=== PATIENT | male | born 1940 | race Hispanic/Latino ===

== ENCOUNTER 2019-11-19 09:31 | Emergency (ER) | payer MEDICARE, MEDICAID, SELFPAY ==
--- NOTE | 2019-11-19 09:57 | ECG_ITS ---
Measurements Intervals [employer] Rate: 60 P: 48 MA: 160 QRS: 39 QRSD: 84 T: 45 QT: 408 QTc: 409 Interpretive Statements SINUS RHYTHM DELAYED PRECORDIAL R/S TRANSITION BORDERLINE ECG Electronically Signed On 11-19-2019 11:45:10 ENGINE ASSEMBLER by Shakir Candelaria D.O.
[2019-11-19 09:58] VITALS: BP 133/66; PULSE 59; RESP 19; TEMP 36.6; O2SAT 100
[2019-11-19 10:15] LABS: Basophils Percent Auto 0.7 % (0.2-1.2); Eosinophils Absolute Auto 0.1 K/mm3 (0-0.3); Eosinophils Percent Auto 0.8 % (0-4.4); Hematocrit 33.5 % (42.0-52.0); Hemoglobin 11.1 g/dL (14.0-18.0); Immature Granulocyte Absolute 0.01 K/mm3 (0.00-0.031); Immature Granulocyte Percent A 0.2 % (0-0.5); Lymphocytes Absolute Auto 1.43 K/mm3 (0.9-3.2); Lymphocytes Percent Auto 24.2 % (18.3-44.2); Mean Corpuscular HGB Conc 33.1 g/dl (32-36); Mean Corpuscular Hemoglobin 32.7 pg (26-34); Mean Corpuscular Volume 98.8 fl (80-100); Mean Platelet Volume 9.4 fl (7.4-10.4); Monocytes Absolute Auto 0.3 K/mm3 (0.1-0.6); Monocytes Percent Auto 5.4 % (2.6-8.5); Neutrophils Absolute Auto 4.1 K/mm3 (1.3-6.7); Neutrophils Percent Auto 68.7 % (45.5-73.1); Platelet Count Result 198 k/mm3 (150-375); Red Blood Count 3.39 M/mm3 (4.6-6.20); Red Cell Distribution Width 12.3 % (11.5-14.5); White Blood Count 5.9 K/mm3 (4.5-10.0)
[2019-11-19 10:35] LABS: Alanine Aminotransferase 16 U/L (4-50); Alkaline Phosphatase 63 U/L (38-126); Aspartate Amino Transferase 24 U/L (17-59); Bilirubin,Total 0.4 mg/dL (0.2-1.3); Blood Urea Nitrogen 17 mg/dL (9-20); Carbon Dioxide 23 mmol/L (22-30); Chloride 103 mmol/L (98-107); Estimated Glomerular Filt Rate > 60; Glucose 121 mg/dL (75-110); Lipase 52 U/L (23-300); Potassium 3.9 mmol/L (3.4-5.0); Sodium 139 mmol/L (137-145)
--- NOTE | 2019-11-19 11:40 | ED.NAVMDI ---
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 Family at bedside translating states that, pt began having discomfort and hearing fluid moving around inside of his rt ear. He also notes feeling dizzy, which he describes as everything spinning, and he feels like he is going to faint. Pt notes his dizziness worsens when standing up and when turning his head to each side. He reports his N/V being accompanied with bloating, epigastric ABD pain, and decreased intake of food or liquids, but denies having a fever, diarrhea, constipation, or having any sick contacts. MD elicited complaint: nausea, vomiting, abdominal pain and other (rt ear discomfort) Onset (ago): day(s) (a couple) Associated nausea: Yes Associated abdominal pain: Yes Location of pain: epigastric and other (rt ear) Quality: other (bloating) Exacerbating factors: movement (dizziness) and standing (dizziness) Associated symptoms: loss of appetite, nausea/vomiting, bloating and other (rt ear discomfort, dizziness, lightheadedness) Related Data Allergies Allergy/AdvReac Type Severity Reaction Status Date / Time atorvastatin Allergy Unknown Unknown Verified 05/30/18 11:29 Review of Systems Review of Systems: All systems reviewed & are unremarkable except as noted in HPI and below Constitutional: Constitutional: Denies fever(s) ENT: Reports vertigo, Reports dizziness and Reports otalgia (rt ear, feels fluid in ears ) Gastrointestinal: Gastrointestinal: Reports abdominal pain (epigastric), Reports bloating, Denies constipation, Denies diarrhea, Reports nausea, Reports vomiting and Reports other (decreased food and liquid intake) PMFSH Past Medical History Medical History (Updated 11/19/19 @ 17:07 by William Soto MD) Anemia Hypercholesteremia Prostate cancer Surgical History Surgical History (Updated 11/19/19 @ 13:37 by Aurora Greenfield DECA) No significant past surgical history Social History Social History (Updated 11/19/19 @ 13:38 by Aurora Greenfield DECA) Smoking status: Unknown if ever smoked Gender identity (if verbalized by the patient): Male Exam Const: General: healthy appearing and no acute distress Nutritional Appearance: well nourished HENMT: Ears: TM abnormal (rt) other (hazy) Mouth: Yes lip normal and Yes dry mucous membranes Eyes: Conjunctivae: conjunctivae normal Pupils: Equal, round and reactive pupils present Resp: Effort & Inspection: normal respiratory effort Auscultation: clear to auscultation bilaterally Cardio: Rate: regular rate Rhythm: regular rhythm Heart sounds: no murmurs GI: GI Palp: Yes abdominal tenderness (epigastric) and Yes Soft to palpation Auscultation: normal bowel sounds Back/Spine/Pelvis: Other: Full ROM Skin: General skin exam: normal color, dry skin and other (warm) Neuro: General: patient oriented x3 (alert) Speech: normal speech Extrem: General: full ROM Psych: Mental Status: mental status grossly normal Affect: normal affect Course Vital Signs Vital signs: Vital Signs Temperature 36.6 C 11/19/19 09:58 Pulse Rate 59 L 11/19/19 09:58 Respiratory Rate 19 11/19/19 09:58 Blood Pressure 133/66 11/19/19 09:58 Pulse Oximetry 100 11/19/19 09:58 Temperature 36.6 C 11/19/19 09:58 Pulse Rate 68 11/19/19 13:30 Respiratory Rate 19 11/19/19 09:58 Blood Pressure 133/71 11/19/19 13:30 Pulse Oximetry 100 11/19/19 09:58 MDM - Nausea/Vomiting/Diarrhea Lab Data Result diagrams: 11/19/19 10:06 11/19/19 10:06 Labs: Lab Results 11/19/19 11/19/19 11/19/19 Range/Units 1
[2019-11-19] MEDS: SODIUM CHLORIDE 0.9% IV 1,000 ML 999 ML IV CONT ×2 (12:07→15:45)
[2019-11-19] MEDS: ONDANSETRON INJ 4 MG/2 ML VIAL IV PUSH (12:07)
[2019-11-19 12:47] LABS: Add Urine Microscopic? NO; Appearance Urine Clear (Clear); Bilirubin Urine Negative (Negative); Blood Urine Negative (Negative); Color Urine Yellow (Yellow); Glucose Urine UA Negative (Negative); Ketones Urine Negative (Negative); Leukocyte Esterase Ur Negative LEU/UL (Negative); Nitrate Urine Negative (Negative); Protein Urine Negative (Negative); Specific Grav Ur 1.016 (1.001-1.035); Urobilinogen Urine Negative mg/dL (<2.0)
[2019-11-19 13:30] VITALS: BP 126/61; BP 127/72; BP 133/71; PULSE 64; PULSE 66; PULSE 68
[2019-11-19 15:00] VITALS: BP 112/78; PULSE 81; RESP 18; O2SAT 98
[2019-11-19] MEDS: MECLIZINE HCL 25 MG TABLET PO (15:45)
[2019-11-19 16:00] VITALS: BP 117/87; PULSE 78; RESP 19; O2SAT 99
[2019-11-19 17:20] VITALS: BP 110/76; PULSE 71; RESP 16; O2SAT 100
== END 2019-11-19 17:20 | disposition home or self-care (01) ==
PROVIDERS: Emergency Provider Emergency Medicine; PCP Internal Medicine Infectious Disease
DX: R11.2 Nausea with vomiting, unspecified (principal); Z85.46 Personal history of malignant neoplasm of prostate; E78.5 Hyperlipidemia, unspecified; R42 Dizziness and giddiness; R94.31 Abnormal electrocardiogram [ECG] [EKG]
CPT/HCPCS: 36415; 80053; 81003; 83690; 85025; 93005; 96361; 96374; 99284; A9270; J2405; J7030

== ENCOUNTER 2021-07-31 08:57 | Emergency (ER) | payer MEDICARE, MEDICAID, SELFPAY ==
[2021-07-31 09:18] VITALS: BP 122/64; PULSE 70; RESP 18; TEMP 37.1; O2SAT 97
--- NOTE | 2021-07-31 09:41 | ED.GENADULT ---
HPI - General Adult General Chief complaint: Dental/Oral Stated complaint: facial swelling Time Seen by Provider: 07/31/21 09:09 Source: patient and family ( and daughter) Mode of arrival: ambulatory Limitations: no limitations History of Present Illness HPI narrative: Patient is a 81-year-old male presenting with chief complaint of right lower jaw dental pain and swelling that has been worsening over the past week. The patient has been under the management of her dentist and last saw them on 07-23-21. Patient states that he needs more work performed as far as treatment and cleaning his teeth however his next appointment is not until September. Patient states that he is on the waiting list hoping to obtain an earlier appointment. Patient denies fever, chills, drainage from the tooth site, nausea, vomiting. He reports that he has been using Neosporin on the tooth and taking the aspirin. He reports the pain is still intense. Patient denies any other injuries or concerns. Related Data Allergies Allergy/AdvReac Type Severity Reaction Status Date / Time atorvastatin AdvReac Unknown Unknown Verified 07/31/21 09:22 Review of Systems Review of Systems: CONSTITUTIONAL: Denies fever, chills, or sweats. EYES: Denies visual changes, redness, or discharge. ENT: Reports dental pain denies rhinorrhea, congestion, sore throat, or otalgia. CARDIOVASCULAR: Denies chest pain, palpitations, or edema. RESPIRATORY: Denies cough or dyspnea. GASTROINTESTINAL: Denies abdominal pain, nausea, vomiting, or diarrhea. GENITOURINARY: Denies dysuria or hematuria. SKIN: Denies rash or itching. MUSCULOSKELETAL: Denies back pain, joint pain, or myalgia. NEUROLOGIC: Denies headache, numbness, dizziness, or weakness. PSYCHIATRIC: Denies anxiety or depression. PMFSH Past Medical History Medical History (Updated 07/31/21 @ 09:41 by Jennie Echols PA-C) Anemia Hypercholesteremia Prostate cancer Surgical History Surgical History (Updated 11/19/19 @ 13:37 by KARINA Macias) No significant past surgical history Social History Social History (Updated 11/19/19 @ 13:38 by KARINA Macias) Smoking status: Unknown if ever smoked Gender identity (if verbalized by the patient): Male Exam Narrative: GENERAL: Well-appearing, well-nourished, and in no acute distress. HEAD: Normocephalic, atraumatic. EYES: PERRLA and EOMI. ENT: Nares clear, no rhinorrhea or epistaxis. Mucous membranes moist. Oropharynx without tonsillar hypertrophy exudate or other lesions. Bilateral TMs pearly loyola nonbulging. Poor dentition throughtout. Tenderness to right lower molar. no abscess noted to gumline. CHEST: Clear to auscultation. No respiratory distress. No wheezes rales or rhonchi HEART: Regular rate and rhythm. EXTREMITIES: Normal range of motion. No edema. SKIN: Warm, dry, no rash. NEURO: No focal deficits. Alert and oriented x3. PSYCH: Normal mood and affect. Course Vital Signs Vital signs: Vital Signs Temperature 98.7 F 07/31/21 09:18 Pulse Rate 70 07/31/21 09:18 Respiratory Rate 18 07/31/21 09:18 Blood Pressure 122/64 07/31/21 09:18 Pulse Oximetry 97 07/31/21 09:18 Temperature 98.7 F 07/31/21 09:18 Pulse Rate 70 07/31/21 09:18 Respiratory Rate 18 07/31/21 09:18 Blood Pressure 122/64 07/31/21 09:18 Pulse Oximetry 97 07/31/21 09:18 Medical Decision Making MDM Narrative Medical decision making narrative: Discussed the importance of definitive treatment with a dentist. Discussed plan of care. Discussed return to emergency department instructions. Patient is nontoxic and vital signs are stable. Patient will be discharged home. Vital Signs Vital Signs: Vital Signs Temperature 98.7 F 07/31/21 09:18 Pulse Rate 70 07/31/21 09:18 Respiratory Rate 18 07/31/21 09:18 Blood Pressure 122/64 07/31/21 09:18 Pulse Oximetry 97 07/31/21 09:18 Temperature 98.7 F 07/31/21 09:18 Pulse Ra
[2021-07-31] MEDS: traMADol HCL (*CRX) 50 MG TABLET PO (10:08)
[2021-07-31 10:12] VITALS: BP 118/90; PULSE 71; RESP 14; TEMP 36.5; O2SAT 98
== END 2021-07-31 10:13 | disposition home or self-care (01) ==
LOC: ANHED 09:50
PROVIDERS: Emergency Provider Emergency Medicine; PCP Internal Medicine Infectious Disease
DX: K02.9 Dental caries, unspecified (principal); K08.89 Other specified disorders of teeth and supporting structures; E78.00 Pure hypercholesterolemia, unspecified; Z85.46 Personal history of malignant neoplasm of prostate; Z86.2 Personal history of diseases of the blood and blood-forming organs and certain disorders involving the immune mechanism
CPT/HCPCS: 99283; A9270

== ENCOUNTER 2022-07-23 07:52 | Inpatient (IN) | payer MEDICARE, MEDICAID, SELFPAY ==
[2022-07-23] VITALS (20 sets, daily range): BP systolic 127–166; BP diastolic 61–80; PULSE 58–74; RESP 16–20; TEMP 36.3–36.4; O2SAT 96–100; BMI 22.0
--- NOTE | ~2022-07-23 | MR_ITS ---
EXAMINATION: MR brain/brain stem wo/w con DATE: 07/24/2022 09:34 INDICATION: Vertebral artery occlusion. TECHNIQUE: Magnetic resonance imaging (MRI) of the brain and brainstem was performed without and with 11 mL MultiHance intravenous contrast. COMPARISON: None. 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 There are scattered areas of nonspecific incre ased T2-weighted signal intensity in the cerebral white matter, which is within normal limits for the patient's age. There is no intracranial hemorrhage, acute infarction, or abnormal intracranial mass lesion. The ventricles are normal in size. The orbits are normal. There is mild mucosal thickening in the paranasal sinuses. The mastoid air cells are normal. IMPRESSION: 1. 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 Reviewed, dictated and finalized at location B.
--- NOTE | ~2022-07-23 | NM_ITS ---
EXAMINATION: NM bone scan whole body DATE: 07/25/2022 13:53 INDICATION: Metastatic prostate cancer. TECHNIQUE: 22.9 mCi Tc-99m HDP was administered intravenously. Delayed whole-body scintigrams were o btained. COMPARISON: CT neck 07/23/2022, CT chest, abdomen, and pelvis 09/07/2013 FINDINGS: There is increased activity in the mandible. There is joint-centered increased activity in the acromioclavicular joints, sternoclavicular joints, knees, and wrists, likely osteoarthritis. Ther e is increased activity in the spine. There is increased activity in the intertrochanteric region of proximal left femur. IMPRESSION: 1. Increased activity in the mandible correlating with a mixed lytic and sclerotic pattern by CT, whi ch may be metastatic disease and/or osteonecrosis. 2. Increased activity in the spine, consistent with spondylosis and/or metastatic disease. Consider c orrelation with CT. 3. Increased activity in the intertrochanteric region of proximal left femur suspicious for metastati c disease. Consider correlation with radiographs or CT. Reviewed, dictated and finalized at location B. IMPRESSION: 1. Increased activity in the mandible correlating with a mixed lytic and sclero tic pattern by CT, which may be metastatic disease and/or osteonecrosis. 2. Increased activity in the spine, consistent with spondylosis and/or metastat ic disease. Consider correlation with CT. 3. Increased activity in the intertrochanteric region of proximal left femur lopez spicious for metastatic disease. Consider correlation with radiographs or CT.
--- NOTE | ~2022-07-23 | CT_ITS ---
EXAMINATION: CT soft tissue neck w con DATE: 07/23/2022 09:19 INDICATION: Left facial pain and swelling. TECHNIQUE: Computed tomography (CT) of the neck was performed with 75 mL Omnipaque-350 intravenous co ntrast. Automated exposure control and iterative reconstruction technique were employed. The dose-valerie gth product was 510.25 mGy-cm. COMPARISON: Neck CT 08/27/2013 FINDINGS: The pharynx and larynx are normal. There is plaque in the proximal internal carotid arterie s with less than 50% stenosis relative to normal distal artery lumen diameter. 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 There is mild mediastinal lymphadenopathy. 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 There is severe cervical spondylosis. There are scattered scleroti c lesions in the spine. There is a mixed lytic and sclerotic pattern involving the mandible. There is fat stranding in left face. There is mild mucosal thickening in the paranasal sinuses. IMPRESSION: 1. Mixed lytic and sclerotic pattern in the mandible, which may be metastatic disease and/or osteonec rosis. 2. Worsened widespread sclerotic lesions of bone, consistent with metastatic disease. 3. Mild mediastinal lymphadenopathy, improved from 08/27/2013, which is indeterminate for residual me tastatic disease. 4. 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 Reviewed, dictated and finalized at location B. IMPRESSION: 1. Mixed lytic and sclerotic pattern in the mandible, which may be metastatic d isease and/or osteonecrosis. 2. Worsened widespread sclerotic lesions of bone, consistent with metastatic di sease. 3. Mild mediastinal lymphadenopathy, improved from 08/27/2013, which is indeter minate for residual metastatic disease. 4. 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
--- NOTE | 2022-07-23 07:56 | ED.DENTAL ---
HPI - Dental/Oral General Chief complaint: Dental/Oral Stated complaint: left sided facial swelling Time Seen by Provider: 07/23/22 07:56 Source: patient and family Mode of arrival: ambulatory Limitations: no limitations History of Present Illness HPI Narrative: Patient is an 82-year-old male presenting for evaluation of left-sided aching jaw pain that extends from his ear into his lower mandible. Patient reports pain has been worsening over the past 3 days but reports he has a history of this in the past that did resolve with antibiotics. Patient has a longstanding history of dental pain with tooth extraction in the past. Patient denies fever, chills. He denies facial redness. He had denies difficulty with chewing or swallowing. He denies significant But does report mild left-sided lower facial swelling. He denies nausea, vomiting, vision changes. He denies specific ear pain or discharge just reports radiation of mild pain from the left jaw into his ear. Describes as an aching pain. He did take medication for pain yesterday but does not know the name of it. In the past, patient symptoms have resolved with amoxicillin. ER chart reviewed, in the past patient has been seen at this facility, discharged home on amoxicillin. Related Data Allergies Allergy/AdvReac Type Severity Reaction Status Date / Time atorvastatin AdvReac Unknown Unknown Verified 07/23/22 08:11 Review of Systems Review of Systems: CONSTITUTIONAL: Denies fever HEENT: Reports left jaw pain, mild left jaw swelling CARDIOVASCULAR: Denies chest pain RESPIRATORY: Denies cough or dyspnea. GASTROINTESTINAL: Denies abdominal pain SKIN: Denies rash MUSCULOSKELETAL: Denies back pain NEUROLOGIC: Denies headache PMFSH Past Medical History Medical History Anemia Hypercholesteremia Prostate cancer Surgical History Surgical History No significant past surgical history Social History Social History Smoking status: Unknown if ever smoked Gender identity (if verbalized by the patient): Male Exam Narrative: GENERAL: Awake, alert, conversant HEAD: Normocephalic, atraumatic. Mild left lower mandibular edema. EYES: PERRLA and EOMI. ENT: Nares clear, no rhinorrhea or epistaxis. Mucous membranes moist. Uvula is midline. There is a second row of incisor molar dentition of the lower mandible that is present. Mild elevation of the soft palate. No trismus. No evidence of periapical abscess. NECK: Supple. No lymphadenopathy. No edema. CHEST: No respiratory distress, breathing even and non labored HEART: Regular rate, sinus rhythm ABDOMEN:Non distended, non tender EXTREMITIES: Normal range of motion. No edema. SKIN: Warm, dry, no rash. NEURO:No focal deficits. Alert and oriented x3. EOMs intact without nystagmus. No facial droop/asymmetry noted bilaterally. Grimace intact. Intact sensation in face. Hearing intact bilaterally. Shoulder shrug intact. Strength 5/5 bilateral upper extremities. Strength 5/5 bilateral lower extremities. Reflexes 2+ patellar. Heel to baxter intact bilaterally. Amatory with a narrow base, steady gait, no ataxia. Course Vital Signs Vital signs: Vital Signs Temperature 36.3 C L 07/23/22 08:09 Pulse Rate 74 07/23/22 08:09 Respiratory Rate 18 07/23/22 08:09 Blood Pressure 166/78 H 07/23/22 08:09 Pulse Oximetry 98 07/23/22 08:09 Oxygen Delivery Room Air 07/23/22 08:09 Temperature 36.3 C L 07/23/22 08:09 Pulse Rate 60 07/23/22 13:18 Respiratory Rate 18 07/23/22 13:18 Blood Pressure 147/61 H 07/23/22 13:18 Pulse Oximetry 98 07/23/22 13:18 Oxygen Delivery Room Air 07/23/22 08:09 MDM - Dental/Oral MDM Narrative Medical decision making narrative: Patient presenting for evaluation of acute on chronic worsening of left mandibular pain
[2022-07-23] MEDS: ACETAMINOPHEN 500 MG TABLET 1000 MG PO (08:36)
[2022-07-23] MEDS: IBUPROFEN 400 MG TABLET PO (08:37)
[2022-07-23 08:41] LABS: Basophils Percent Auto 0.3 % (0.2-1.2); Eosinophils Absolute Auto 0.1 K/mm3 (0-0.3); Hematocrit 32.6 % (42.0-52.0); Hemoglobin 10.9 g/dL (14.0-18.0); Immature Granulocyte Absolute 0.02 K/mm3 (0.00-0.031); Immature Granulocyte Percent A 0.3 % (0-0.5); Lymphocytes Absolute Auto 2.02 K/mm3 (0.9-3.2); Lymphocytes Percent Auto 33.7 % (18.3-44.2); Mean Corpuscular HGB Conc 33.4 g/dl (32-36); Mean Corpuscular Hemoglobin 32.4 pg (26-34); Mean Platelet Volume 9.4 fl (7.4-10.4); Monocytes Absolute Auto 0.4 K/mm3 (0.1-0.6); Monocytes Percent Auto 7.2 % (2.6-8.5); Neutrophils Absolute Auto 3.4 K/mm3 (1.3-6.7); Neutrophils Percent Auto 56.5 % (45.5-73.1); Platelet Count Result 246 k/mm3 (150-375); Red Blood Count 3.36 M/mm3 (4.6-6.20); Red Cell Distribution Width 13.2 % (11.5-14.5)
[2022-07-23 08:55] LABS: Anion Gap 8 mmol/L (8-16); Blood Urea Nitrogen 15 mg/dL (9-20); Calcium 8.7 mg/dL (8.4-10.2); Carbon Dioxide 26 mmol/L (22-30); Chloride 106 mmol/L (98-107); Estimated CRCL calculation 39 ml/min; Estimated Glomerular Filt Rate > 60; Glucose 94 mg/dL (65-110); Potassium 3.6 mmol/L (3.4-5.0); Sodium 140 mmol/L (137-145)
[2022-07-23] MEDS: ASPIRIN 81 MG CHEWABLE TABLET 324 MG PO (13:20)
[2022-07-23] MEDS: CLINDAMYCIN 600 MG/D5W 50 ML 600 MG/50 ML PIGGYBACK 100 MG IVPB ×2 (13:21→21:40)
[2022-07-23 13:34] LABS: SARS-CoV-2 RNA PCR Negative
[2022-07-23 15:00] LABS: CRP 2.1 mg/dL (<1.0)
[2022-07-23 15:04] LABS: Erythrocyte Sedimentation Rate 123 mm/hr (0-20)
--- NOTE | 2022-07-23 15:30 | PM.IMHP ---
H&P: HPI History of Present Illness Date/Time: 07/23/22 1530 Chief Complaint: Jaw swelling and pain Narrative: Patient is an 82-year-old speaking male with a past medical history of anemia, hypercholesteremia, prostate cancer who presented to the ED with complaints of swollen left cheek for the last 5 days. Patient stated that he has not really had much pain however he felt like he was having an infection flare up. He stated that he has had multiple episodes of this in the past and recently he went to the dentist and got a deep cleaning. At that time they also did some did to work and he thought it might have been infection flare up from that. He does state that he has pain however it is very little and at last for couple seconds and goes away. He denies any chest pain, shortness a breath, nausea, vomiting, diarrhea, constipation, lightheadedness, weakness, fatigue. He did state that he is eating. CT of the soft tissue did show that he has what appears to be a metastatic bone cancer. Patient does deny any drainage or bad taste in his mouth. He also states that he is not having any issues with eating. The ED did consult ENT and neuro due to the new finding of a thrombosis on the CT. Currently patient appears to be comfortable. Patient is being admitted to the hospitalist service as observation Was taken with Jose Manriquez ID # [id number] Review of Systems Review of Systems: All systems reviewed & are unremarkable except as noted in HPI and below PMFSH Past Medical History Medical History Anemia Hypercholesteremia Prostate cancer Surgical History Surgical History No significant past surgical history Family History Family History (Updated 07/23/22 @ 18:17 by MELVI Wheeler) Other Unknown family medical history Social History Social History (Updated 07/23/22 @ 18:18 by MELVI Wheeler) Social History: Patient lives at home with his Chitra and has been to her for 50 years. They do have 1 dog and 6 children. He wishes to be a full code at this time. Smoking status: Never smoker Alcohol intake: never Substance use: never Living arrangements: with family Occupation/Education: retired Gender identity (if verbalized by the patient): Male Sexual Orientation (if Verbalized by the Patient): Straight or Heterosexual Spiritual care concerns: No Has the Lack of Transportation Kept You From Medical Appointments or From Getting Medications?: No Within the Past 12 Months, Were You Worried Whether Your Food Would Run Out Before You Got Money to Buy More?: Never True What is Your Housing Situation Today?: I Have Housing Are You Worried That in the Next 2 Months, You May Not Have Your Own Housing to Live In?: No Do You Have Trouble Paying Your Heating Or Electricity Bill?: No Do You Have Trouble Paying For Medicines?: No Are You Currently Unemployed and Looking for Work?: No Highest Level of Education Completed: Grade School Do You Have Trouble With Childcare or the Care of a Family Member?: No Meds Home Medications and Allergies Home Medications Medication Instructions Recorded Confirmed Type abiraterone 250 mg tablet 500 mg PO DAILY 07/23/22 07/23/22 History fluticasone propionate 50 2 spray intranasal DAILY 07/23/22 07/23/22 History mcg/actuation nasal spray,suspension ibuprofen 800 mg tablet 800 mg PO Q6H PRN Pain 07/23/22 07/23/22 History mirabegron 50 mg tablet,extended 50 mg PO DAILY 07/23/22 07/23/22 History release 24 hr (Myrbetriq) prednisone 5 mg tablet 5 mg PO BID 07/23/22 07/23/22 History tamsulosin 0.4 mg capsule 0.4 mg PO DAILY 07/23/22 07/23/22 History Allergies Allergy/AdvReac Type Severity Reaction Status Date / Time atorvastatin AdvReac Unknown Unknown Verified 07/23/22 16:40 Vital Signs Vital Signs - 2
--- NOTE | 2022-07-23 16:35 | ADMGEN ---
This patient, Balaji Alonzo, was admitted to 2 Medical Room 256-. Patient/family oriented to hospital policies and general routines including ID bracelet, bed and alarms, visiting hours, pain management, procedures, bathroom and other care routines, personal items, smoking policy, room service/diet, and visiting hours. Information on how to activate the Rapid Response Team has been discussed. Patient/Family are encouraged to report perceived risks to care and to ask questions if they do not understand what they are told or what they should do.
[2022-07-24] VITALS: PULSE 82
[2022-07-24 04:00] VITALS: PULSE 65
[2022-07-24 05:41] LABS: Basophils Percent Auto 0.4 % (0.2-1.2); Eosinophils Absolute Auto 0.2 K/mm3 (0-0.3); Eosinophils Percent Auto 3.2 % (0-4.4); Hemoglobin 10.1 g/dL (14.0-18.0); Immature Granulocyte Absolute 0.02 K/mm3 (0.00-0.031); Immature Granulocyte Percent A 0.4 % (0-0.5); Lymphocytes Absolute Auto 2.06 K/mm3 (0.9-3.2); Lymphocytes Percent Auto 36.9 % (18.3-44.2); Mean Corpuscular HGB Conc 33.7 g/dl (32-36); Mean Corpuscular Hemoglobin 32.3 pg (26-34); Mean Corpuscular Volume 95.8 fl (80-100); Mean Platelet Volume 9.4 fl (7.4-10.4); Monocytes Absolute Auto 0.4 K/mm3 (0.1-0.6); Monocytes Percent Auto 7.5 % (2.6-8.5); Neutrophils Absolute Auto 2.9 K/mm3 (1.3-6.7); Neutrophils Percent Auto 51.6 % (45.5-73.1); Platelet Count Result 219 k/mm3 (150-375); Red Blood Count 3.13 M/mm3 (4.6-6.20); Red Cell Distribution Width 13.1 % (11.5-14.5); White Blood Count 5.6 K/mm3 (4.5-10.0)
[2022-07-24 05:50] LABS: Alanine Aminotransferase 13 U/L (6-50); Albumin Level 3.5 g/dL (3.5-5.1); Alkaline Phosphatase 80 U/L (38-126); Anion Gap 7 mmol/L (8-16); Aspartate Amino Transferase 21 U/L (17-59); Bilirubin,Total 0.4 mg/dL (0.2-1.3); Blood Urea Nitrogen 12 mg/dL (9-20); Calcium 8.4 mg/dL (8.4-10.2); Carbon Dioxide 24 mmol/L (22-30); Chloride 107 mmol/L (98-107); Estimated CRCL calculation 44 ml/min; Estimated Glomerular Filt Rate > 60; Glucose 87 mg/dL (65-110); Potassium 3.4 mmol/L (3.4-5.0); Sodium 138 mmol/L (137-145)
[2022-07-24 05:59] LABS: Iron 67 ug/dL (49-181); Transferrin 167 mg/dL (206-381)
[2022-07-24 06:00] VITALS: BP 151/60; PULSE 64; RESP 18; TEMP 36.7; O2SAT 97
[2022-07-24] MEDS: CLINDAMYCIN 600 MG/D5W 50 ML 600 MG/50 ML PIGGYBACK 100 MG IVPB ×3 (06:09→22:44)
[2022-07-24 06:10] LABS: Percent Iron Saturation 29 % (20-50)
[2022-07-24 07:09] LABS: Vitamin B12 > 1000.0 pg/mL (239-931)
[2022-07-24 08:00] VITALS: PULSE 65
[2022-07-24] MEDS: predniSONE 20 MG TABLET PO (09:50)
[2022-07-24] MEDS: MIRABEGRON 50 MG ER TABLET PO (09:50)
[2022-07-24] MEDS: TAMSULOSIN HCL 0.4 MG CAPSULE PO (09:50)
[2022-07-24] MEDS: ENOXAPARIN 40 MG/0.4 ML SYRINGE SUB-Q (09:50)
[2022-07-24] MEDS: CLOPIDOGREL BISULFATE 75 MG TABLET PO (09:51)
[2022-07-24] MEDS: FLUTICASONE PROPIONATE 0.05% NA SPR 16 GM BTL (*BKC) 2 SPRAY NASAL (09:51)
[2022-07-24] MEDS: ACETAMINOPHEN 325 MG TABLET 650 MG PO (09:56)
[2022-07-24] MEDS: HYDROcodone/acetaminophen (*CRX) 5-325 MG TABLET 1 TAB PO (10:14)
--- NOTE | 2022-07-24 10:30 | PM.IMPN ---
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 - Osteonecrosis, unspecified Status: Acute Assessment and Plan: CT of the neck shows lytic and sclerotic pattern of the mandible which reflects metastatic disease or osteonecrosis, worsened widespread sclerotic lesions in the bone consistent with metastatic disease ENT consulted Clindamycin IV initiated WBCs 5.6 Continue trend labs Trend left face for response to antibiotics (2) Occlusion of vertebral artery: Code(s): I65.09 - Occlusion and stenosis of unspecified vertebral artery Status: Acute Assessment and Plan: CT of the neck shows occlusion of the vertebral artery ED consulted was u Neurology who stated the patient does not need any intervention at this time Patient asymptomatic Trend neurological status Neuro consulted (3) Osteomyelitis: Code(s): M86.9 - Osteomyelitis, unspecified Status: Acute Assessment and Plan: Concerns for osteomyelitis on CT ENT consulted Continue IV clindamycin for now Trend labs Adjust therapy as indicated (4) Osteolytic lesion due to metastasis: Code(s): C79.51 - Secondary malignant neoplasm of bone Status: Acute Assessment and Plan: CT indicates metastasis Oncology consulted Will need a biopsy of some sort Await recommendations from Oncology (5) Anemia: Code(s): D64.9 - Anemia, unspecified Status: Acute Assessment and Plan: H&H stable at 10.1/30.0 Anemia labs iron 67, TIBC 233,% saturation 29, transferrin 167, ferritin 123, B12 greater than a 1000, folate 5 Supplement not indicated at this time Trend H&H Adjust therapy as indicated Transfuse of less than 7 Time Spent With Patient Time with patient: Greater than 35 minutes Subjective Date/time seen: 07/24/22 1030 Interval history: 07/24/22 1030 Patient was lying in bed. Patient asked if his family could interpret for him. His daughter did interpret for him. He did state that he is having pain about every 7 minutes and it just radiates up to his ear. He denies any current chest pain, nausea, vomiting, shortness of breath, weakness or fatigue. He does see Dr. Salguero at [facility] for his cancer treatment currently. I did explain to him that I think that this might be metastatic disease as the CT reads mostly metastatic disease. Still awaiting ENT at this time. According to his daughter the patient stated that he had thoughts this might be the cancer spreading. Currently patient is comfortable family was updated and all questions were answered. 07/23/22? [id number] Patient is an 82-year-old speaking male with a past medical history of anemia, hypercholesteremia, prostate cancer who presented to the ED with complaints of swollen left cheek for the last 5 days.? Patient stated that he has not really had much pain however he felt like he was having an infection flare up.? He stated that he has had multiple episodes of this in the past and recently he went to the dentist and got a deep cleaning.? At that time they also did some did to work and he thought it might have been infection flare up from that.? He does state that he has pain however it is very little and at last for couple seconds and goes away.? He denies any chest pain, shortness a breath, nausea, vomiting, diarrhea, constipation, lightheadedness, weakness, fatigue.? He did state that he is eating.? CT of the soft tissue did show that he has what appears to be a metastatic bone cancer.? Patient does deny any drainage or bad taste in his mouth.? He also states that he is not having any issues with eating.? The ED did consult ENT and neuro due to the new finding of a thrombosis on the CT.? Currently patient appears to be comfortable. Patient is being admitted to the hospitalist service as observation Review of Sys
--- NOTE | 2022-07-24 10:30 | P.PNIM_ITS ---
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 - Osteonecrosis, unspecified Status: Acute Assessment and Plan: * CT of the neck shows lytic and sclerotic pattern of the mandible which reflects metastatic disease or osteonecrosis, worsened widespread sclerotic lesions in the bone consistent with metastatic disease * ENT consulted * Clindamycin IV initiated * WBCs 5.6 * Continue trend labs * Trend left face for response to antibiotics (2) Occlusion of vertebral artery: Code(s): I65.09 - Occlusion and stenosis of unspecified vertebral artery Status: Acute Assessment and Plan: * CT of the neck shows occlusion of the vertebral artery * ED consulted was u Neurology who stated the patient does not need any intervention at this time * Patient asymptomatic * Trend neurological status * Neuro consulted (3) Osteomyelitis: Code(s): M86.9 - Osteomyelitis, unspecified Status: Acute Assessment and Plan: * Concerns for osteomyelitis on CT * ENT consulted * Continue IV clindamycin for now * Trend labs * Adjust therapy as indicated (4) Osteolytic lesion due to metastasis: Code(s): C79.51 - Secondary malignant neoplasm of bone Status: Acute Assessment and Plan: * CT indicates metastasis * Oncology consulted * Will need a biopsy of some sort * Await recommendations from Oncology (5) Anemia: Code(s): D64.9 - Anemia, unspecified Status: Acute Assessment and Plan: * H&H stable at 10.1/30.0 * Anemia labs iron 67, TIBC 233,% saturation 29, transferrin 167, ferritin 123, B12 greater than a 1000, folate 5 * Supplement not indicated at this time * Trend H&H * Adjust therapy as indicated * Transfuse of less than 7 Time Spent With Patient Time with patient: Greater than 35 minutes Subjective Date/time seen: 07/24/22 1030 Interval history: 07/24/22 1030 Patient was lying in bed. Patient asked if his family could interpret for him. His daughter did interpret for him. He did state that he is having pain about every 7 minutes and it just radiates up to his ear. He denies any current chest pain, nausea, vomiting, shortness of breath, weakness or fatigue. He does see Dr. Salguero at [facility] for his cancer treatment currently. I did explain to him that I think that this might be metastatic disease as the CT reads mostly metastatic disease. Still awaiting ENT at this time. According to his daughter the patient stated that he had thoughts this might be the cancer spreading. Currently patient is comfortable family was updated and all questions were answered. 07/23/22? [id number] Patient is an 82-year-old speaking male with a past medical history of anemia, hypercholesteremia, prostate cancer who presented to the ED with complaints of swollen left cheek for the last 5 days.? Patient stated that he has not really had much pain however he felt like he was having an infection flare up.? He stated that he has had multiple episodes of this in the past and recently he went to the dentist and got a deep cleaning.? At that time they also did some did to work and he thought it might have been infection flare up from that.? He does state that he has pain however it is very little and at last for couple seconds and goes away.? He denies any chest pain, shortness a breath, nausea, vomiting, diarrhea, constipation, lighthea
--- NOTE | 2022-07-24 12:56 | WPDNEURCNPN ---
Assessment and Plan Assessment and plan (1) Occlusion of vertebral artery: Code(s): I65.09 - Occlusion and stenosis of unspecified vertebral artery Status: Acute (2) Osteonecrosis of jaw: Code(s): M87.9 - Osteonecrosis, unspecified Status: Acute Plan 1 status post right vertebral artery occlusion with retrograde flow 2 metastatic disease 3 considering the underlying malignant taken continue only aspirin 81 mg daily no surgical intervention at this particular time and follow-up with the oncology Consult date: 07/24/22 Time Seen: 11:30 Reason for consult: Left-sided facial swelling HPI: Balaji Alonzo is a 82 year old male admitted to the hospital through the emergency room where he presented for the left-sided aching jaw pain from ear into his lower mandible worsening over the last 72 hours and also with longstanding history of dental pain with tooth extraction in the past. He gave no history of any other associated generalized symptomatology, no difficulties in chewing or swallowing no pain in his ear or discharge from the ear. He is known to be allergic to atorvastatin has ongoing history of anemia, hypercholesterolemia, and prostatic cancer, initial neurological examination in the emergency room was nonfocal with normal vital signs and blood pressure of 166/78. CT scan of the neck revealed evidence of left mandibular osteonecrosis versus the possibility of osteomyelitis in addition to incidental finding a vertebral artery occlusion but he had no signs of a stroke otherwise patient was started on IV clindamycin and oral steroid as per the recommendation of Dr. Espino ENT specialist MRI was recommended before any further neurological intervention could be done. CBC normal basic metabolic panel normal SARS-CoV-2 id negative soft tissue of the neck CT scan revealed mixed lytic and sclerotic pattern in the mandibular region raising the possibility of the metastatic disease and osteophyte necrosis widespread sclerotic lesions of bone were seen again compatible with metastatic disease in addition most of the right vertebral artery was documented which was new from August of 2013 the study was compared with study done in August of 2013 there was 50% stenosis of the right carotid bulb relative distal artery with new plaque at the left carotid bulb is still with 0% stenosis of the left carotid bulb right vertebral artery was thrombosed with prominent calcification at its origin and reconstitution of minimal amount of contrast in the upper cervical portion right vertebral artery could be secondary to collaterals or retrograde supply from the left vertebral artery left vertebral artery was normal there was no intracranial thrombosis or aneurysm formation cerebral arteries were symmetrical Review of Systems Review of Systems: All systems reviewed & are unremarkable except as noted in HPI and below PMFSH Past Medical History Medical History Anemia Hypercholesteremia Prostate cancer Surgical History Surgical History No significant past surgical history Family History Family History (Updated 07/23/22 @ 18:17 by MELVI Wheeler) Other Unknown family medical history Social History Social History (Updated 07/23/22 @ 18:18 by MELVI Wheeler) Social History: Patient lives at home with his Chitra and has been to her for 50 years. They do have 1 dog and 6 children. He wishes to be a full code at this time. Smoking status: Never smoker Alcohol intake: never Substance use: never Living arrangements: with family Occupation/Education: retired Gender identity (if verbalized by the patient): Male Sexual Orientation (if Verbalized by the Patient): Straight or Heterosexual Spiritual care concerns: No Has the Lack of Transportation Kept You From Medical Appointments or
[2022-07-24 14:24] VITALS: BP 112/53; PULSE 69; RESP 16; TEMP 36.2; O2SAT 96
--- NOTE | 2022-07-24 17:18 | WPDCN ---
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 From an ENT standpoint I would recommend referral to Oral maxillofacial surgeon for further evaluation treatment excess dentition. Patient would likely benefit from having these removed. Please call with any questions, consider referral to [facility] or [facility] Head [facility] neck Oncology as well the media able to manage this if it is a recurrent process. No acute otolaryngologic intervention unless Oncology would like biopsied. (2) Osteolytic lesion due to metastasis: Code(s): C79.51 - Secondary malignant neoplasm of bone Status: Acute HPI Data of Consult Date/Time: 07/24/22 17:18 Requesting Physician: Jeana Gonzalez DO Primary Care Provider: Rachel OneillZofia Consult Narrative Reason for consult: Jaw lesion Narrative: Balaji Alonzo is a 82 year old male with history of prostate cancer patient reports it has been cleared by oncologist. Admitted with radiation and recent facial swelling CT demonstrates lytic changes in the bone excess bone excess dentition as well. Patient reports he is feeling much better following a dose of steroids in course of antibiotics or current antibiotics. Patient reports a history of having more than normal the amount of teeth. He reports the bone has been changing by the teeth as well. PMFSH Past Medical History Medical History Anemia Hypercholesteremia Prostate cancer Surgical History Surgical History No significant past surgical history Family History Family History (Updated 07/23/22 @ 18:17 by MELVI Wheeler) Other Unknown family medical history Social History Social History (Updated 07/23/22 @ 18:18 by MELVI Wheeler) Social History: Patient lives at home with his Chitra and has been to her for 50 years. They do have 1 dog and 6 children. He wishes to be a full code at this time. Smoking status: Never smoker Alcohol intake: never Substance use: never Living arrangements: with family Occupation/Education: retired Gender identity (if verbalized by the patient): Male Sexual Orientation (if Verbalized by the Patient): Straight or Heterosexual Spiritual care concerns: No Has the Lack of Transportation Kept You From Medical Appointments or From Getting Medications?: No Within the Past 12 Months, Were You Worried Whether Your Food Would Run Out Before You Got Money to Buy More?: Never True What is Your Housing Situation Today?: I Have Housing Are You Worried That in the Next 2 Months, You May Not Have Your Own Housing to Live In?: No Do You Have Trouble Paying Your Heating Or Electricity Bill?: No Do You Have Trouble Paying For Medicines?: No Are You Currently Unemployed and Looking for Work?: No Highest Level of Education Completed: Grade School Do You Have Trouble With Childcare or the Care of a Family Member?: No Meds Home Medications and Allergies Home Medications Medication Instructions Recorded Confirmed Type abiraterone 250 mg tablet 500 mg PO DAILY 07/23/22 07/23/22 History fluticasone propionate 50 2 spray intranasal DAILY 07/23/22 07/23/22 History mcg/actuation nasal spray,suspension ibuprofen 800 mg tablet 800 mg PO Q6H PRN Pain 07/23/22 07/23/22 History mirabegron 50 mg tablet,extended 50 mg PO DAILY 07/23/22 07/23/22 History release 24 hr (Myrbetriq) prednisone 5 mg tablet 5 mg PO BID 07/23/22 07/23/22 History tamsulosin 0.4 mg capsule 0.4 mg PO DAILY 07/23/22
--- NOTE | 2022-07-24 19:16 | PDONCCN ---
HPI - Date of Consult Date/Time: 07/24/22 19:16 Requesting Physician: Jeana Gonzalez DO Primary Care Provider: Rachel OneillZofia - Consult Narrative Reason for consult: Jaw lesion Narrative: Balaji Alonzo is a 82 year old male with history of prostate cancer diagnosed 6 years ago currently receiving treatment with Lupron and Zometa under Dr. Salguero supervision. Patient came into the ER with left neck and cheek area swelling for last 5 days duration. He has some pain in that region. Denies any fevers chills and sore throat. He denies any other bone pain. CT soft tissue neck showed mixed lytic and sclerotic lesion in the mandible concerning for metastatic disease or osteonecrosis of the jaw. Worsened sclerotic bone metastasis and mild mediastinal lymphadenopathy. Labs showed mild anemia. Patient was also seen by ENT as well. Review of Systems - Review of Systems All systems reviewed & are unremarkable except as noted in HPI and [facility] Medical History: Medical History (Last Reviewed 07/23/22 @ 18:17 by MELVI Wheeler) Anemia Hypercholesteremia Prostate cancer Surgical History: Surgical History (Last Reviewed 07/23/22 @ 18:17 by MELVI Wheeler) No significant past surgical history Family History: Family History (Last Updated 07/23/22 @ 18:17 by MELVI Wheeler) Other Unknown family medical history - Social History Social History: Social History (Last Updated 07/23/22 @ 18:18 by MELVI Wheeler) Gender Identity: Gender identity (if verbalized by the patient): Male Sexual Orientation: Sexual Orientation (if Verbalized by the Patient): Straight or Heterosexual Alcohol Use: Alcohol intake: never Substance Use: Substance use: never Others: Spiritual care concerns: No Living Arrangements: Living arrangements: with family Oppucation/Education: Occupation/Education: retired Smoking Status: Smoking status: Never smoker Social Determinants of Health: Has the Lack of Transportation Kept You From Medical Appointments or From Getting Medications?: No Within the Past 12 Months, Were You Worried Whether Your Food Would Run Out Before You Got Money to Buy More?: Never True What is Your Housing Situation Today?: I Have Housing Are You Worried That in the Next 2 Months, You May Not Have Your Own Housing to Live In?: No Do You Have Trouble Paying Your Heating Or Electricity Bill?: No Do You Have Trouble Paying For Medicines?: No Are You Currently Unemployed and Looking for Work?: No Highest Level of Education Completed: Grade School Do You Have Trouble With Childcare or the Care of a Family Member?: No Exam - Vital Signs Vital Signs - 24 hr 07/23/22 20:00 07/23/22 22:30 07/24/22 00:00 Temperature 36.4 C L Pulse Rate 60 59 L 82 Respiratory Rate 20 Blood Pressure 135/67 Pulse Oximetry 98 07/24/22 04:00 07/24/22 06:00 07/24/22 14:24 Temperature 36.7 C 36.2 C L Pulse Rate 65 64 69 Respiratory Rate 18 16 Blood Pressure 151/60 H 112/53 L Pulse Oximetry 97 96 07/24/22 08:00 Temperature Pulse Rate 65 Respiratory Rate Blood Pressure Pulse Oximetry - Exam HEENT: EOMI, PERRLA Neck: supple Lungs: clear to auscultation, normal air movement Heart: no murmurs, gallops, or rubs, regular rhythm Abdomen: abdomen soft, non-distended, normal bowel sounds Extremities: normal pulses Integumentary: no abnormalities Psychological: mental status NL, mood NL (Swelling of the left mandible with prominent left buccal mucosa) - Lab Results Laboratory Last Values WBC 5.6 K/mm3 (4.5-10.0) 07/24/22 05:16 RBC 3.13 M/mm3 (4.6-6.20) L 07/24/22 05:16 Hgb 10.1 g/dL (14.0-18.0) L 07/24/22 05:16 Hct 30.0 % (42.0-52.0) L 07/24/22 05:16 MCV 95.8 fl (80-100) 07/24/22 05:16 MCH 32.3 pg (26-34) 07/24/22 05:16
[2022-07-24 20:23] LABS: Prostate Specific Antigen 30.3 ng/mL (< OR = 4.0)
[2022-07-24 22:13] VITALS: BP 133/66; PULSE 74; RESP 21; TEMP 36.6; O2SAT 100
[2022-07-25 05:44] LABS: Hematocrit 28.8 % (42.0-52.0); Hemoglobin 9.9 g/dL (14.0-18.0); Mean Corpuscular HGB Conc 34.4 g/dl (32-36); Mean Corpuscular Hemoglobin 32.6 pg (26-34); Mean Corpuscular Volume 94.7 fl (80-100); Mean Platelet Volume 9.5 fl (7.4-10.4); Platelet Count Result 240 k/mm3 (150-375); Red Blood Count 3.04 M/mm3 (4.6-6.20); White Blood Count 5.4 K/mm3 (4.5-10.0)
[2022-07-25] MEDS: CLINDAMYCIN 600 MG/D5W 50 ML 600 MG/50 ML PIGGYBACK 100 MG IVPB ×3 (05:58→22:01)
[2022-07-25 06:00] VITALS: BP 148/67; PULSE 68; RESP 18; TEMP 36.4; O2SAT 96
[2022-07-25 06:03] LABS: Alanine Aminotransferase 13 U/L (6-50); Albumin Level 3.5 g/dL (3.5-5.1); Alkaline Phosphatase 75 U/L (38-126); Anion Gap 6 mmol/L (8-16); Aspartate Amino Transferase 22 U/L (17-59); Bilirubin,Total 0.2 mg/dL (0.2-1.3); Blood Urea Nitrogen 13 mg/dL (9-20); Calcium 8.5 mg/dL (8.4-10.2); Carbon Dioxide 26 mmol/L (22-30); Chloride 106 mmol/L (98-107); Estimated CRCL calculation 44 ml/min; Estimated Glomerular Filt Rate > 60; Glucose 97 mg/dL (65-110); Magnesium 1.9 mg/dL (1.6-2.3); Potassium 3.4 mmol/L (3.4-5.0); Sodium 138 mmol/L (137-145)
--- NOTE | 2022-07-25 09:45 | P.PNIM_ITS ---
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 - Osteonecrosis, unspecified Status: Acute Assessment and Plan: * CT of the neck shows lytic and sclerotic pattern of the mandible which reflects metastatic disease or osteonecrosis, worsened widespread sclerotic lesions in the bone consistent with metastatic disease * ENT consulted * Clindamycin IV initiated * WBCs 5.6 * Continue trend labs * Trend left face for response to antibiotics (2) Occlusion of vertebral artery: Code(s): I65.09 - Occlusion and stenosis of unspecified vertebral artery Status: Acute Assessment and Plan: * CT of the neck shows occlusion of the vertebral artery * ED consulted was u Neurology who stated the patient does not need any intervention at this time * Patient asymptomatic * Trend neurological status * Neuro consulted (3) Osteomyelitis: Code(s): M86.9 - Osteomyelitis, unspecified Status: Acute Assessment and Plan: * Concerns for osteomyelitis on CT * ENT recommending patient be seen by an oral surgeon * Continue IV clindamycin for now * Trend labs * Adjust therapy as indicated (4) Osteolytic lesion due to metastasis: Code(s): C79.51 - Secondary malignant neoplasm of bone Status: Acute Assessment and Plan: * CT indicates metastasis * Oncology consulted * Bone scan ordered * Biopsy probably to follow * hold abiraterone for now * PSA 30.3 * Await recommendations from Oncology (5) Anemia: Code(s): D64.9 - Anemia, unspecified Status: Acute Assessment and Plan: * H&H stable at 9.9/28.8 * Anemia labs iron 67, TIBC 233,% saturation 29, transferrin 167, ferritin 123, B12 greater than a 1000, folate 5 * Supplement not indicated at this time * Trend H&H * Adjust therapy as indicated * Transfuse of less than 7 Time Spent With Patient Time with patient: Greater than 35 minutes Subjective Date/time seen: 07/25/22944 Interval history: 07/25/22944 Patient is ready to go however explained to him that we are still trying to get a couple test today. Also will follow-up with Dr. Salguero about possibly getting him in sooner. Currently patient denies any chest pain, shortness a breath, nausea, vomiting, diarrhea, constipation, weakness fatigue. He does still have some jaw pain however he rates it 1-2 out of 10. 07/24/22 1030 Patient was lying in bed. Patient asked if his family could interpret for him. His daughter did interpret for him. He did state that he is having pain about every 7 minutes and it just radiates up to his ear. He denies any current chest pain, nausea, vomiting, shortness of breath, weakness or fatigue. He does see Dr. Salguero at [facility] for his cancer treatment currently. I did explain to him that I think that this might be metastatic disease as the CT reads mostly metastatic disease. Still awaiting ENT at this time. According to his daughter the patient stated that he had thoughts this might be the cancer spreading. Currently patient is comfortable family was updated and all questions were answered. 07/23/22? 0998 Patient is an 82-year-old speaking male with a past medical history of anemia, hypercholesteremia, prostate cancer who presented to the ED with complaints of swollen left cheek for the last 5 days.? Patient stated that he has not really h
--- NOTE | 2022-07-25 09:45 | PM.IMPN ---
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 - Osteonecrosis, unspecified Status: Acute Assessment and Plan: CT of the neck shows lytic and sclerotic pattern of the mandible which reflects metastatic disease or osteonecrosis, worsened widespread sclerotic lesions in the bone consistent with metastatic disease ENT consulted Clindamycin IV initiated WBCs 5.6 Continue trend labs Trend left face for response to antibiotics (2) Occlusion of vertebral artery: Code(s): I65.09 - Occlusion and stenosis of unspecified vertebral artery Status: Acute Assessment and Plan: CT of the neck shows occlusion of the vertebral artery ED consulted was slu Neurology who stated the patient does not need any intervention at this time Patient asymptomatic Trend neurological status Neuro consulted (3) Osteomyelitis: Code(s): M86.9 - Osteomyelitis, unspecified Status: Acute Assessment and Plan: Concerns for osteomyelitis on CT ENT recommending patient be seen by an oral surgeon Continue IV clindamycin for now Trend labs Adjust therapy as indicated (4) Osteolytic lesion due to metastasis: Code(s): C79.51 - Secondary malignant neoplasm of bone Status: Acute Assessment and Plan: CT indicates metastasis Oncology consulted Bone scan ordered Biopsy probably to follow hold abiraterone for now PSA 30.3 Await recommendations from Oncology (5) Anemia: Code(s): D64.9 - Anemia, unspecified Status: Acute Assessment and Plan: H&H stable at 9.9/28.8 Anemia labs iron 67, TIBC 233,% saturation 29, transferrin 167, ferritin 123, B12 greater than a 1000, folate 5 Supplement not indicated at this time Trend H&H Adjust therapy as indicated Transfuse of less than 7 Time Spent With Patient Time with patient: Greater than 35 minutes Subjective Date/time seen: 07/25/22944 Interval history: 07/25/22944 Patient is ready to go however explained to him that we are still trying to get a couple test today. Also will follow-up with Dr. Salguero about possibly getting him in sooner. Currently patient denies any chest pain, shortness a breath, nausea, vomiting, diarrhea, constipation, weakness fatigue. He does still have some jaw pain however he rates it 1-2 out of 10. 07/24/22 1030 Patient was lying in bed. Patient asked if his family could interpret for him. His daughter did interpret for him. He did state that he is having pain about every 7 minutes and it just radiates up to his ear. He denies any current chest pain, nausea, vomiting, shortness of breath, weakness or fatigue. He does see Dr. Salguero at [facility] for his cancer treatment currently. I did explain to him that I think that this might be metastatic disease as the CT reads mostly metastatic disease. Still awaiting ENT at this time. According to his daughter the patient stated that he had thoughts this might be the cancer spreading. Currently patient is comfortable family was updated and all questions were answered. 07/23/22? 1530 Patient is an 82-year-old speaking male with a past medical history of anemia, hypercholesteremia, prostate cancer who presented to the ED with complaints of swollen left cheek for the last 5 days.? Patient stated that he has not really had much pain however he felt like he was having an infection flare up.? He stated that he has had multiple episodes of this in the past and recently he went to the dentist and got a deep cleaning.? At that time they also did some did to work and he thought it might have been infection flare up from that.? He does state that he has pain however it is very little and at last for couple seconds and goes away.? He denies any chest pain, shortness a breath, nausea, vomiting, diarrhea, constipation, lightheadedness, we
[2022-07-25] MEDS: predniSONE 20 MG TABLET PO (10:25)
[2022-07-25] MEDS: TAMSULOSIN HCL 0.4 MG CAPSULE PO (10:25)
[2022-07-25] MEDS: CLOPIDOGREL BISULFATE 75 MG TABLET PO (10:25)
[2022-07-25] MEDS: MIRABEGRON 50 MG ER TABLET PO (10:25)
[2022-07-25] MEDS: ENOXAPARIN 40 MG/0.4 ML SYRINGE SUB-Q (10:26)
[2022-07-25] MEDS: FLUTICASONE PROPIONATE 0.05% NA SPR 16 GM BTL (*BKC) 2 SPRAY NASAL (10:26)
[2022-07-25 10:30] VITALS: PULSE 68; RESP 18; O2SAT 96
[2022-07-25 14:00] VITALS: BP 143/71; PULSE 80; RESP 12; TEMP 36.2; O2SAT 98
[2022-07-25 22:45] VITALS: BP 144/67; PULSE 65; RESP 18; TEMP 36.1; O2SAT 97
[2022-07-26 06:07] LABS: Basophils Percent Auto 0.4 % (0.2-1.2); Eosinophils Percent Auto 0.6 % (0-4.4); Hematocrit 28.4 % (42.0-52.0); Hemoglobin 9.7 g/dL (14.0-18.0); Immature Granulocyte Absolute 0.03 K/mm3 (0.00-0.031); Immature Granulocyte Percent A 0.6 % (0-0.5); Lymphocytes Absolute Auto 2.29 K/mm3 (0.9-3.2); Lymphocytes Percent Auto 42.5 % (18.3-44.2); Mean Corpuscular HGB Conc 34.2 g/dl (32-36); Mean Corpuscular Hemoglobin 32.6 pg (26-34); Mean Corpuscular Volume 95.3 fl (80-100); Mean Platelet Volume 9.2 fl (7.4-10.4); Monocytes Absolute Auto 0.4 K/mm3 (0.1-0.6); Monocytes Percent Auto 7.8 % (2.6-8.5); Neutrophils Absolute Auto 2.6 K/mm3 (1.3-6.7); Neutrophils Percent Auto 48.1 % (45.5-73.1); Platelet Count Result 235 k/mm3 (150-375); Red Blood Count 2.98 M/mm3 (4.6-6.20); Red Cell Distribution Width 13.2 % (11.5-14.5); White Blood Count 5.4 K/mm3 (4.5-10.0)
[2022-07-26 06:18] LABS: Alanine Aminotransferase 12 U/L (6-50); Albumin Level 3.5 g/dL (3.5-5.1); Alkaline Phosphatase 66 U/L (38-126); Anion Gap 9 mmol/L (8-16); Aspartate Amino Transferase 23 U/L (17-59); Bilirubin,Total 0.2 mg/dL (0.2-1.3); Blood Urea Nitrogen 13 mg/dL (9-20); Calcium 8.3 mg/dL (8.4-10.2); Carbon Dioxide 24 mmol/L (22-30); Chloride 107 mmol/L (98-107); Estimated CRCL calculation 37 ml/min; Estimated Glomerular Filt Rate > 60; Glucose 91 mg/dL (65-110); Potassium 3.3 mmol/L (3.4-5.0); Sodium 140 mmol/L (137-145)
[2022-07-26] MEDS: CLINDAMYCIN 600 MG/D5W 50 ML 600 MG/50 ML PIGGYBACK 100 MG IVPB (06:19)
[2022-07-26 07:03] VITALS: BP 155/69; PULSE 60; RESP 18; TEMP 36.3; O2SAT 96
[2022-07-26] MEDS: FLUTICASONE PROPIONATE 0.05% NA SPR 16 GM BTL (*BKC) 2 SPRAY NASAL (08:57)
[2022-07-26] MEDS: MIRABEGRON 50 MG ER TABLET PO (08:57)
[2022-07-26] MEDS: CLOPIDOGREL BISULFATE 75 MG TABLET PO (08:58)
[2022-07-26] MEDS: TAMSULOSIN HCL 0.4 MG CAPSULE PO (08:58)
[2022-07-26] MEDS: predniSONE 20 MG TABLET PO (08:58)
[2022-07-26] MEDS: ENOXAPARIN 40 MG/0.4 ML SYRINGE SUB-Q (08:58)
--- NOTE | 2022-07-26 13:30 | P.DS_ITS ---
DS: Admitting Diagnosis Discharge Date 07/26/22 1330 Admitting Diagnosis Metastatic cancer of the mandible, spine, and femur DS: Discharge Diagnosis Discharge Diagnosis (1) Osteonecrosis of jaw: Code(s): M87.9 - Osteonecrosis, unspecified Status: Acute Assessment and Plan: * CT of the neck shows lytic and sclerotic pattern of the mandible which reflects metastatic disease or osteonecrosis, worsened widespread sclerotic lesions in the bone consistent with metastatic disease * ENT consulted * Clindamycin IV initiated * WBCs 5.6 * Continue trend labs * Trend left face for response to antibiotics (2) Occlusion of vertebral artery: Code(s): I65.09 - Occlusion and stenosis of unspecified vertebral artery Status: Acute Assessment and Plan: * CT of the neck shows occlusion of the vertebral artery * ED consulted was u Neurology who stated the patient does not need any intervention at this time * Patient asymptomatic * Trend neurological status * Neuro consulted (3) Osteomyelitis: Code(s): M86.9 - Osteomyelitis, unspecified Status: Acute Assessment and Plan: * Concerns for osteomyelitis on CT * ENT recommending patient be seen by an oral surgeon * Continue IV clindamycin for now * Trend labs * Adjust therapy as indicated (4) Osteolytic lesion due to metastasis: Code(s): C79.51 - Secondary malignant neoplasm of bone Status: Acute Assessment and Plan: * CT indicates metastasis * Oncology consulted * Bone scan showed consistent lesions in the femur, spine and mandible * Biopsy will be up to Dr. Salguero * hold abiraterone for now * PSA 30.3 * Await recommendations from Oncology (5) Anemia: Code(s): D64.9 - Anemia, unspecified Status: Acute Assessment and Plan: * H&H stable at 9.7/28.4 * Anemia labs iron 67, TIBC 233,% saturation 29, transferrin 167, ferritin 123, B12 greater than a 1000, folate 5 * Supplement not indicated at this time * Trend H&H * Adjust therapy as indicated * Transfuse of less than 7 DS: Summary Hospital Course Hospital Course: patient is a 82-year-old male with a past medical history of anemia, hypercholesteremia, prostate cancer who presented the ED with complaints of swollen left cheek the last 5 days. It was noted the patient had went to the dentist and had a deep cleaning done however patient has been very swollen with some pain. It was noted on CT that it could be osteo necrosis/osteo myelitis/ metastatic disease. Did consult ENT who is recommending the patient see an oral surgeon. Oncology has also seen the patient and ordered a bone scan which did confirm metastatic bone disease. I did talk to his oncologist who stated that they were aware of his condition and is recommending that he see an oral surgeon. Currently patient is feeling better he would like to go home. Labs and vital signs remained stable. Patient denies any chest pain, shortness a breath, nausea, vomiting, diarrhea, constipation, weakness or fatigue. Status at Discharge Functional status at discharge: independent ambulation Overall status at discharge: patient is progressing back to baseline Time Spent with Patient Time attestation: Total time spent providing and/or coordinating discharge services: 38 minutes Time spent: Greater than 30 minutes Exam Const: General: cooperative, no acute distres
--- NOTE | 2022-07-26 13:30 | PM.DS ---
DS: Admitting Diagnosis Discharge Date 07/26/22 1330 Admitting Diagnosis Metastatic cancer of the mandible, spine, and femur DS: Discharge Diagnosis Discharge Diagnosis (1) Osteonecrosis of jaw: Code(s): M87.9 - Osteonecrosis, unspecified Status: Acute Assessment and Plan: CT of the neck shows lytic and sclerotic pattern of the mandible which reflects metastatic disease or osteonecrosis, worsened widespread sclerotic lesions in the bone consistent with metastatic disease ENT consulted Clindamycin IV initiated WBCs 5.6 Continue trend labs Trend left face for response to antibiotics (2) Occlusion of vertebral artery: Code(s): I65.09 - Occlusion and stenosis of unspecified vertebral artery Status: Acute Assessment and Plan: CT of the neck shows occlusion of the vertebral artery ED consulted was slu Neurology who stated the patient does not need any intervention at this time Patient asymptomatic Trend neurological status Neuro consulted (3) Osteomyelitis: Code(s): M86.9 - Osteomyelitis, unspecified Status: Acute Assessment and Plan: Concerns for osteomyelitis on CT ENT recommending patient be seen by an oral surgeon Continue IV clindamycin for now Trend labs Adjust therapy as indicated (4) Osteolytic lesion due to metastasis: Code(s): C79.51 - Secondary malignant neoplasm of bone Status: Acute Assessment and Plan: CT indicates metastasis Oncology consulted Bone scan showed consistent lesions in the femur, spine and mandible Biopsy will be up to Dr. Salguero hold abiraterone for now PSA 30.3 Await recommendations from Oncology (5) Anemia: Code(s): D64.9 - Anemia, unspecified Status: Acute Assessment and Plan: H&H stable at 9.7/28.4 Anemia labs iron 67, TIBC 233,% saturation 29, transferrin 167, ferritin 123, B12 greater than a 1000, folate 5 Supplement not indicated at this time Trend H&H Adjust therapy as indicated Transfuse of less than 7 DS: Summary Hospital Course Hospital Course: patient is a 82-year-old male with a past medical history of anemia, hypercholesteremia, prostate cancer who presented the ED with complaints of swollen left cheek the last 5 days. It was noted the patient had went to the dentist and had a deep cleaning done however patient has been very swollen with some pain. It was noted on CT that it could be osteo necrosis/osteo myelitis/ metastatic disease. Did consult ENT who is recommending the patient see an oral surgeon. Oncology has also seen the patient and ordered a bone scan which did confirm metastatic bone disease. I did talk to his oncologist who stated that they were aware of his condition and is recommending that he see an oral surgeon. Currently patient is feeling better he would like to go home. Labs and vital signs remained stable. Patient denies any chest pain, shortness a breath, nausea, vomiting, diarrhea, constipation, weakness or fatigue. Status at Discharge Functional status at discharge: independent ambulation Overall status at discharge: patient is progressing back to baseline Time Spent with Patient Time attestation: Total time spent providing and/or coordinating discharge services: 38 minutes Time spent: Greater than 30 minutes Exam Const: General: cooperative, no acute distress, well developed, alert, awake, uncomfortable and well nourished Nutritional Appearance: well nourished Orientation/consciousness: patient oriented x3 Limitations: no limitations HENMT: Head: normal to inspection Ears: hearing grossly normal bilaterally Face/Nose/Sinus: Normal external nose present Mouth: Yes Normal oral and palatal mucosa present, Yes lip normal and Yes tongue normal Teeth and gingiva: abnormal tooth and associated gingiva and poor dentition Other: Mandible can be viewed from inside the mout
[2022-07-26 14:00] VITALS: BP 156/73; PULSE 73; RESP 16; TEMP 36.6; O2SAT 99
== END 2022-07-26 14:50 | disposition home or self-care (01) | DRG 543 ==
LOC: ANHED 12:51 → ANH3MEDSUR 15:08 → ANH2MED 16:21
PROVIDERS: Internal Medicine Hematology & Oncology; Admitting Provider Student in an Organized Health Care Education/Training Program; Emergency Provider Emergency Medicine; PCP Internal Medicine Infectious Disease; Visit Provider Nurse Practitioner
DX: C79.51 Secondary malignant neoplasm of bone (principal); M86.9 Osteomyelitis, unspecified; M87.88 Other osteonecrosis, other site; E78.00 Pure hypercholesterolemia, unspecified; I65.01 Occlusion and stenosis of right vertebral artery; D64.9 Anemia, unspecified; Z20.822 Contact with and (suspected) exposure to COVID-19; Z79.818 Long term (current) use of other agents affecting estrogen receptors and estrogen levels; Z79.899 Other long term (current) drug therapy; Z85.46 Personal history of malignant neoplasm of prostate
CPT/HCPCS: 36415; 70491; 70553; 78306; 80048; 80053; 82607; 82728; 82746; 83540; 83550; 83735; 84153; 84466; 85025; 85027; 85652; 86140; 86334; 96365; 96372; 99285; A9270; A9561; A9577; C9803; G0378; J1650; J7512; Q9967; U0003; U0005

== ENCOUNTER 2024-09-06 12:16 | Inpatient (IN) | payer MEDICARE, SELFPAY ==
[2024-09-06] VITALS (41 sets, daily range): BP systolic 95–130; BP diastolic 51–79; PULSE 53–93; RESP 11–29; TEMP 36.4–37; O2SAT 93–99
--- NOTE | ~2024-09-06 | XR_ITS ---
EXAMINATION: XR barium swallow modified DATE: 09/09/2024 08:48 INDICATION: Cerebrovascular accident. TECHNIQUE: The patient was given barium-containing material of multiple consistencies to swallow by t amina speech pathologist while I performed fluoroscopy. Fluoroscopy exposure time was 1.9 minutes. The n umber of fluoroscopy images saved to the PACS was 1. Dose-area product was 1.901 Gy-cm^2. FINDINGS: There is slow oral transit. There is reduced tongue base retraction. IMPRESSION: 1. No laryngeal penetration or aspiration. 2. Please refer to the speech therapy report for recommendations. Reviewed, dictated and finalized at location A. THESIA ASSISTANT
--- NOTE | ~2024-09-06 | CT_ITS ---
EXAMINATION: CT chest abdomen pelvis w con DATE: 09/06/2024 17:29 INDICATION: AMS, generalized weakness, ABD distension h/o prostate cancer. TECHNIQUE: Computed tomography (CT) of the chest, abdomen, and pelvis was performed with 100 mL Omnip aque-350 intravenous contrast. Automated exposure control and iterative reconstruction technique were employed. The dose-length product was 798.74 mGy-cm. COMPARISON: CT cap 09/07/2013 FINDINGS: CHEST: Thoracic aorta: No significant dilation. No dissection. Mild arch calcification. Lung parenchyma and airways: Dependent atelectasis. Lungs and airways are otherwise clear. Thoracic inlet, axillae and chest wall: No thyroid or soft tissue mass. No axillary lymphadenopathy. Mediastinum: No mass or lymphadenopathy. Dilated central pulmonary arteries as can be seen with pulmo nary arterial hypertension. Enlarged right bronchial and subcarinal nodes. Heart and pericardium: Mild cardiomegaly. No pericardial effusion. Coronary artery calcifications: Mild. Pleura: Small left and moderate right pleural fluid collections. Thoracic bones: No acute osseous finding in the chest. Multifocal sclerotic lesions in the bones. ABDOMEN/PELVIS: Liver: Normal. Biliary/Gallbladder: Gallbladder is normal. No bile duct dilation. Pancreas: No mass or duct dilation. Spleen: Normal. Adrenals:No mass. Kidneys: No suspicious mass, obstructing stone, or hydronephrosis. Left renal atrophy. GI tract: No small or large bowel dilation. Normal appendix. Diverticulosis without diverticulitis. Mesentery/Peritoneum: No ascites, mass, or free air. Retroperitoneum: No mass Atherosclerotic abdominal aortic and/or arterial calcifications. Pelvis: Distended urinary bladder. Prostatomegaly. Soft Tissues: Soft tissues and body wall unremarkable. Abdominopelvic bones: No acute osseous finding in the abdomen/pelvis. Severe lumbar scoliosis, multi level degenerative disc disease, multilevel facet arthropathy. Multifocal sclerotic lesions in the girma nydia. IMPRESSION: Moderate right and small left pleural effusions. Mediastinal lymphadenopathy. Chronic bone lesions concerning for metastatic disease. Reviewed, dictated and finalized at location K. ER CASER
--- NOTE | ~2024-09-06 | XR_ITS ---
EXAMINATION: [id number]_[id number] DATE: 09/10/2024 15:51 INDICATION: Right pleural effusion status post thoracentesis. TECHNIQUE: A single frontal view of the chest was obtained. COMPARISON: Chest CT 09/06/2024, chest single view at 2:01 PM. FINDINGS: There are airspace opacities in the perihilar regions and lower lung zones. No pleural effu marion or pneumothorax. There is pleural thickening at right lung apex. The heart size is normal. There are scattered sclerotic lesions of bone. IMPRESSION: 1. Airspace opacities in the perihilar regions and lower lung zones, consistent with atelectasis vers us pneumonia. 2. Pleural thickening at right lung apex, consistent with metastatic disease. 3. Sclerotic lesions of bone, consistent with metastatic disease. Reviewed, dictated and finalized at location A. LS SQUAD POLICE OFFICER IMPRESSION: 1. Airspace opacities in the perihilar regions and lower lung zones, consistent with atelectasis versus pneumonia. 2. Pleural thickening at right lung apex, consistent with metastatic disease. 3. Sclerotic lesions of bone, consistent with metastatic disease.
--- NOTE | ~2024-09-06 | XR_ITS ---
EXAMINATION: XR chest 1V portable DATE: 09/11/2024 11:35 INDICATION: Fever. TECHNIQUE: A single frontal view of the chest was obtained. COMPARISON: Chest single view 09/10/2024, chest CT 09/10/2024 FINDINGS: There are airspace opacities in the mid and lower lung zones. There is a small right pleura l effusion. No pneumothorax. The heart size is normal. There are scattered sclerotic lesions of bone. IMPRESSION: 1. Worsened airspace opacities in the mid and lower lung zones, consistent with atelectasis versus pn eumonia. 2. Worsened small right pleural effusion. 3. Sclerotic lesions of bone, consistent with metastatic disease. Reviewed, dictated and finalized at location A. ATION SPEC IMPRESSION: 1. Worsened airspace opacities in the mid and lower lung zones, consistent with atelectasis versus pneumonia. 2. Worsened small right pleural effusion. 3. Sclerotic lesions of bone, consistent with metastatic disease.
--- NOTE | ~2024-09-06 | US_ITS ---
EXAMINATION: US thoracentesis DATE: 09/10/2024 15:57 INDICATION: pleural effusion TECHNIQUE: Consent was provided by a family member. The skin was prepped and draped in sterile fashio n. 1% lidocaine was used for local anesthesia. Under ultrasound guidance, a 5 Fr catheter with trocha r was advanced into the right pleural effusion. Fluid was aspirated. The catheter was removed, and a dressing was applied. There were no immediate complications. FINDINGS: Ultrasound images demonstrate a right pleural effusion and the catheter within the fluid. IMPRESSION: 1. Successful ultrasound-guided thoracentesis yielding 1000 mL of clear, yellow fluid. Reviewed, dictated and finalized at location A. ROLL OPERATOR IMPRESSION: 1. Successful ultrasound-guided thoracentesis yielding 1000 mL of clear, yello w fluid.
--- NOTE | ~2024-09-06 | US_ITS ---
EXAMINATION: US renal BI DATE: 09/11/2024 16:00 INDICATION: Acute kidney failure. TECHNIQUE: Multiple ultrasound grayscale images of the kidneys were obtained. COMPARISON: CT abdomen and pelvis 09/06/2024 FINDINGS: The right kidney measures 9.1 x 5.3 x 5.9 cm. The right kidney demonstrates normal parenchymal echoge nicity. There is no hydronephrosis of the right kidney. There is severe atrophy of left kidney, whic h is not well visualized. The bladder is decompressed by a Martinez catheter. IMPRESSION: 1. Normal right kidney. 2. Severe atrophy of left kidney. Reviewed, dictated and finalized at location A. KING CRANE ENGINE OPERATOR
--- NOTE | ~2024-09-06 | CT_ITS ---
EXAMINATION: CT brain wo con DATE: 09/06/2024 17:29 INDICATION: AMS . TECHNIQUE: Computed tomography (CT) of the head was performed without intravenous contrast. The mA wa s adjusted according to patient size. Iterative reconstruction technique was employed. The dose-lengt h product was 605.33 mGy-cm. COMPARISON: None. FINDINGS: No acute intracranial hemorrhage or extra-axial fluid collection. No hydrocephalus, mass, or herniation. No acute ischemic infarct. Unremarkable dural venous sinus attenuation. No acute osseous abnormality. Left mastoid fluid, bilateral mastoid and sphenoid mucosal thickening, the remaining aerated spaces a re clear. Mild atrophy and chronic white matter change. Atherosclerotic intracranial calcification. Old left th alamic lacunar infarct. IMPRESSION: No acute intracranial process. Reviewed, dictated and finalized at location K. SALESPERSON
--- NOTE | ~2024-09-06 | XR_ITS ---
EXAMINATION: XR abdomen/kub 1V DATE: 09/10/2024 13:31 INDICATION: Abdominal distention. TECHNIQUE: A supine view of the abdomen on 2 radiographs was obtained. COMPARISON: CT abdomen and pelvis 09/06/2024 FINDINGS: There are no dilated loops of bowel. There is a moderate volume of stool in the colon. Ther e are scattered sclerotic lesions of bone. IMPRESSION: 1. Nonobstructive bowel gas pattern. 2. Sclerotic lesions of bone, consistent with metastatic disease. Reviewed, dictated and finalized at location A. LEASING MANAGER
--- NOTE | ~2024-09-06 | XR_ITS ---
EXAMINATION: XR_FLGTUBINS_CR DATE: 09/11/2024 14:16 INDICATION: Altered mental status. TECHNIQUE: I placed a nasogastric tube under fluoroscopic guidance. The number of images was 1. The f luoroscopy exposure time was 0.7 minutes. COMPARISON: CT abdomen and pelvis 09/06/2024 FINDINGS: The nasogastric tube tip is in the stomach. IMPRESSION: 1. Fluoroscopy guided nasogastric tube placement with tip in the stomach. Reviewed, dictated and finalized at location A. CIATE DIRECTOR OF DEVELOPMENT
--- NOTE | ~2024-09-06 | XR_ITS ---
EXAMINATION: XR chest 1V portable DATE: 09/10/2024 14:04 INDICATION: Increased oxygen requirement. Altered mental status. TECHNIQUE: A single frontal view of the chest was obtained. COMPARISON: Chest CT 09/06/2024 FINDINGS: There is a moderate-sized right pleural effusion. There is nodular pleural thickening on th e right. There are airspace opacities in right lung and at left lung base. No pneumothorax. The heart size is normal. There are scattered sclerotic lesions of bone. IMPRESSION: 1. Moderate-sized right pleural effusion with nodular pleural thickening, consistent with metastatic disease. 2. Airspace opacities in right lung and at left lung base, consistent with atelectasis versus pneumon ia. 3. Sclerotic lesions of bone, consistent with metastatic disease. Reviewed, dictated and finalized at location A. TOR [employer] H[employer]ORY M[employer]UM IMPRESSION: 1. Moderate-sized right pleural effusion with nodular pleural thickening, consi stent with metastatic disease. 2. Airspace opacities in right lung and at left lung base, consistent with atel ectasis versus pneumonia. 3. Sclerotic lesions of bone, consistent with metastatic disease.
--- NOTE | 2024-09-06 14:53 | ECG_ITS ---
Test Date: 2024-09-06 15:07:28 Measurements Intervals Saxe Rate: 90 P: 60 HI: 158 QRS: 34 QRSD: 89 T: 81 QT: 322 QTc: 395 Interpretive Statements SINUS RHYTHM WITH FREQUENT SUPRAVENTRICULAR PREMATURE COMPLEXES LOW QRS VOLTAGE IN EXTREMITY LEADS [QRS DEFLECTION < 0.5 mV IN LIMB LEADS] NONSPECIFIC T-WAVE ABNORMALITY ABNORMAL ECG Electronically Signed On 09-07-2024 08:55:04 [employer] by Gerson Peraza M.D.
--- NOTE | 2024-09-06 15:37 | ED_ITS ---
HPI - Weakness General Chief complaint: Weakness Stated complaint: weakness, CA pt Time Seen by Provider: 09/06/24 14:58 History of Present Illness HPI Narrative: 84-year-old male with history of hyperlipidemia, anemia, metastatic prostate cancer to bone presents to the emergency department with daughters at bedside for lethargy and altered mental status and generalized weakness for the past 4 days. Patient's daughters assist with history. States patient lives at home with his but has become more generally weak and unable to care for himself. States he normally ambulates with a walker but over the past day has been unable to get up without several people assisting. He is reportedly much more sleepy than normal. He is not complaining of any pain. He is reporting a cough but denies chest pain, shortness of breath, fever, N/V/ D, abdominal pain, dysuria. His oncologist is at [facility]. He is currently on chemo. no radiation. patient's daughter at bedside states that the patient's blood counts have been low since he was diagnosed with prostate cancer about 10 years ago. He has had to have several blood transfusions. Unknown cause of anemia. Denies melena and hematochezia. Related Data Home Medications Medication Instructions Recorded Confirmed mirabegron 50 mg tablet,extended 50 mg PO DAILY 07/23/22 09/07/24 release 24 hr (Myrbetriq) tamsulosin 0.4 mg capsule 0.4 mg PO DAILY 07/23/22 09/07/24 bedoyecta 1 tab-cap PO DAILY 09/07/24 09/07/24 bicalutamide 50 mg tablet 150 mg PO DAILY 09/07/24 09/07/24 calcitriol 0.5 mcg capsule 0.5 mcg PO DAILY 09/07/24 09/07/24 calcium 200 mg (as 1 tablet PO DAILY 09/07/24 09/07/24 citrate)-mins-D3 200 unit-K2 16 mcg-silicon tablet (ADVANCED Calcium) ciprofloxacin HCl 0.3 % eye drops 1 drp RIGHT EYE QID 09/07/24 09/07/24 dexamethasone 4 mg tablet 4 mg PO DAILY 09/07/24 09/07/24 docusate sodium 100 mg capsule 100 mg PO DAILY 09/07/24 09/07/24 famotidine 20 mg tablet 20 mg PO BID 09/07/24 09/07/24 ferrous sulfate 325 mg (65 mg 325 mg PO DAILY 09/07/24 09/07/24 iron) tablet (FeroSul) furosemide 20 mg tablet 20 mg PO USEASDIRECTD 09/07/24 09/07/24 meclizine 25 mg tablet 25 mg PO TID PRN Dizziness 09/07/24 09/07/24 wzecawkj-hltjcwthf-lcwanyuzp 3.5 3 drp RIGHT EAR TID 09/07/24 09/07/24 mg-10,000 unit/mL-1 % ear drops,susp omega-3 fatty acids 1,000 mg PO DAILY 09/07/24 09/07/24 paroxetine HCl 10 mg tablet 10 mg PO DAILY 09/07/24 09/07/24 tramadol 50 mg tablet 50 mg PO Q6H PRN Pain 09/07/24 09/07/24 Allergies Allergy/AdvReac Type Severity Reaction Status Date / Time atorvastatin AdvReac Unknown Unknown Verified 09/06/24 15:15 Review of Systems Review of Systems: All systems reviewed & are unremarkable except as noted in HPI and below PMFSH Past Medical History Medical History Anemia Hypercholesteremia Prostate cancer Surgical History Surgical History No significant past surgical history Family History Family History Other Unknown family medical history Social History Social History Social History: Patient lives at home with his Chitra and has been to her for 50 years. They do have 1 dog and 6 children. He wishes to be a full code at this time. Smoking status: Never smoker Alcohol intake: never Substance use: never Do You Feel Safe in your Home?: Yes Lack of Transportation: No Lack of Food: Never True Current Housing: I Have Housing Concerned About Future Housing: No Difficulty Paying Gas/Electric Bills: No Difficulty Paying for Meds: No Currently Unemployed: No Education: Grade School Difficulty w/ Childcare or Family Care: No Living arrangements: with family Occupation/Education: retired Gender identity (if verbalized by the patient): Male Sexual Orientation (if Verbalized by the Patient): Straight or Heterosexual Spiritual care concerns: No Exam Narrative: GENERAL:Ill-appearing, lethargic, lying in exam bed, NAD HEAD: Normocephalic, atraumatic. EYES: PERRLA and EOMI. ENT: Nares clear, no rhinorrhea or epistaxis. Mucous membranes dry NECK: Supple. CHEST: no respiratory distress. absent lung sounds in the lower lung read HEART: Regular rate and rhythm. No murmur heard. Normal peripheral pulses. ABDOMEN: Soft, nontender, nondistended, normal active bowel sounds. Rectal exam chaperoned by nisreen Valentine which shows normal external anus, no melena or hematochezia, Hemoccult is negative EXTREMITIES: Normal range of motion. No edema. SKIN: Warm, dry, no rash. NEURO: No focal deficits. Alert and oriented x1 Course Vital Signs Vital signs: Vital Signs Temperature 98.6 F 09/06/24 12:43 Pulse Rate 53 L 09/06/24 12:43 Respiratory Rate 18 09/06/24 12:43 Blood Pressure 102/51 L 09/06/24 12:43 Pulse Oximetry 95 09/06/24 12:43 Temperature 97.6 F 09/06/24 20:43 Pulse Rate 75 09/07/24 00:01 Respiratory Rate 13 09/07/24 00:01 Blood Pressure 112/70 09/07/24 00:01 Pulse Oximetry 94 09/07/24 00:01 Oxygen Delivery Room Air 09/06/24 15:13 MDM - Weakness MDM Narrative Medical decision making narrative: 84-year-old male with known metastatic prostate cancer presents to the ED with daughters at bedside for generalized weakness, somnolence, altered mental status. triage vitals remarkable for mild bradycardia 53 and soft blood pressure 102/51. Upon my at the time of my evaluation patient's vital signs have normalized. He is afebrile and lethargic on exam. He is A&O x1 which is new per family at bedside. Patient's daughter at bedside is also POA. Discuss goals of care and code status today. They are requesting that the patient is a full code and to do a full workup. Mucous membranes are dry, fluids initiated. Lab work shows no leukocytosis. Hemoglobin 7.5, MCV elevated at 109. Most recent hemoglobin in 2021 was 9.7. Platelets are also low at 101. His ABG reveals a low hemoglobin at 7. Given these findings and soft BP, will provide a unit of blood given this may be contributing to his generalized weakness and soft blood pressures. chemistries with a BUN of 26 and a creatinine of 1. Lactic acid 1.2. CK normal at 150. TSH within normal limits. EKG shows sinus rhythm with frequent supraventricular premature complexes, no ischemic changes. CT brain shows no acute intracranial process. CT chest abdomen pelvis shows a moderate right and small left pleural effusions. mediastinal lymphadenopathy and chronic bone lesions concerning for metastatic disease. Patient family updated on workup. I suspect his lethargy and generalized weakness was secondary to dehydration and low hemoglobin. He is much more awake and alert at the time of my re-evaluation after IV fluids and a unit of blood transfusion. BP has improved. Attempted to ambulate the patient but unfortun ately he still feels too weak. Family does not feel he can care for himself at home. Plan to admit to the hospitalist. Discussed with hospitalist, Dr. Marsh, who agrees to admission. Lab Data 09/06/24 15:39 09/06/24 15:39 Labs: Lab Results 09/06/24 09/06/24 09/06/24 Range/Units 15:39 16:35 20:20 WBC 5.0 (4.5-10.0) K/mm3 RBC 2.01 L (4.6-6.20) M/mm3 Hgb 7.5 L (14.0-18.0) g/dL Hct 22.0 L (42.0-52.0) % MCV 109.5 H (80-100) fl MCH 37.3 H (26-34) pg MCHC 34.1 (32-36) g/dl RDW 22.1 H (11.5-14.5) % Plt Count 101 L D (150-375) k/mm3 MPV 9.1 (7.4-10.4) fl Immature Gran % (Auto) 2.4 H (0-0.5) % Neut % (Auto) 74.2 H (45.5-73.1) % Lymph % (Auto) 14.1 L (18.3-44.2) % [place] % (Auto) 8.3 (2.6-8.5) % Eos % (Auto) 0.6 (0-4.4) % Baso % (Auto) 0.4 (0.2-1.2) % Lymph # (Auto) 0.71 L (0.9-3.2) K/mm3 [place] # (Auto) 0.4 (0.1-0.6) K/mm3 Eos # (Auto) 0.0 (0-0.3) K/mm3 Baso # (Auto) 0.0 (0.0-0.1) K/mm3 Abs Immat Gran (auto) 0.12 H (0.00-0.031) K/mm3 Absolute Neuts (auto) 3.7 (1.3-6.7) K/mm3 Absolute Nucleated RBC 0.040 H (0.0-0.012) K/mm3 Nucleated RBC % 0.8 H (0.0-0.2) % Platelet Estimate Slightly decreased (Adequate) % Immature Plt Fraction 1.4 (0.9-11.2) % Anisocytosis 1+ Macrocytosis 1+ (NORMAL) Ovalocytes 1+ Schistocytes None seen PT 14.2 (11.1-14.7) Seconds INR 1.1 APTT 34.3 (22.3-36.8) Seconds Sodium 133 L (137-145) mmol/L Potassium 4.0 (3.4-5.0) mmol/L Chloride 101 (98-107) mmol/L Carbon Dioxide 27 (22-30) mmol/L Anion Gap 5 (4-12) mmol/L BUN 26 H D (9-20) mg/dL Creatinine 1.00 (0.7-1.3) mg/dL Estim Creat Clear Calc Not Reportable Estimated GFR > 60 (59 - ) Glucose 168 H (65-110) mg/dL Lactic Acid 1.2 (0.7-2.0) mmol/L Calcium 8.4 (8.4-10.2) mg/dL Total Bilirubin 0.7 (0.2-1.3) mg/dL AST 41 (17-59) U/L ALT 17 (6-50) U/L Alkaline Phosphatase 57 (38-126) U/L Total Creatine Kinase 150 (55-170) U/L Troponin I 0.013 (0.000-0.034) ng/mL Total Protein 6.0 L (6.3-8.2) g/dL Albumin 3.2 L (3.5-5.1) g/dL TSH 2.090 (0.465-4.680) uIU/mL Urine Color Yellow (Yellow) Urine Appearance Clear (Clear) Urine pH 7.5 (5.0-9.0) Ur Specific [place] 1.042 H (1.001-1.035) Urine Protein 1+ H (Negative) mg/dL Urine Glucose (UA) Negative (Negative) mg/dL Urine Ketones Negative (Negative) mg/dL Ur Blood (Man) Trace (Negative) Urine Nitrate Negative (Negative) Urine Bilirubin Negative (Negative) Urine Urobilinogen 1.0 (<2.0) mg/dL Leukocyte Esterase Rfl Negative (Negative) MAGALIE/UL Urine RBC 6-10 H (0-2) /hpf Urine WBC 0-5 (0-3) /hpf Ur Squamous Epith Cells None seen (Few) /hpf Urine Bacteria None seen /hpf Urine Casts 0-2 Influenza A (RT-PCR) Negative (Negative) Influenza B (RT-PCR) Negative (Negative) RSV (RT-PCR) Negative (Negative) SARS-CoV-2 RNA (RT-PCR) Negative (Negative) Blood Type O Positive Antibody Screen Negative Crossmatch See Detail ABG Data ABG results: 09/06/24 15:55 Puncture Site Right radial ABG pH 7.464 H ABG pCO2 33.5 L ABG pO2 71.4 L ABG PO2/FiO2 Ratio 3.40 ABG HCO3 23.5 ABG O2 Saturation 95.3 ABG O2 Content 9.1 L ABG Base Excess -0.1 A-a Gradient 38.2 Oxyhemoglobin 91.5 Total Hemoglobin 7.0 L* O2 Delivery Device Not Reportable O2 Liters/Min Not Reportable FiO2 21 Discharge Plan Discharge Clinical Impression: Generalized weakness, Anemia, macrocytic Patient Disposition: Still a Patient Condition: Stable
[2024-09-06] MEDS: SODIUM CHLORIDE 0.9% IV 1,000 ML 999 ML IV CONT (15:41)
[2024-09-06 15:48] LABS: Basophils Percent Auto 0.4 % (0.2-1.2); Eosinophils Percent Auto 0.6 % (0-4.4); Hemoglobin 7.5 g/dL (14.0-18.0); Immature Granulocyte Absolute 0.12 K/mm3 (0.00-0.031); Immature Granulocyte Percent A 2.4 % (0-0.5); Immature Platelet Fraction Pct 1.4 % (0.9-11.2); Lymphocytes Absolute Auto 0.71 K/mm3 (0.9-3.2); Lymphocytes Percent Auto 14.1 % (18.3-44.2); Mean Corpuscular HGB Conc 34.1 g/dl (32-36); Mean Corpuscular Hemoglobin 37.3 pg (26-34); Mean Corpuscular Volume 109.5 fl (80-100); Mean Platelet Volume 9.1 fl (7.4-10.4); Monocytes Absolute Auto 0.4 K/mm3 (0.1-0.6); Monocytes Percent Auto 8.3 % (2.6-8.5); Neutrophils Absolute Auto 3.7 K/mm3 (1.3-6.7); Neutrophils Percent Auto 74.2 % (45.5-73.1); Nucleated Red Blood Cells Perc 0.8 % (0.0-0.2); Platelet Count Result 101 k/mm3 (150-375); Red Blood Count 2.01 M/mm3 (4.6-6.20); Red Cell Distribution Width 22.1 % (11.5-14.5)
[2024-09-06 15:55] LABS: Lactic Acid Reflex 1.2 mmol/L (0.7-2.0)
[2024-09-06 15:56] LABS: Alanine Aminotransferase 17 U/L (6-50); Albumin Level 3.2 g/dL (3.5-5.1); Alkaline Phosphatase 57 U/L (38-126); Anion Gap 5 mmol/L (4-12); Aspartate Amino Transferase 41 U/L (17-59); Bilirubin,Total 0.7 mg/dL (0.2-1.3); Blood Urea Nitrogen 26 mg/dL (9-20); Calcium 8.4 mg/dL (8.4-10.2); Carbon Dioxide 27 mmol/L (22-30); Chloride 101 mmol/L (98-107); Creatine Kinase 150 U/L (55-170); Estimated Glomerular Filt Rate > 60; Glucose 168 mg/dL (65-110); Sodium 133 mmol/L (137-145)
[2024-09-06 15:58] LABS: Platelet Estimate Slightly Decreased (Adequate)
[2024-09-06 15:59] LABS: Anisocytosis 1+; Macrocytosis 1+ (NORMAL); Ovalocytes 1+; Schistocytes None Seen
[2024-09-06 16:01] LABS: INR 1.1; Prothrombin Time 14.2 Seconds (11.1-14.7)
[2024-09-06 16:02] LABS: Alveolar/Arterial O2 Gradient 38.2 mmHg; Base Excess ABG -0.1 mEq/l (+/-2.0); Fractional Inspired Oxygen 21 %; HCO3 ABG 23.5 mEq/l (22.0-26.0); Oxygen Content ABG 9.1 %vol (16.0-22.0); Oxygen Saturation ABG 95.3 % (95.0-100.0); Oxyhemoglobin 91.5 % THb (90.0-100.0); PCO2 ABG 33.5 mmHg (35.0-45.0); PO2 ABG 71.4 mmHg (80.0-100.0); pH ABG 7.464 (7.350-7.450)
[2024-09-06 16:05] LABS: Modified Allen's Test Pass; Site Drawn RIGHT RADIAL
[2024-09-06 16:07] LABS: Partial Thromboplastin Time 34.3 Seconds (22.3-36.8)
[2024-09-06 16:08] LABS: Troponin I 0.013 ng/mL (0.000-0.034)
[2024-09-06 17:17] LABS: Influenza A QL RT-PCR Negative (Negative); Influenza B QL RT-PCR Negative (Negative); RSV RNA, RT-PCR Negative (Negative); SARS-CoV-2 RNA PCR Negative (Negative)
[2024-09-06] MEDS: SODIUM CHLORIDE 0.9% IV 250 ML 30 ML IV CONT (18:50)
[2024-09-06 20:30] LABS: Add Urine Microscopic? YES; Appearance Urine Clear (Clear); Bacteria Urine None Seen /hpf; Bilirubin Urine Negative (Negative); Blood Urine Trace (Negative); Color Urine Yellow (Yellow); Glucose Urine UA Negative (Negative); Ketones Urine Negative (Negative); Leukocyte Esterase Ur Negative LEU/UL (Negative); Nitrate Urine Negative (Negative); Non Pathogenic Casts 0-2; Protein Urine 1+ mg/dL (Negative); Specific Grav Ur 1.042 (1.001-1.035); Squamous Epithelial Cell Urine None Seen /hpf (Few); WBC Urine 0-5 /hpf (0-3); pH Urine 7.5 (5.0-9.0)
--- NOTE | 2024-09-06 23:56 | P.HP_ITS ---
H&P: HPI History of Present Illness Date/Time: 09/06/24 23:56 Chief Complaint: 1. Weakness 2. Confusion 3. Poor appetite Narrative: Balaji Peñaloza is an 84 yo M with a Mhx significant for Prostate Ca w/Mets, ZACKERY, GERD. He was brought by his son and daughter due to worsening fatigue, malaise and anorexia; with no known modifying factors, his symptoms have been associated with an unstable gait, increased somnolence, confusion and poor execution of his ADLs. He denies chest pains, fevers, chills, flank pain, vomiting, diarrhea, flank pain He does not smoke/chew tobacco, drink alcohol or consume recreational drugs. Work-up findings: Lab work shows no leukocytosis. Hemoglobin 7.5, MCV elevated at 109. Most recent hemoglobin in 2021 was 9.7. Platelets are also low at 101. ABG reveals a low hemoglobin at 7. BUN of 26 and a creatinine of 1. Lactic acid 1.2. CK normal at 150. TSH within normal limits. EKG shows sinus rhythm with frequent supraventricular premature complexes, no ischemic changes. CT brain shows no acute intracranial process. CT chest abdomen pelvis shows a moderate right and small left pleural effusions. mediastinal lymphadenopathy and chronic bone lesions concerning for metastatic disease. Transfused 1U PRBC in the ED, He will be admitted, evaluated and managed for symptomatic anemia PMFSH Past Medical History Medical History Anemia Hypercholesteremia Prostate cancer Surgical History Surgical History No significant past surgical history Family History Family History Other Unknown family medical history Social History Social History Social History: Patient lives at home with his Chitra and has been to her for 50 years. They do have 1 dog and 6 children. He wishes to be a full code at this time. Smoking status: Never smoker Alcohol intake: never Substance use: never Do You Feel Safe in your Home?: Yes Lack of Transportation: No Lack of Food: Never True Current Housing: I Have Housing Concerned About Future Housing: No Difficulty Paying Gas/Electric Bills: No Difficulty Paying for Meds: No Currently Unemployed: No Education: Grade School Difficulty w/ Childcare or Family Care: No Living arrangements: with family Occupation/Education: retired Gender identity (if verbalized by the patient): Male Sexual Orientation (if Verbalized by the Patient): Straight or Heterosexual Spiritual care concerns: No Meds Home Medications and Allergies Home Medications Medication Instructions Recorded Confirmed Type mirabegron 50 mg tablet,extended 50 mg PO DAILY 07/23/22 09/07/24 History release 24 hr (Myrbetriq) tamsulosin 0.4 mg capsule 0.4 mg PO DAILY 07/23/22 09/07/24 History bedoyecta 1 tab-cap PO DAILY 09/07/24 09/07/24 History bicalutamide 50 mg tablet 150 mg PO DAILY 09/07/24 09/07/24 History calcitriol 0.5 mcg capsule 0.5 mcg PO DAILY 09/07/24 09/07/24 History calcium 200 mg (as 1 tablet PO DAILY 09/07/24 09/07/24 History citrate)-mins-D3 200 unit-K2 16 mcg-silicon tablet (ADVANCED Calcium) ciprofloxacin HCl 0.3 % eye drops 1 drp RIGHT EYE QID 09/07/24 09/07/24 History dexamethasone 4 mg tablet 4 mg PO DAILY 09/07/24 09/07/24 History docusate sodium 100 mg capsule 100 mg PO DAILY 09/07/24 09/07/24 History famotidine 20 mg tablet 20 mg PO BID 09/07/24 09/07/24 History ferrous sulfate 325 mg (65 mg 325 mg PO DAILY 09/07/24 09/07/24 History iron) tablet (FeroSul) furosemide 20 mg tablet 20 mg PO USEASDIRECTD 09/07/24 09/07/24 History meclizine 25 mg tablet 25 mg PO TID PRN Dizziness 09/07/24 09/07/24 History dznjazkj-gjgjaorgo-ikkrtsbjr 3.5 3 drp RIGHT EAR TID 09/07/24 09/07/24 History mg-10,000 unit/mL-1 % ear drops,susp omega-3 fatty acids 1,000 mg PO DAILY 09/07/24 09/07/24 History paroxetine HCl 10 mg tablet 10 mg PO DAILY 09/07/24 09/07/24 History tramadol 50 mg tablet 50 mg PO Q6H PRN Pain 09/07/24 09/07/24 History Allergies Allergy/AdvReac Type Severity Reaction Status Date / Time atorvastatin AdvReac Unknown Unknown Verified 09/06/24 15:15 Vital Signs Vital Signs - 24 hr 09/06/24 12:43 09/06/24 15:13 09/06/24 15:25 Temperature 98.6 F Pulse Rate 53 L 88 Respiratory Rate 18 16 Blood Pressure 102/51 L 117/61 Pulse Oximetry 95 95 Oxygen Delivery Room Air 09/06/24 18:46 09/06/24 19:03 09/06/24 20:03 Temperature 98.2 F 97.9 F 97.6 F Pulse Rate 82 79 82 Respiratory Rate 22 H 16 21 H Blood Pressure 110/64 114/68 121/63 Pulse Oximetry 99 96 94 Oxygen Delivery 09/06/24 14:57 09/06/24 15:00 09/06/24 15:16 Temperature Pulse Rate 88 88 90 Respiratory Rate 22 H 16 13 Blood Pressure 117/68 121/65 117/61 Pulse Oximetry 96 95 Oxygen Delivery 09/06/24 15:31 09/06/24 15:45 09/06/24 16:00 Temperature Pulse Rate 85 84 84 Respiratory Rate 13 12 12 Blood Pressure 107/53 L 95/62 L 116/58 L Pulse Oximetry 96 97 97 Oxygen Delivery 09/06/24 17:23 09/06/24 17:30 09/06/24 17:45 Temperature Pulse Rate 91 85 83 Respiratory Rate 12 13 14 Blood Pressure 123/62 126/75 128/66 Pulse Oximetry 94 94 94 Oxygen Delivery 09/06/24 18:00 09/06/24 18:15 09/06/24 18:30 Temperature Pulse Rate 83 81 84 Respiratory Rate 13 15 13 Blood Pressure 107/72 118/64 104/68 Pulse Oximetry 97 94 97 Oxygen Delivery 09/06/24 18:45 09/06/24 18:48 09/06/24 19:01 Temperature Pulse Rate 93 80 82 Respiratory Rate 13 12 12 Blood Pressure 110/64 113/59 L 115/67 Pulse Oximetry 97 97 98 Oxygen Delivery 09/06/24 19:04 09/06/24 19:15 09/06/24 19:30 Temperature Pulse Rate 81 81 85 Respiratory Rate 14 12 12 Blood Pressure 114/68 105/60 118/71 Pulse Oximetry 96 98 97 Oxygen Delivery 09/06/24 19:55 09/06/24 20:00 09/06/24 20:15 Temperature Pulse Rate 79 81 76 Respiratory Rate 12 29 H 12 Blood Pressure 113/79 126/76 114/67 Pulse Oximetry 97 99 99 Oxygen Delivery 09/06/24 20:31 09/06/24 20:43 09/06/24 20:46 Temperature 97.6 F Pulse Rate 80 78 77 Respiratory Rate 11 L 16 12 Blood Pressure 121/63 128/72 120/64 Pulse Oximetry 95 94 Oxygen Delivery 09/06/24 21:00 09/06/24 21:15 09/06/24 21:30 Temperature Pulse Rate 84 78 81 Respiratory Rate 12 13 12 Blood Pressure 107/63 113/69 130/78 Pulse Oximetry 94 96 96 Oxygen Delivery 09/06/24 21:45 09/06/24 22:00 09/06/24 22:15 Temperature Pulse Rate 76 74 77 Respiratory Rate 15 13 13 Blood Pressure 116/77 106/65 120/67 Pulse Oximetry 95 95 94 Oxygen Delivery 09/06/24 22:30 09/06/24 22:45 09/06/24 23:00 Temperature Pulse Rate 75 77 78 Respiratory Rate 12 17 11 L Blood Pressure 104/63 111/71 106/76 Pulse Oximetry 94 93 94 Oxygen Delivery H&P: Results Labs Labs: Short CBC 09/06/24 Range/Units 15:39 WBC 5.0 (4.5-10.0) K/mm3 Hgb 7.5 L (14.0-18.0) g/dL Hct 22.0 L (42.0-52.0) % Plt Count 101 L D (150-375) k/mm3 BMP 09/06/24 15:39 Sodium 133 L Potassium 4.0 Chloride 101 Carbon Dioxide 27 BUN 26 H D Creatinine 1.00 Glucose 168 H Calcium 8.4 Cardiac Enzymes 09/06/24 Range/Units 15:39 Total Creatine Kinase 150 (55-170) U/L Troponin I 0.013 (0.000-0.034) ng/mL Liver Function 09/06/24 Range/Units 15:39 Total Bilirubin 0.7 (0.2-1.3) mg/dL AST 41 (17-59) U/L ALT 17 (6-50) U/L Alkaline Phosphatase 57 (38-126) U/L Albumin 3.2 L (3.5-5.1) g/dL Urine 09/06/24 Range/Units 20:20 Urine Color Yellow (Yellow) Urine Appearance Clear (Clear) Urine pH 7.5 (5.0-9.0) Ur Specific [place] 1.042 H (1.001-1.035) Urine Protein 1+ H (Negative) mg/dL Urine Glucose (UA) Negative (Negative) mg/dL Assessment and Plan Assessment and plan (1) Generalized weakness: Code(s): R53.1 - Weakness Status: Acute (2) Anemia, macrocytic: Code(s): D53.9 - Nutritional anemia, unspecified Status: Acute Plan Acute and principal conditions. 1. Symptomatic anemia 2. Physical deconditioning a. Transfuse 1U PRBC; goal Hb >7 b. PT eval and Rx Chronic and stable conditions 1. Obesity. 2. BPH; Prostate Ca, with mets. 3. GERD. 4. ZACKERY. 5. OAB. 6. Recurrent depression. Miscellaneous care. 1. Nutrition. CLD 2. VTE prophylaxis. SCDs; holding pharmacologic VTE till cleared Hospitalist MIPS Advance Care Plan I have confirmed that the patient's Advanced Care Plan is present, code status is documented, or surrogate decision maker is listed in patient medical record.: Yes Medication Reconciliation I have utilized all available resources to obtain, update and review the patients current medications (includes all prescriptions, OTC, herbals, cannabis, and nutritional supplements).: Yes
[2024-09-07 00:01] VITALS: BP 112/70; PULSE 75; RESP 13; O2SAT 94
[2024-09-07 01:11] VITALS: BP 114/74; PULSE 76; RESP 20; TEMP 36.3; O2SAT 96; BMI 28.7
--- NOTE | 2024-09-07 02:47 | ADMGEN ---
This patient, Balaji Alonzo, was admitted to 3 [facility] Surg Room 324-01. Patient/family oriented to hospital policies and general routines including ID bracelet, bed and alarms, visiting hours, pain management, procedures, bathroom and other care routines, personal items, smoking policy, room service/diet, and visiting hours. Information on how to activate the Rapid Response Team has been discussed. Patient/Family are encouraged to report perceived risks to care and to ask questions if they do not understand what they are told or what they should do.
[2024-09-07 02:56] VITALS: PULSE 76; RESP 20; O2SAT 96
[2024-09-07 05:59] VITALS: BP 125/72; PULSE 77; RESP 12; TEMP 36.8; O2SAT 95
[2024-09-07 07:19] LABS: Basophils Percent Auto 0.2 % (0.2-1.2); Eosinophils Percent Auto 0.6 % (0-4.4); Hematocrit 25.3 % (42.0-52.0); Hemoglobin 8.4 g/dL (14.0-18.0); Immature Granulocyte Absolute 0.21 K/mm3 (0.00-0.031); Immature Granulocyte Percent A 4.5 % (0-0.5); Immature Platelet Fraction Pct 1.9 % (0.9-11.2); Lymphocytes Absolute Auto 1.37 K/mm3 (0.9-3.2); Lymphocytes Percent Auto 29.1 % (18.3-44.2); Mean Corpuscular HGB Conc 33.2 g/dl (32-36); Mean Corpuscular Volume 105.4 fl (80-100); Mean Platelet Volume 9.3 fl (7.4-10.4); Monocytes Absolute Auto 0.4 K/mm3 (0.1-0.6); Monocytes Percent Auto 7.9 % (2.6-8.5); Neutrophils Absolute Auto 2.7 K/mm3 (1.3-6.7); Neutrophils Percent Auto 57.7 % (45.5-73.1); Nucleated Red Blood Cells Perc 1.3 % (0.0-0.2); Platelet Count Result 103 k/mm3 (150-375); White Blood Count 4.7 K/mm3 (4.5-10.0)
[2024-09-07 07:29] LABS: Alanine Aminotransferase 15 U/L (6-50); Albumin Level 3.1 g/dL (3.5-5.1); Alkaline Phosphatase 55 U/L (38-126); Anion Gap 3 mmol/L (4-12); Aspartate Amino Transferase 34 U/L (17-59); Bilirubin,Total 0.7 mg/dL (0.2-1.3); Blood Urea Nitrogen 20 mg/dL (9-20); Calcium 7.8 mg/dL (8.4-10.2); Carbon Dioxide 25 mmol/L (22-30); Chloride 106 mmol/L (98-107); Estimated Glomerular Filt Rate > 60; Glucose 73 mg/dL (65-110); Potassium 3.6 mmol/L (3.4-5.0); Sodium 134 mmol/L (137-145)
[2024-09-07 08:18] LABS: Anisocytosis 3+; Platelet Estimate Slightly Decreased (Adequate)
[2024-09-07 08:19] LABS: Schistocytes None Seen
--- NOTE | 2024-09-07 10:06 | PM.IMPN ---
Progress Note: A&P Assessment and Plan (1) Generalized weakness: Code(s): R53.1 - Weakness Status: Acute Assessment and Plan: CT chest, abd, and pelvis showing Moderate right and small left pleural effusions. Mediastinal lymphadenopathy. Chronic bone lesions concerning for metastatic disease. Bone lesions shown on yates scan from 08/2022 PT and OT eval and treat Consult patients oncologist Dr Gandhi (2) Anemia, macrocytic: Code(s): D53.9 - Nutritional anemia, unspecified Status: Acute Assessment and Plan: history of iron deficiency anemia 1 unit RBC transfused on 09/07 monitor for bleeding recheck iron levels (3) Altered mental status: Code(s): R41.82 - Altered mental status, unspecified Status: Acute Assessment and Plan: CT head no acute process family patient has been getting more forgetful home, will consult Neurology UA negative for UTI CT chest abdomen pelvis without any acute infectious process (4) Constipation: Code(s): K59.00 - Constipation, unspecified Status: Acute Assessment and Plan: suppository times MiraLax and senna as needed (5) Prostate cancer: Code(s): C61 - Malignant neoplasm of prostate Status: Acute Assessment and Plan: consult oncology continue home medication (6) Hypocalcemia: Code(s): E83.51 - Hypocalcemia Status: Acute Assessment and Plan: continue medications Plan VTE prophylaxis. SCDs; holding pharmacologic VTE till cleared Time Spent With Patient Time with patient: Greater than 35 minutes Subjective Date/time seen: 09/07/24 10:06 Interval history: 84 yo M with a Mhx significant for Prostate Ca w/Mets, ZACKERY, GERD brought to the hospital by family for due to worsening fatigue, malaise and anorexia; with no known modifying factors, his symptoms have been associated with an unstable gait, increased somnolence, confusion and poor execution of his ADLs. Objective Data Vital Signs Vital Signs: Vital Signs - 24 hr 09/06/24 12:43 09/06/24 15:13 09/06/24 15:25 Temperature 98.6 F Pulse Rate 53 L 88 Respiratory Rate 18 16 Blood Pressure 102/51 L 117/61 Pulse Oximetry 95 95 Oxygen Delivery Room Air 09/06/24 18:46 09/06/24 19:03 09/06/24 20:03 Temperature 98.2 F 97.9 F 97.6 F Pulse Rate 82 79 82 Respiratory Rate 22 H 16 21 H Blood Pressure 110/64 114/68 121/63 Pulse Oximetry 99 96 94 Oxygen Delivery 09/06/24 14:57 09/06/24 15:00 09/06/24 15:16 Temperature Pulse Rate 88 88 90 Respiratory Rate 22 H 16 13 Blood Pressure 117/68 121/65 117/61 Pulse Oximetry 96 95 Oxygen Delivery 09/06/24 15:31 09/06/24 15:45 09/06/24 16:00 Temperature Pulse Rate 85 84 84 Respiratory Rate 13 12 12 Blood Pressure 107/53 L 95/62 L 116/58 L Pulse Oximetry 96 97 97 Oxygen Delivery 09/06/24 17:23 09/06/24 17:30 09/06/24 17:45 Temperature Pulse Rate 91 85 83 Respiratory Rate 12 13 14 Blood Pressure 123/62 126/75 128/66 Pulse Oximetry 94 94 94 Oxygen Delivery 09/06/24 18:00 09/06/24 18:15 09/06/24 18:30 Temperature Pulse Rate 83 81 84 Respiratory Rate 13 15 13 Blood Pressure 107/72 118/64 104/68 Pulse Oximetry 97 94 97 Oxygen Delivery 09/06/24 18:45 09/06/24 18:48 09/06/24 19:01 Temperature Pulse Rate 93 80 82 Respiratory Rate 13 12 12 Blood Pressure 110/64 113/59 L 115/67 Pulse Oximetry 97 97 98 Oxygen Delivery 09/06/24 19:04 09/06/24 19:15 09/06/24 19:30 Temperature Pulse Rate 81 81 85 Respiratory Rate 14 12 12 Blood Pressure 114/68 105/60 118/71 Pulse Oximetry 96 98 97 Oxygen Delivery 09/06/24 19:55 09/06/24 20:00 09/06/24 20:15 Temperature Pulse Rate 79 81 76 Respiratory Rate 12 29 H 12 Blood Pressure 113/79 126/76 114/67 Pulse Oximetry 97 99 99 Oxygen Delivery 09/06/24 20:31 09/06/24 20:43 09/06/24 20:46 Temperature 97.6 F Pulse Rate 80 78 77 Respiratory Rate 11 L 16 12 Blood Pressure 121/63 128/72 120/64 Pulse Oximetry 95 94 Oxygen Delivery 09/06/24 21:00 09/06/24 21:15 09/06/24 21:30 Temperature Pulse Rate 84 78 81 Respiratory Rate 12 13 12 Blood Pressure 107/63 113/69 130/78 Pulse Oximetry 94 96 96 Oxygen Delivery 09/06/24 21:45 09/06/24 22:00 09/06/24 22:15 Temperature Pulse Rate 76 74 77 Respiratory Rate 15 13 13 Blood Pressure 116/77 106/65 120/67 Pulse Oximetry 95 95 94 Oxygen Delivery 09/06/24 22:30 09/06/24 22:45 09/06/24 23:00 Temperature Pulse Rate 75 77 78 Respiratory Rate 12 17 11 L Blood Pressure 104/63 111/71 106/76 Pulse Oximetry 94 93 94 Oxygen Delivery 09/06/24 23:15 09/06/24 23:31 09/06/24 23:45 Temperature Pulse Rate 76 84 82 Respiratory Rate 12 15 20 Blood Pressure 110/65 124/67 107/71 Pulse Oximetry 93 94 93 Oxygen Delivery 09/07/24 00:01 09/07/24 01:11 09/07/24 02:56 Temperature 97.4 F L Pulse Rate 75 76 76 Respiratory Rate 13 20 20 Blood Pressure 112/70 114/74 Pulse Oximetry 94 96 96 Oxygen Delivery Room Air 09/07/24 05:59 09/07/24 08:00 Temperature 98.3 F Pulse Rate 77 Respiratory Rate 12 Blood Pressure 125/72 Pulse Oximetry 95 Oxygen Delivery Room Air Intake/Output Intake/Output: Intake & Output 09/04/24 09/05/24 09/06/24 09/07/24 23:59 23:59 23:59 23:59 Intake Total 1600 270 Balance 1600 270 Meds/Results Medications: Active Medications Generic Name Dose Route Start Last Admin Trade Name Jeffq PRN Reason Stop Dose Admin Acetaminophen 650 mg 09/06/24 23:53 Acetaminophen 325 Mg Tablet PO Q4H PRN Mild Pain (1-3) or Fever Bisacodyl 10 mg 09/06/24 23:53 Bisacodyl 10 Mg Suppository RECTAL ONCE PRN Constipation Radiology Results: ITS Impressions Head CT 09/06/24 17:45 IMPRESSION: No acute intracranial process. Chest/Abdomen/Pelvis CT 09/06/24 18:01 IMPRESSION: Moderate right and small left pleural effusions. Mediastinal lymphadenopathy. Chronic bone lesions concerning for metastatic disease. Labs Labs: Laboratory Results - last 24 hr 09/06/24 09/06/24 09/06/24 15:39 15:55 16:35 WBC 5.0 RBC 2.01 L Hgb 7.5 L Hct 22.0 L MCV 109.5 H MCH 37.3 H MCHC 34.1 RDW 22.1 H Plt Count 101 L D MPV 9.1 Immature Gran % (Auto) 2.4 H Neut % (Auto) 74.2 H Lymph % (Auto) 14.1 L [place] % (Auto) 8.3 Eos % (Auto) 0.6 Baso % (Auto) 0.4 Lymph # (Auto) 0.71 L [place] # (Auto) 0.4 Eos # (Auto) 0.0 Baso # (Auto) 0.0 Abs Immat Gran (auto) 0.12 H Absolute Neuts (auto) 3.7 Absolute Nucleated RBC 0.040 H Nucleated RBC % 0.8 H Platelet Estimate Slightly decreased % Immature Plt Fraction 1.4 Anisocytosis 1+ Macrocytosis 1+ Ovalocytes 1+ Schistocytes None seen PT 14.2 INR 1.1 APTT 34.3 Puncture Site Right radial ABG pH 7.464 H ABG pCO2 33.5 L ABG pO2 71.4 L ABG PO2/FiO2 Ratio 3.40 ABG HCO3 23.5 ABG O2 Saturation 95.3 ABG O2 Content 9.1 L ABG Base Excess -0.1 A-a Gradient 38.2 Oxyhemoglobin 91.5 Total Hemoglobin 7.0 L* O2 Delivery Device Not Reportable O2 Liters/Min Not Reportable FiO2 21 Sodium 133 L Potassium 4.0 Chloride 101 Carbon Dioxide 27 Anion Gap 5 BUN 26 H D Creatinine 1.00 Estim Creat Clear Calc Not Reportable Estimated GFR > 60 Glucose 168 H Lactic Acid 1.2 Calcium 8.4 Total Bilirubin 0.7 AST 41 ALT 17 Alkaline Phosphatase 57 Total Creatine Kinase 150 Troponin I 0.013 Total Protein 6.0 L Albumin 3.2 L TSH 2.090 Urine Color Urine Appearance Urine pH Ur Specific [place] Urine Protein Urine Glucose (UA) Urine Ketones Ur Blood (Man) Urine Nitrate Urine Bilirubin Urine Urobilinogen Leukocyte Esterase Rfl Urine RBC Urine WBC Ur Squamous Epith Cells Urine Bacteria Urine Casts Influenza A (RT-PCR) Negative Influenza B (RT-PCR) Negative RSV (RT-PCR) Negative SARS-CoV-2 RNA (RT-PCR) Negative Blood Type O Positive Antibody Screen Negative Crossmatch See Detail 09/06/24 09/07/24 20:20 06:28 WBC 4.7 RBC 2.40 L Hgb 8.4 L Hct 25.3 L MCV 105.4 H MCH 35.0 H D MCHC 33.2 RDW 24.0 H Plt Count 103 L MPV 9.3 Immature Gran % (Auto) 4.5 H Neut % (Auto) 57.7 Lymph % (Auto) 29.1 [place] % (Auto) 7.9 Eos % (Auto) 0.6 Baso % (Auto) 0.2 Lymph # (Auto) 1.37 [place] # (Auto) 0.4 Eos # (Auto) 0.0 Baso # (Auto) 0.0 Abs Immat Gran (auto) 0.21 H Absolute Neuts (auto) 2.7 Absolute Nucleated RBC 0.060 H Nucleated RBC % 1.3 H Platelet Estimate Slightly decreased % Immature Plt Fraction 1.9 Anisocytosis 3+ Macrocytosis Ovalocytes Schistocytes None seen PT INR APTT Puncture Site ABG pH ABG pCO2 ABG pO2 ABG PO2/FiO2 Ratio ABG HCO3 ABG O2 Saturation ABG O2 Content ABG Base Excess A-a Gradient Oxyhemoglobin Total Hemoglobin O2 Delivery Device O2 Liters/Min FiO2 Sodium 134 L Potassium 3.6 Chloride 106 Carbon Dioxide 25 Anion Gap 3 L BUN 20 Creatinine 0.90 Estim Creat Clear Calc Not Reportable Estimated GFR > 60 Glucose 73 Lactic Acid Calcium 7.8 L Total Bilirubin 0.7 AST 34 ALT 15 Alkaline Phosphatase 55 Total Creatine Kinase Troponin I Total Protein 6.0 L Albumin 3.1 L TSH Urine Color Yellow Urine Appearance Clear Urine pH 7.5 Ur Specific [place] 1.042 H Urine Protein 1+ H Urine Glucose (UA) Negative Urine Ketones Negative Ur Blood (Man) Trace Urine Nitrate Negative Urine Bilirubin Negative Urine Urobilinogen 1.0 Leukocyte Esterase Rfl Negative Urine RBC 6-10 H Urine WBC 0-5 Ur Squamous Epith Cells None seen Urine Bacteria None seen Urine Casts 0-2 Influenza A (RT-PCR) Influenza B (RT-PCR) RSV (RT-PCR) SARS-CoV-2 RNA (RT-PCR) Blood Type Antibody Screen Crossmatch Quality VTE Prophylaxis VTE prophylaxis: mechanical ordered If No VTE Prophylaxis Answer both mechanical and pharmacologic: Reason no pharmacologic proph: medical contraindication thrombocytopenia Hospitalist MIPS Advance Care Plan I have confirmed that the patient's Advanced Care Plan is present, code status is documented, or surrogate decision maker is listed in patient medical record.: Yes Medication Reconciliation I have utilized all available resources to obtain, update and review the patients current medications (includes all prescriptions, OTC, herbals, cannabis, and nutritional supplements).: Yes
[2024-09-07] MEDS: FUROSEMIDE 20 MG TABLET PO (10:30)
--- NOTE | 2024-09-07 13:00 | PC.NURSE ---
RN assumed care
[2024-09-07 14:00] VITALS: BP 131/57; PULSE 73; RESP 16; TEMP 35.9; O2SAT 94
--- NOTE | 2024-09-07 18:01 | PC.NURSE ---
pt returned to room from procedure with no pt band so RN just received a new one
--- NOTE | 2024-09-07 18:09 | PDONCCN ---
[facility] - Date of Consult Date/Time: 09/07/24 18:09 Requesting Physician: Mark Marsh MD Primary Care Provider: Rachel OneillZofia - Consult Narrative Reason for consult: Metastatic prostate cancer Narrative: Balaji Alonzo is a 84 year old male with history of metastatic prostate cancer treated by for long time. He was diagnosed with prostate cancer in 2012. According to patient's family he was started on Casodex just in May of this year. Plan was to start him on chemotherapy. Patient was brought into the hospital sting tiredness and fatigue weight loss and anorexia. Labs showed hemoglobin of 7.5. He denies any bleeding including melena. Patient received 1 unit of packed red blood cell. He remains tired and fatigued hemoglobin has improved to 8.4. CT scan chest abdomen and pelvis was performed that showed moderate right and small left-sided pleural effusion with mediastinal lymphadenopathy and chronic bone lesions consistent with metastatic disease. Review of Systems - Review of Systems All systems reviewed & are unremarkable except as noted in HPI and [facility] [place] [facility] History: Medical History (Last Updated 09/07/24 @ 15:29 by Hailey Ramos APRN) Anemia Hypercholesteremia Prostate cancer Surgical History: Surgical History (Last Reviewed 09/06/24 @ 15:39 by Jeannette Cm PA-C) No significant past surgical history Family History: Family History (Last Reviewed 09/07/24 @ 00:07 by Nishi Laguna RN) Other Unknown family medical history - Social History Social History: Social History (Last Reviewed 09/06/24 @ 15:39 by Jeannette Cm PA-C) Gender Identity: Gender identity (if verbalized by the patient): Male Sexual Orientation: Sexual Orientation (if Verbalized by the Patient): Straight or Heterosexual Alcohol Use: Alcohol intake: never Substance Use: Substance use: never Others: Spiritual care concerns: No Living Arrangements: Living arrangements: with family Oppucation/Education: Occupation/Education: retired Smoking Status: Smoking status: Never smoker Social Determinants of Health: Do You Feel Safe in your Home?: Yes Has the Lack of Transportation Kept You From Medical Appointments or From Getting Medications?: No Within the Past 12 Months, Were You Worried Whether Your Food Would Run Out Before You Got Money to Buy More?: Never True What is Your Housing Situation Today?: I Have Housing Are You Worried That in the Next 2 Months, You May Not Have Your Own Housing to Live In?: No Do You Have Trouble Paying Your Heating Or Electricity Bill?: No Do You Have Trouble Paying For Medicines?: No Are You Currently Unemployed and Looking for Work?: No Highest Level of Education Completed: Grade School Do You Have Trouble With Childcare or the Care of a Family Member?: No Exam - Vital Signs Vital Signs - 24 hr 09/06/24 18:46 09/06/24 19:03 09/06/24 20:03 Temperature 36.8 C 36.6 C 36.4 C Pulse Rate 82 79 82 Respiratory Rate 22 H 16 21 H Blood Pressure 110/64 114/68 121/63 Pulse Oximetry 99 96 94 Oxygen Delivery 09/06/24 18:15 09/06/24 18:30 09/06/24 18:45 Temperature Pulse Rate 81 84 93 Respiratory Rate 15 13 13 Blood Pressure 118/64 104/68 110/64 Pulse Oximetry 94 97 97 Oxygen Delivery 09/06/24 18:48 09/06/24 19:01 09/06/24 19:04 Temperature Pulse Rate 80 82 81 Respiratory Rate 12 12 14 Blood Pressure 113/59 L 115/67 114/68 Pulse Oximetry 97 98 96 Oxygen Delivery 09/06/24 19:15 09/06/24 19:30 09/06/24 19:55 Temperature Pulse Rate 81 85 79 Respiratory Rate 12 12 12 Blood Pressure 105/60 118/71 113/79 Pulse Oximetry 98 97 97 Oxygen Delivery 09/06/24 20:00 09/06/24 20:15 09/06/24 20:31 Temperature Pulse Rate 81 76 80 Respiratory Rate 29 H 12 11 L Blood Pressure 126/76 114/67 121/63 Pulse Oximetry 99 99 Oxygen Delivery 09/06/24 20:43 09/06/24 20:46 09/06/24 21:00 Temperature 36.4 C Pulse Rate 78 77 84 Respiratory Rate 16 12 12 Blood Pressure 128/72 120/64 107/63 Pulse Oximetry 95 94 94 Oxygen Delivery 09/06/24 21:15 09/06/24 21:30 09/06/24 21:45 Temperature Pulse Rate 78 81 76 Respiratory Rate 13 12 15 Blood Pressure 113/69 130/78 116/77 Pulse Oximetry 96 96 95 Oxygen Delivery 09/06/24 22:00 09/06/24 22:15 09/06/24 22:30 Temperature Pulse Rate 74 77 75 Respiratory Rate 13 13 12 Blood Pressure 106/65 120/67 104/63 Pulse Oximetry 95 94 94 Oxygen Delivery 09/06/24 22:45 09/06/24 23:00 09/06/24 23:15 Temperature Pulse Rate 77 78 76 Respiratory Rate 17 11 L 12 Blood Pressure 111/71 106/76 110/65 Pulse Oximetry 93 94 93 Oxygen Delivery 09/06/24 23:31 09/06/24 23:45 09/07/24 00:01 Temperature Pulse Rate 84 82 75 Respiratory Rate 15 20 13 Blood Pressure 124/67 107/71 112/70 Pulse Oximetry 94 93 94 Oxygen Delivery 09/07/24 01:11 09/07/24 02:56 09/07/24 05:59 Temperature 36.3 C L 36.8 C Pulse Rate 76 76 77 Respiratory Rate 20 20 12 Blood Pressure 114/74 125/72 Pulse Oximetry 96 96 95 Oxygen Delivery Room Air 09/07/24 08:00 09/07/24 14:00 Temperature 35.9 C L Pulse Rate 73 Respiratory Rate 16 Blood Pressure 131/57 L Pulse Oximetry 94 Oxygen Delivery Room Air - Exam HEENT: EOMI, PERRLA, mucous membranes moist and pink Neck: supple Lungs: clear to auscultation, normal air movement Heart: no murmurs, gallops, or rubs, regular rhythm, regular rate Abdomen: abdomen soft, non-distended, normal bowel sounds Extremities: normal pulses Integumentary: no abnormalities Neurological: normal speech Psychological: mental status NL, mood NL - Lab Results Laboratory Last Values WBC 4.7 K/mm3 (4.5-10.0) 09/07/24 06:28 RBC 2.40 M/mm3 (4.6-6.20) L 09/07/24 06:28 Hgb 8.4 g/dL (14.0-18.0) L 09/07/24 06:28 Hct 25.3 % (42.0-52.0) L 09/07/24 06:28 MCV 105.4 fl (80-100) H 09/07/24 06:28 MCH 35.0 pg (26-34) H D 09/07/24 06:28 MCHC 33.2 g/dl (32-36) 09/07/24 06: RDW 24.0 % (11.5-14.5) H 09/07/24 06:28 Plt Count 103 k/mm3 (150-375) L 09/07/24 06:28 MPV 9.3 fl (7.4-10.4) 09/07/24 06:28 Immature Gran % (Auto) 4.5 % (0-0.5) H 09/07/24 06:28 Neut % (Auto) 57.7 % (45.5-73.1) 09/07/24 06: Lymph % (Auto) 29.1 % (18.3-44.2) 09/07/24: [place] % (Auto) 7.9 % (2.6-8.5) 09/07/24 06: Eos % (Auto) 0.6 % (0-4.4) 09/07/24 06: Baso % (Auto) 0.2 % (0.2-1.2) 09/07/24 06:28 Lymph # (Auto) 1.37 K/mm3 (0.9-3.2) 09/07/24 06:28 [place] # (Auto) 0.4 K/mm3 (0.1-0.6) 09/07/24 06:28 Eos # (Auto) 0.0 K/mm3 (0-0.3) 09/07/24 06: Baso # (Auto) 0.0 K/mm3 (0.0-0.1) 09/07/24 06:28 Abs Immat Gran (auto) 0.21 K/mm3 (0.00-0.031) H 09/07/24 06:28 Absolute Neuts (auto) 2.7 K/mm3 (1.3-6.7) 09/07/24 06: Absolute Nucleated RBC 0.060 K/mm3 (0.0-0.012) H 09/07/24 06: Nucleated RBC % 1.3 % (0.0-0.2) H 09/07/24 06:28 Platelet Estimate Slightly decreased (Adequate) 09/07/24 06: % Immature Plt Fraction 1.9 % (0.9-11.2) 09/07/24 06:28 Anisocytosis 3+ 09/07/24 06:28 Macrocytosis 1+ (NORMAL) 09/06/24 15:39 Ovalocytes 1+ 09/06/24 15:39 Schistocytes None seen 09/07/24 06:28 PT 14.2 Seconds (11.1-14.7) 09/06/24 15:39 INR 1.1 09/06/24 15:39 APTT 34.3 Seconds (22.3-36.8) 09/06/24 15:39 Puncture Site Right radial 09/06/24 15:55 ABG pH 7.464 (7.350-7.450) H 09/06/24 15:55 ABG pCO2 33.5 mmHg (35.0-45.0) L 09/06/24 15:55 ABG pO2 71.4 mmHg (80.0-100.0) L 09/06/24 15:55 ABG PO2/FiO2 Ratio 3.40 % 09/06/24 15:55 ABG HCO3 23.5 mEq/l (22.0-26.0) 09/06/24 15:55 ABG O2 Saturation 95.3 % (95.0-100.0) 09/06/24 15:55 ABG O2 Content 9.1 %vol (16.0-22.0) L 09/06/24 15:55 ABG Base Excess -0.1 mEq/l (+/-2.0) 09/06/24 15:55 A-a Gradient 38.2 mmHg 09/06/24 15:55 Oxyhemoglobin 91.5 % THb (90.0-100.0) 09/06/24 15:55 Total Hemoglobin 7.0 g/dL (12.0-18.0) L* 09/06/24 15:55 O2 Delivery Device Not Reportable 09/06/24 15:55 O2 Liters/Min Not Reportable 09/06/24 15:55 FiO2 21 % 09/06/24 15:55 Sodium 134 mmol/L (137-145) L 09/07/24 06:28 Potassium 3.6 mmol/L (3.4-5.0) 09/07/24 06:28 Chloride 106 mmol/L (98-107) 09/07/24 06:28 Carbon Dioxide 25 mmol/L (22-30) 09/07/24 06:28 Anion Gap 3 mmol/L (4-12) L 09/07/24 06:28 BUN 20 mg/dL (9-20) 09/07/24 06:28 Creatinine 0.90 mg/dL (0.7-1.3) 09/07/24 06:28 Estim Creat Clear Calc Not Reportable 09/07/24 06:28 Estimated GFR > 60 (59-) 09/07/24 06:28 Glucose 73 mg/dL (65-110) 09/07/24 06:28 Lactic Acid 1.2 mmol/L (0.7-2.0) 09/06/24 15:39 Calcium 7.8 mg/dL (8.4-10.2) L 09/07/24 06:28 Total Bilirubin 0.7 mg/dL (0.2-1.3) 09/07/24 06:28 AST 34 U/L (17-59) 09/07/24 06:28 ALT 15 U/L (6-50) 09/07/24 06:28 Alkaline Phosphatase 55 U/L (38-126) 09/07/24 06:28 Total Creatine Kinase 150 U/L (55-170) 09/06/24 15:39 Troponin I 0.013 ng/mL (0.000-0.034) 09/06/24 15:39 Total Protein 6.0 g/dL (6.3-8.2) L 09/07/24 06:28 Albumin 3.1 g/dL (3.5-5.1) L 09/07/24 06:28 TSH 2.090 uIU/mL (0.465-4.680) 09/06/24 15:39 Urine Color Yellow (Yellow) 09/06/24 20:20 Urine Appearance Clear (Clear) 09/06/24 20:20 Urine pH 7.5 (5.0-9.0) 09/06/24 20:20 Ur Specific [place] 1.042 (1.001-1.035) H 09/06/24 20:20 Urine Protein 1+ mg/dL (Negative) H 09/06/24 20:20 Urine Glucose (UA) Negative mg/dL (Negative) 09/06/24 20:20 Urine Ketones Negative mg/dL (Negative) 09/06/24 20:20 Ur Blood (Man) Trace (Negative) 09/06/24 20:20 Urine Nitrate Negative (Negative) 09/06/24 20:20 Urine Bilirubin Negative (Negative) 09/06/24 20:20 Urine Urobilinogen 1.0 mg/dL (<2.0) 09/06/24 20:20 Leukocyte Esterase Rfl Negative MAGALIE/UL (Negative) 09/06/24 20:20 Urine RBC 6-10 /hpf (0-2) H 09/06/24 20:20 Urine WBC 0-5 /hpf (0-3) 09/06/24 20:20 Ur Squamous Epith Cells None seen /hpf (Few) 09/06/24 20:20 Urine Bacteria None seen /hpf 09/06/24 20:20 Urine Casts 0-2 09/06/24 20:20 Influenza A (RT-PCR) Negative (Negative) 09/06/24 16:35 Influenza B (RT-PCR) Negative (Negative) 09/06/24 16:35 RSV (RT-PCR) Negative (Negative) 09/06/24 16:35 SARS-CoV-2 RNA (RT-PCR) Negative (Negative) 09/06/24 16:35 Blood Type O Positive 09/06/24 15:39 Antibody Screen Negative 09/06/24 15:39 Crossmatch See Detail 09/06/24 15:39 Meds Home Medications Medication Instructions Recorded Confirmed Type mirabegron 50 mg tablet,extended 50 mg PO DAILY 07/23/22 09/07/24 History release 24 hr (Myrbetriq) tamsulosin 0.4 mg capsule 0.4 mg PO DAILY 07/23/22 09/07/24 History bedoyecta 1 tab-cap PO DAILY 09/07/24 09/07/24 History bicalutamide 50 mg tablet 150 mg PO DAILY 09/07/24 09/07/24 History calcitriol 0.5 mcg capsule 0.5 mcg PO DAILY 09/07/24 09/07/24 History calcium 200 mg (as 1 tablet PO DAILY 09/07/24 09/07/24 History citrate)-mins-D3 200 unit-K2 16 mcg-silicon tablet (ADVANCED Calcium) ciprofloxacin HCl 0.3 % eye drops 1 drp RIGHT EYE QID 09/07/24 09/07/24 History dexamethasone 4 mg tablet 4 mg PO DAILY 09/07/24 09/07/24 History docusate sodium 100 mg capsule 100 mg PO DAILY 09/07/24 09/07/24 History famotidine 20 mg tablet 20 mg PO BID 09/07/24 09/07/24 History ferrous sulfate 325 mg (65 mg 325 mg PO DAILY 09/07/24 09/07/24 History iron) tablet (FeroSul) furosemide 20 mg tablet 20 mg PO USEASDIRECTD 09/07/24 09/07/24 History meclizine 25 mg tablet 25 mg PO TID PRN Dizziness 09/07/24 09/07/24 History vrfuxeir-bykrlapac-bgbvvycbf 3.5 3 drp RIGHT EAR TID 09/07/24 09/07/24 History mg-10,000 unit/mL-1 % ear drops,susp omega-3 fatty acids 1,000 mg PO DAILY 09/07/24 09/07/24 History paroxetine HCl 10 mg tablet 10 mg PO DAILY 09/07/24 09/07/24 History tramadol 50 mg tablet 50 mg PO Q6H PRN Pain 09/07/24 09/07/24 History Allergies Allergy/AdvReac Type Severity Reaction Status Date / Time atorvastatin AdvReac Unknown Unknown Verified 09/06/24 15:15 Results - Labs CBC & Chem 7: 09/07/24 06:28 09/07/24 06:28 Labs: Short CBC 09/07/24 Range/Units 06:28 WBC 4.7 (4.5-10.0) K/mm3 Hgb 8.4 L (14.0-18.0) g/dL Hct 25.3 L (42.0-52.0) % Plt Count 103 L (150-375) k/mm3 BMP 09/07/24 06:28 Sodium 134 L Potassium 3.6 Chloride 106 Carbon Dioxide 25 BUN 20 Creatinine 0.90 Glucose 73 Calcium 7.8 L Liver Function 09/07/24 Range/Units 06:28 Total Bilirubin 0.7 (0.2-1.3) mg/dL AST 34 (17-59) U/L ALT 15 (6-50) U/L Alkaline Phosphatase 55 (38-126) U/L Albumin 3.1 L (3.5-5.1) g/dL Urine 12/01/24 Range/Units 20:20 Urine Color Yellow (Yellow) Urine Appearance Clear (Clear) Urine pH 7.5 (5.0-9.0) Ur Specific [place] 1.042 H (1.001-1.035) Urine Protein 1+ H (Negative) mg/dL Urine Glucose (UA) Negative (Negative) mg/dL Assessment and Plan - Additional Plan 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 Patient was last seen by Dr. Gipson about a week ago according to patient family. He was started on Casodex in May of 2024. Plan was to start him on IV chemotherapy after improvement in his clinical status. Unfortunately patient was brought into the hospital with generalized weakness tiredness and fatigue and found to have 7.2. Hemoglobin has improved after blood transfusion but he remains quite tired and fatigued. He denies any bleeding including melena hematochezia. CT scan finding noted. His anemia is likely secondary to metastatic prostate cancer involving the bones. We will order the complete cancer workup for anemia that would include iron studies, aspirin receptor, vitamin B12 level and methylmalonic acid level. We will transfuse on as needed basis. I have instructed to follow-up with his oncologist further management. I have answered all questions to patient and family satisfaction.
[2024-09-07] MEDS: FAMOTIDINE 20 MG TABLET PO (18:26)
[2024-09-07] MEDS: DOCUSATE SODIUM 100 MG CAPSULE PO (18:26)
[2024-09-07] MEDS: SODIUM CHLORIDE 0.9% IV 1,000 ML 75 ML IV CONT (18:26)
[2024-09-07 20:04] LABS: Iron 78 ug/dL (49-181)
[2024-09-07 20:14] LABS: Percent Iron Saturation 36 % (20-50)
[2024-09-07 20:49] LABS: Folic Acid 7.3 ng/mL (2.76->20); Vitamin B12 > 1000.0 pg/mL (239-931)
[2024-09-07] MEDS: SENNA/DOCUSATE SODIUM TABLET 1 TAB PO (21:07)
[2024-09-07] MEDS: BISACODYL 10 MG SUPPOSITORY RECTAL (21:07)
[2024-09-07] MEDS: TAMSULOSIN HCL 0.4 MG CAPSULE PO (21:07)
[2024-09-07 22:00] VITALS: BP 151/61; PULSE 86; RESP 16; TEMP 36.7; O2SAT 92
[2024-09-07 22:08] LABS: Ferritin > 2000.00 ng/mL (11.1-264)
--- NOTE | 2024-09-08 | ECHO_ITS ---
Patient Info Name: Balaji Alonzo Age: 84 years : 1940 Gender: Male Ht: 59 in Wt: 142 lbs BSA: 1.66 m2 HR: 101 bpm BP: 129 / 60 mmHg Heart Rhythm: Tachycardia Technical Quality: Fair Exam Date: 09/08/2024 3:03 PM Exam Location: Echo Lab Patient Status: Inpatient Admit Date: 09/07/2024 Staff Ordering Physician: Yang Santos APRN Record Filing Clerk: Lamar Ruelas RDCS Attending Provider: Mark Marsh MD Exam Type: CA echo doppler color flow Study Info Indications - pleural effusion Complete two-dimensional, color flow and Doppler transthoracic echocardiogram is performed. Summary 1. Complete two-dimensional, color flow and Doppler transthoracic echocardiogram is performed. 2. Left ventricular chamber dimension is normal. 3. Left ventricular systolic function is normal, estimated at 65-70%. 4. There is no increased left ventricular wall thickness. 5. The left ventricular diastolic function is grade I diastolic dysfunction. 6. Right ventricular chamber dimension is mildly enlarged. 7. Left atrial chamber dimension is mildly enlarged. 8. There is mild tricuspid valve regurgitation. 9. There is small pericardial effusion. 10. The pericardium appears increased echogenicity of the pericardium. Left Ventricle Left ventricular chamber dimension is normal. Left ventricular systolic function is normal, estimated at 65-70%. There is no increased left ventricular wall thickness. The left ventricular diastolic function is grade I diastolic dysfunction. Right Ventricle Right ventricular chamber dimension is mildly enlarged. Right ventricular systolic function is normal. Left Atria Left atrial chamber dimension is mildly enlarged. Right Atria Right atrial chamber dimension is normal. Atrial Septum Intact interatrial septum visualized by color flow imaging. Aortic Valve The aortic valve is trileaflet. There is mild aortic valve sclerosis. There is no aortic valve stenosis. There is trace aortic valve regurgitation. Pulmonic Valve The pulmonic valve is normal. There is no pulmonic valve stenosis. There is trace pulmonic regurgitation. Mitral Valve The mitral valve has thickened leaflets. There is no mitral valve stenosis. There is trace mitral valve regurgitation. Tricuspid Valve The tricuspid valve leaflets are normal. There is no significant tricuspid valve stenosis. There is mild tricuspid valve regurgitation. No pulmonary hypertension, estimated pulmonary arterial systolic pressure is 32 mmHg. Pericardium/Pleural The pericardium appears increased echogenicity of the pericardium. There is small pericardial effusion. Inferior Vena Cava Normal inferior vena cava with >50% collapse upon inspiration consistent with normal right atrial pressure, 5 mmHg. Aorta The aortic root size at the sinus of Valsalva is normal. Left Ventricular Outflow Tract Name Value Normal LVOT 2D LVOT Diameter 2.0 cm LVOT Doppler LVOT Peak Gradient 4 mmHg Mitral Valve Name Value Normal MV Doppler MV Peak Gradient 2 mmHg MV Mean Gradient 1 mmHg MV Decel Bet[place] 153 cm/s2 MV PHT 62 ms MV Area (PHT) 3.6 cm2 4.0-5.0 MV Diastolic Function MV E Peak Velocity 33 cm/s MV A Peak Velocity 55 cm/s MV E/A 0.6 MV Decel Time 213 ms Tricuspid Valve Name Value Normal TV Regurgitation Doppler TR Peak Velocity 259 cm/s TR Peak Gradient 27 mmHg Estimated PAP/RSVP RA Pressure 5 mmHg <=5 PA Systolic Pressure 32 mmHg <36 RV Systolic Pressure 32 mmHg <36 Aortic Valve Name Value Normal AV Doppler AV Peak Velocity 133 cm/s AV Peak Gradient 7 mmHg AV Area (Cont Eq Jelani) 2.4 cm2 AV Regurgitation 2D LVOT Area 3.2 cm2 Ventricles Name Value Normal LV Dimensions 2D/MM LVOT Diameter 2.0 cm Report Signatures
[2024-09-08 06:00] VITALS: BP 129/60; PULSE 89; RESP 18; TEMP 36.8; O2SAT 96
[2024-09-08 06:58] LABS: Basophils Percent Auto 0.2 % (0.2-1.2); Eosinophils Percent Auto 0.4 % (0-4.4); Hematocrit 26.6 % (42.0-52.0); Hemoglobin 8.9 g/dL (14.0-18.0); Immature Granulocyte Absolute 0.11 K/mm3 (0.00-0.031); Immature Granulocyte Percent A 2.4 % (0-0.5); Immature Platelet Fraction Pct 1.2 % (0.9-11.2); Lymphocytes Absolute Auto 1.06 K/mm3 (0.9-3.2); Lymphocytes Percent Auto 22.8 % (18.3-44.2); Mean Corpuscular HGB Conc 33.5 g/dl (32-36); Mean Corpuscular Hemoglobin 35.2 pg (26-34); Mean Corpuscular Volume 105.1 fl (80-100); Monocytes Absolute Auto 0.4 K/mm3 (0.1-0.6); Monocytes Percent Auto 7.7 % (2.6-8.5); Neutrophils Absolute Auto 3.1 K/mm3 (1.3-6.7); Neutrophils Percent Auto 66.5 % (45.5-73.1); Nucleated Red Blood Cells Perc 1.1 % (0.0-0.2); Platelet Count Result 98 k/mm3 (150-375); Red Blood Count 2.53 M/mm3 (4.6-6.20); Red Cell Distribution Width 23.6 % (11.5-14.5); White Blood Count 4.7 K/mm3 (4.5-10.0)
[2024-09-08 07:20] LABS: Alanine Aminotransferase 14 U/L (6-50); Albumin Level 3.1 g/dL (3.5-5.1); Alkaline Phosphatase 61 U/L (38-126); Anion Gap 5 mmol/L (4-12); Aspartate Amino Transferase 31 U/L (17-59); Bilirubin,Total 0.9 mg/dL (0.2-1.3); Blood Urea Nitrogen 16 mg/dL (9-20); Calcium 7.7 mg/dL (8.4-10.2); Carbon Dioxide 25 mmol/L (22-30); Chloride 102 mmol/L (98-107); Estimated Glomerular Filt Rate > 60; Glucose 88 mg/dL (65-110); Potassium 3.3 mmol/L (3.4-5.0); Sodium 132 mmol/L (137-145)
[2024-09-08 07:31] LABS: Iron 67 ug/dL (49-181)
[2024-09-08 07:41] LABS: Percent Iron Saturation 33 % (20-50)
[2024-09-08 08:07] LABS: Anisocytosis 2+; Hypochromasia 1+; Macrocytosis 1+ (NORMAL); Ovalocytes 1+; Platelet Estimate Decreased (Adequate); Schistocytes None Seen
[2024-09-08] MEDS: polyethylene glycoL 3350 17 GM POWD.PACK PO (09:25)
[2024-09-08] MEDS: DOCUSATE SODIUM 100 MG CAPSULE PO ×2 (09:25→16:55)
[2024-09-08] MEDS: POTASSIUM CHLORIDE 20 MEQ ER TABLET 40 MEQ PO (09:27)
[2024-09-08] MEDS: FERROUS SULFATE 325 MG TABLET DR PO (09:28)
[2024-09-08] MEDS: MIRABEGRON 50 MG ER TABLET PO (09:29)
[2024-09-08] MEDS: calcitrioL 0.25 MCG CAPSULE 0.5 MCG PO (09:31)
[2024-09-08] MEDS: PARoxetine 10 MG TABLET PO (09:31)
[2024-09-08] MEDS: FAMOTIDINE 20 MG TABLET PO ×2 (09:32→16:55)
--- NOTE | 2024-09-08 12:08 | P.CONNEU_ITS ---
Assessment and Plan Assessment and plan (1) Generalized weakness: Code(s): R53.1 - Weakness Status: Acute (2) Osteolytic lesion due to metastasis: Code(s): C79.51 - Secondary malignant neoplasm of bone Status: Acute Plan 1. Carcinoma of the prostate 2. Generalized weakness with deconditioning 3. Anemia macrocytic, 4. Negative CT scan of the brain 5. Dehydration. He will benefit from the general supportive care along with dehydration, recurrent falls could be related to underlying neuropathy complicated by the anemia but again lopez pportive general care is [place]. Neurological investigation such as EMG nerve conduction study will not benefit the patient in the long run. 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 Consult date: 09/08/24 HPI: Balaji Alonzo is a 84 year old male Admitted to the hospital through the emergency room with the complaints of generalized weakness and additional complaints of lethargy and change in the mental status over the last 4 days patient reportedly lives at home with his and has been unable to care for himself usually walks with a walker but over the last few days has been unable to get up without several people assistance. 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 His origin all cancer was diagnosed about 10 years ago and has received several blood transfusions. He is taking multiple medications as listed including dexamethasone, paroxetine, and tamsulosin. He has never smoker by history, never alcohol intake or, and on initial evaluation in the emergency room he was found to have normal vital signs, EKG without any abnormalities, CT scan of the brain with no bleed or hydrocephalus, CT of the chest consistent with small left pleural effusion with mediastinal lymphadenopathy and chronic bone lesions, CBC with hemoglobin of only 7.5 and platelet count of 101, negative for all the , 1 seasonal viral infections Review of Systems Review of Systems: All systems reviewed & are unremarkable except as noted in HPI and below PMFSH Past Medical History Medical History Anemia Hypercholesteremia Prostate cancer Surgical History Surgical History No significant past surgical history Family History Family History Other Unknown family medical history Social History Social History Social History: Patient lives at home with his Chitra and has been to her for 50 years. They do have 1 dog and 6 children. He wishes to be a full code at this time. Smoking status: Never smoker Alcohol intake: never Substance use: never Do You Feel Safe in your Home?: Yes Lack of Transportation: No Lack of Food: Never True Current Housing: I Have Housing Concerned About Future Housing: No Difficulty Paying Gas/Electric Bills: No Difficulty Paying for Meds: No Currently Unemployed: No Education: Grade School Difficulty w/ Childcare or Family Care: No Living arrangements: with family Occupation/Education: retired Gender identity (if verbalized by the patient): Male Sexual Orientation (if Verbalized by the Patient): Straight or Heterosexual Spiritual care concerns: No Meds Home Medications and Allergies Home Medications Medication Instructions Recorded Confirmed Type mirabegron 50 mg tablet,extended 50 mg PO DAILY 07/23/22 09/07/24 History release 24 hr (Myrbetriq) tamsulosin 0.4 mg capsule 0.4 mg PO DAILY 07/23/22 09/07/24 History bedoyecta 1 tab-cap PO DAILY 09/07/24 09/07/24 History bicalutamide 50 mg tablet 150 mg PO DAILY 09/07/24 09/07/24 History calcitriol 0.5 mcg capsule 0.5 mcg PO DAILY 09/07/24 09/07/24 History calcium 200 mg (as 1 tablet PO DAILY 09/07/24 09/07/24 History citrate)-mins-D3 200 unit-K2 16 mcg-silicon tablet (ADVANCED Calcium) ciprofloxacin HCl 0.3 % eye drops 1 drp RIGHT EYE QID 09/07/24 09/07/24 History dexamethasone 4 mg tablet 4 mg PO DAILY 09/07/24 09/07/24 History docusate sodium 100 mg capsule 100 mg PO DAILY 09/07/24 09/07/24 History famotidine 20 mg tablet 20 mg PO BID 09/07/24 09/07/24 History ferrous sulfate 325 mg (65 mg 325 mg PO DAILY 09/07/24 09/07/24 History iron) tablet (FeroSul) furosemide 20 mg tablet 20 mg PO USEASDIRECTD 09/07/24 09/07/24 History meclizine 25 mg tablet 25 mg PO TID PRN Dizziness 09/07/24 09/07/24 History lspusrej-dkgsbylhb-obuzenicc 3.5 3 drp RIGHT EAR TID 09/07/24 09/07/24 History mg-10,000 unit/mL-1 % ear drops,susp omega-3 fatty acids 1,000 mg PO DAILY 09/07/24 09/07/24 History paroxetine HCl 10 mg tablet 10 mg PO DAILY 09/07/24 09/07/24 History tramadol 50 mg tablet 50 mg PO Q6H PRN Pain 09/07/24 09/07/24 History Allergies Allergy/AdvReac Type Severity Reaction Status Date / Time atorvastatin AdvReac Unknown Unknown Verified 09/06/24 15:15 Vital Signs Vital Signs - 24 hr 09/07/24 14:00 09/07/24 22:00 09/07/24 21:00 Temperature 35.9 C L 36.7 C Pulse Rate 73 86 Respiratory Rate 16 16 Blood Pressure 131/57 L 151/61 H Pulse Oximetry 94 92 Oxygen Delivery Room Air 09/08/24 06:00 Temperature 36.8 C Pulse Rate 89 Respiratory Rate 18 Blood Pressure 129/60 Pulse Oximetry 96 Oxygen Delivery Exam Narrative: examination revealed him to be ill-appearing somewhat lethargic his son at the bedside and patient is in no obvious acute distress, head normocephalic with no signs of trauma, eyes normal to confrontation, extraocular movements are full with no nystagmus, facial grimace symmetrical, tongue in the oral cavity with no fasciculation, abdomen is soft mildly distended, heart regular with no murmur, lungs with decreased breath sounds but no rhonchi or crepitations, neurologically he is easily arousable, follows instruction, speech of low volume but not dysarthric not dysphonic, pupils round regular, read of vision to finger threat stimuli intact in all 4 quadrants, extraocular movements are full with no nystagmus, facial grimace symmetrical, tongue in the oral cavity with no fasciculation, able to raise both upper extremities above the chest, but generally strength 4/5 in upper and lower extremities with very sluggish deep tendon reflexes and downgoing plantar responses, unable to perform finger to nose to finger or heel to knee to baxter. Results Labs 09/08/24 06:13 09/08/24 06:13 Labs: Short CBC 09/08/24 Range/Units 06:13 WBC 4.7 (4.5-10.0) K/mm3 Hgb 8.9 L (14.0-18.0) g/dL Hct 26.6 L (42.0-52.0) % Plt Count 98 L (150-375) k/mm3 BMP 09/08/24 06:13 Sodium 132 L Potassium 3.3 L Chloride 102 Carbon Dioxide 25 BUN 16 Creatinine 1.10 Glucose 88 Calcium 7.7 L Liver Function 09/08/24 Range/Units 06:13 Total Bilirubin 0.9 (0.2-1.3) mg/dL AST 31 (17-59) U/L ALT 14 (6-50) U/L Alkaline Phosphatase 61 (38-126) U/L Albumin 3.1 L (3.5-5.1) g/dL
--- NOTE | 2024-09-08 12:17 | PM.IMPN ---
Progress Note: A&P Assessment and Plan (1) Generalized weakness: Code(s): R53.1 - Weakness Status: Acute Assessment and Plan: CT chest, abd, and pelvis showing Moderate right and small left pleural effusions. Mediastinal lymphadenopathy. Chronic bone lesions concerning for metastatic disease. Bone lesions shown on yates scan from 08/2022 PT and OT eval and treat Heme/Onc consulted with plan to defer to primary oncologist regarding further treatment. 09/08: IV Fluids discontinued, Lasix given IV x1 and Echocardiogram ordered when crackles noted on exam and pleural effusions on imaging. (2) Anemia, macrocytic: Code(s): D53.9 - Nutritional anemia, unspecified Status: Acute Assessment and Plan: history of iron deficiency anemia 1 unit RBC transfused on 09/07 monitor for bleeding (3) Altered mental status: Code(s): R41.82 - Altered mental status, unspecified Status: Acute Assessment and Plan: CT head no acute process family patient has been getting more forgetful home, consult Neurology UA negative for UTI CT chest abdomen pelvis without any acute infectious process (4) Constipation: Code(s): K59.00 - Constipation, unspecified Status: Acute Assessment and Plan: suppository as needed MiraLax and senna as needed (5) Prostate cancer: Code(s): C61 - Malignant neoplasm of prostate Status: Acute Assessment and Plan: consult oncology continue home medication (6) Electrolyte abnormality: Code(s): E87.8 - Other disorders of electrolyte and fluid balance, not elsewhere classified Status: Acute Assessment and Plan: Potassium low, replaced oral Calcium remains low Sodium decreased but stable at 132 Daily labs ordered including Magnesium Plan VTE prophylaxis. SCDs; holding pharmacologic VTE Time Spent With Patient Time with patient: Greater than 35 minutes Subjective Date/time seen: 09/08/24 12:17 Interval history: 84 yo M with a Mhx significant for Prostate Ca w/Mets, ZACKERY, GERD brought to the hospital by family for due to worsening fatigue, malaise and anorexia; with no known modifying factors, his symptoms have been associated with an unstable gait, increased somnolence, confusion and poor execution of his ADLs. Today 09/08 son reports increased somnolence/obtunded. Ordered ABG to make sure no pCO2 retention. ABG unremarkable. RN reports patient awoke better and ate lunch. MBS ordered after RN concerned for swallow delay, no cough. Review of Systems Review of Systems: ROS unobtainable: Yes unobtainable due to mental status Exam Narrative: GENERAL: somnolent, NAD HEAD: Normocephalic, atraumatic. EYES: PERRLA and EOMI. ENT: Nares clear, no rhinorrhea or epistaxis. Mucous membranes dry NECK: Supple. CHEST: no respiratory distress. diminished lung sounds with crackles noted throughout HEART: Regular rate and rhythm. No murmur heard. Normal peripheral pulses. ABDOMEN: Soft, nontender, nondistended, normal active bowel sounds. EXTREMITIES: Normal range of motion. No edema. SKIN: Warm, dry, no rash. NEURO: No focal deficits. Obtunded, opens eyes to pain, mumbles 1-2 words then falls back asleep Objective Data Vital Signs Vital Signs: Vital Signs - 24 hr 09/07/24 14:00 09/07/24 22:00 09/07/24 21:00 Temperature 35.9 C L 36.7 C Pulse Rate 73 86 Respiratory Rate 16 16 Blood Pressure 131/57 L 151/61 H Pulse Oximetry 94 92 Oxygen Delivery Room Air 09/08/24 06:00 Temperature 36.8 C Pulse Rate 89 Respiratory Rate 18 Blood Pressure 129/60 Pulse Oximetry 96 Oxygen Delivery Intake/Output Intake/Output: Intake & Output 09/05/24 09/06/24 09/07/24 09/08/24 23:59 23:59 23:59 23:59 Intake Total 1600 630 0 Balance 1600 630 0 Meds/Results Medications: Active Medications Generic Name Dose Route Start Last Admin Trade Name Jeffq PRN Reason Stop Dose Admin Acetaminophen 650 mg 09/06/24 23:53 Acetaminophen 325 Mg Tablet PO Q4H PRN Mild Pain (1-3) or Fever Bicalutamide 50 mg 09/08/24 09:00 Bicalutamide (*Chemo) 50 Mg Tablet PO DAILY MARK Bisacodyl 10 mg 09/06/24 23:53 Bisacodyl 10 Mg Suppository RECTAL ONCE PRN Constipation Calcitriol 0.5 mcg 09/08/24 09:00 09/08/24 09:31 Calcitriol 0.25 Mcg Capsule PO 0.5 mcg DAILY MARK Administration Docusate Sodium 100 mg 09/07/24 17:00 09/08/24 09:25 Docusate Sodium 100 Mg Capsule PO 100 mg BID MARK Administration Famotidine 20 mg 09/07/24 17:00 09/08/24 09:32 Famotidine 20 Mg Tablet PO 20 mg BID MARK Administration Ferrous Sulfate 325 mg 09/08/24 09:00 09/08/24 09:28 Ferrous Sulfate [address] PO 325 mg DAILY MARK Administration Furosemide 20 mg 09/07/24 09:00 09/07/24 10:30 Furosemide 20 Mg Tablet PO 20 mg Q48H MARK Administration Meclizine HCl 25 mg 09/07/24 10:24 Meclizine Hcl 25 Mg Tablet PO TID PRN Dizziness Mirabegron 50 mg 09/08/24 09:00 09/08/24 09:29 Mirabegron 50 Mg Er Tablet PO 50 mg DAILY MARK Administration Paroxetine HCl 10 mg 09/08/24 09:00 09/08/24 09:31 Paroxetine 10 Mg Tablet PO 10 mg DAILY MARK Administration Perflutren Lipid Microsphere 0 ml 09/08/24 12:05 Perflutren Lipid Microspheres 1.5 Ml Vial Diluted To 10 Ml Total Volume IV PUSH 09/11/24 12:05 ONCE PRN adequate visualization Protocol Polyethylene Glycol 17 gm 09/08/24 09:00 09/08/24 09:25 Polyethylene Glycol 3350 17 Gm Powd.Pack PO 17 gm QAM MARK Administration Senna/Docusate Sodium 1 tab 09/07/24 21:00 09/07/24 21:07 Senna/Docusate Sodium Tablet PO 1 tab HS [facility] Administration Tamsulosin HCl 0.4 mg 09/07/24 21:00 09/07/24 21:07 Tamsulosin Hcl 0.4 Mg Capsule PO 0.4 mg HS [facility] Administration Tramadol HCl 50 mg 09/07/24 15:27 Tramadol Hcl (*Crx) 50 Mg Tablet PO Q6H PRN Moderate Pain Radiology Results: ITS Impressions Head CT 09/06/24 17:45 IMPRESSION: No acute intracranial process. Chest/Abdomen/Pelvis CT 09/06/24 18:01 IMPRESSION: Moderate right and small left pleural effusions. Mediastinal lymphadenopathy. Chronic bone lesions concerning for metastatic disease. Labs Labs: Laboratory Results - last 24 hr 09/07/24 09/08/24 19:10 06:13 WBC 4.7 RBC 2.53 L Hgb 8.9 L Hct 26.6 L MCV 105.1 H MCH 35.2 H MCHC 33.5 RDW 23.6 H Plt Count 98 L MPV 9.0 Immature Gran % (Auto) 2.4 H Neut % (Auto) 66.5 Lymph % (Auto) 22.8 Carbon % (Auto) 7.7 Eos % (Auto) 0.4 Baso % (Auto) 0.2 Lymph # (Auto) 1.06 Carbon # (Auto) 0.4 Eos # (Auto) 0.0 Baso # (Auto) 0.0 Abs Immat Gran (auto) 0.11 H Absolute Neuts (auto) 3.1 Absolute Nucleated RBC 0.050 H Nucleated RBC % 1.1 H Platelet Estimate Decreased % Immature Plt Fraction 1.2 Hypochromasia 1+ Anisocytosis 2+ Macrocytosis 1+ Ovalocytes 1+ Schistocytes None seen Sodium 132 L Potassium 3.3 L Chloride 102 Carbon Dioxide 25 Anion Gap 5 BUN 16 Creatinine 1.10 Estim Creat Clear Calc Not Reportable Estimated GFR > 60 Glucose 88 Calcium 7.7 L Iron 78 67 TIBC 218 L 205 L % Saturation 36 33 Ferritin > 2000.00 H Total Bilirubin 0.9 AST 31 ALT 14 Alkaline Phosphatase 61 Total Protein 6.0 L Albumin 3.1 L Vitamin B12 > 1000.0 H Folate 7.3 ABG ABG results: pH 7.485 pCO2 29.4 PaO2 62.5 HCO3 21.7 Attestation: I personally reviewed and interpreted this ABG as follows: Interpretation: Respiratory alkalosis with incomplete compensation Pulse Oximetry SpO2 results: 92-96% on room air Attestation: I personally reviewed and interpreted this pulse oximetry as follows: Interpretation: No need for supplemental oxygenation at this time Quality VTE Prophylaxis VTE prophylaxis: mechanical ordered Hospitalist MIPS Advance Care Plan I have confirmed that the patient's Advanced Care Plan is present, code status is documented, or surrogate decision maker is listed in patient medical record.: Yes Medication Reconciliation I have utilized all available resources to obtain, update and review the patients current medications (includes all prescriptions, OTC, herbals, cannabis, and nutritional supplements).: Yes
[2024-09-08] MEDS: FUROSEMIDE INJ 40 MG/4 ML VIAL IV PUSH (12:18)
[2024-09-08 12:26] LABS: Base Excess ABG -1.2 mEq/l (+/-2.0); Fractional Inspired Oxygen 21 %; HCO3 ABG 21.7 mEq/l (22.0-26.0); Oxygen Content ABG 12.3 %vol (16.0-22.0); Oxygen Saturation ABG 93.8 % (95.0-100.0); Oxyhemoglobin 91.5 % THb (90.0-100.0); PCO2 ABG 29.4 mmHg (35.0-45.0); PO2 ABG 62.5 mmHg (80.0-100.0); PO2 FiO2 Ratio Arterial Blood 2.98 %; Total Hemoglobin 9.5 g/dL (12.0-18.0); pH ABG 7.485 (7.350-7.450)
[2024-09-08 12:28] LABS: Device ROOM AIR; Modified Allen's Test Pass; Site Drawn LEFT RADIAL
[2024-09-08] MEDS: BICALUTAMIDE (*CHEMO) 50 MG TABLET PO (12:34)
[2024-09-08 13:22] LABS: NT Pro B Type Natriuretic Pept 540 pg/mL (19.9-100)
[2024-09-08 13:41] VITALS: BP 105/71; PULSE 95; RESP 16; TEMP 36.6; O2SAT 93
[2024-09-08] MEDS: ACETAMINOPHEN 325 MG TABLET 650 MG PO (16:56)
[2024-09-08 21:16] LABS: Glucose Point of Care 112 mg/dl (65-105)
[2024-09-08 21:29] VITALS: BP 110/65; PULSE 92; RESP 16; TEMP 36.4; O2SAT 94
[2024-09-09 06:00] VITALS: BP 109/66; PULSE 92; RESP 22; TEMP 36.3; O2SAT 96
[2024-09-09 07:02] LABS: Basophils Percent Auto 0.3 % (0.2-1.2); Eosinophils Percent Auto 1.2 % (0-4.4); Hematocrit 25.8 % (42.0-52.0); Hemoglobin 8.4 g/dL (14.0-18.0); Immature Granulocyte Absolute 0.06 K/mm3 (0.00-0.031); Immature Granulocyte Percent A 1.8 % (0-0.5); Immature Platelet Fraction Pct 1.2 % (0.9-11.2); Lymphocytes Absolute Auto 1.06 K/mm3 (0.9-3.2); Lymphocytes Percent Auto 31.9 % (18.3-44.2); Mean Corpuscular HGB Conc 32.6 g/dl (32-36); Mean Corpuscular Hemoglobin 34.7 pg (26-34); Mean Corpuscular Volume 106.6 fl (80-100); Monocytes Absolute Auto 0.2 K/mm3 (0.1-0.6); Monocytes Percent Auto 5.1 % (2.6-8.5); Neutrophils Percent Auto 59.7 % (45.5-73.1); Nucleated Red Blood Cells Perc 1.2 % (0.0-0.2); Platelet Count Result 94 k/mm3 (150-375); Red Blood Count 2.42 M/mm3 (4.6-6.20); Red Cell Distribution Width 22.8 % (11.5-14.5); White Blood Count 3.3 K/mm3 (4.5-10.0)
[2024-09-09 07:10] LABS: Alanine Aminotransferase 12 U/L (6-50); Alkaline Phosphatase 56 U/L (38-126); Anion Gap 5 mmol/L (4-12); Aspartate Amino Transferase 31 U/L (17-59); Bilirubin,Total 0.7 mg/dL (0.2-1.3); Blood Urea Nitrogen 18 mg/dL (9-20); Calcium 7.4 mg/dL (8.4-10.2); Carbon Dioxide 24 mmol/L (22-30); Chloride 107 mmol/L (98-107); Estimated Glomerular Filt Rate 53; Glucose 75 mg/dL (65-110); Magnesium 1.9 mg/dL (1.6-2.3); Potassium 3.5 mmol/L (3.4-5.0); Sodium 136 mmol/L (137-145)
[2024-09-09 07:41] LABS: Anisocytosis 2+; Hypochromasia 1+; Ovalocytes 1+; Platelet Estimate Decreased (Adequate); Schistocytes Rare; Tear Drop Cells 1+
[2024-09-09] MEDS: BICALUTAMIDE (*CHEMO) 50 MG TABLET PO (09:42)
[2024-09-09] MEDS: calcitrioL 0.25 MCG CAPSULE 0.5 MCG PO (09:42)
[2024-09-09] MEDS: FAMOTIDINE 20 MG TABLET PO ×2 (09:42→16:43)
[2024-09-09] MEDS: MIRABEGRON 50 MG ER TABLET PO (09:43)
[2024-09-09] MEDS: FERROUS SULFATE 325 MG TABLET DR PO (09:43)
[2024-09-09] MEDS: PARoxetine 10 MG TABLET PO (09:43)
[2024-09-09] MEDS: DOCUSATE SODIUM 100 MG CAPSULE PO ×2 (09:43→16:43)
[2024-09-09] MEDS: polyethylene glycoL 3350 17 GM POWD.PACK PO (09:44)
[2024-09-09] MEDS: NYSTATIN 100,000 UNITS/ML SUSP 5 ML ORAL.SUSP PO ×3 (12:01→20:21)
--- NOTE | 2024-09-09 12:09 | P.PNIM_ITS ---
Progress Note: A&P Assessment and Plan (1) Generalized weakness: Code(s): R53.1 - Weakness Status: Acute Assessment and Plan: * CT chest, abd, and pelvis showing Moderate right and small left pleural effusions. Mediastinal lymphadenopathy. Chronic bone lesions concerning for metastatic disease. Bone lesions shown on yates scan from 08/2022 * PT and OT eval and treat * Heme/Onc consulted with plan to defer to primary oncologist regarding further treatment. * 09/08: IV Fluids discontinued, Lasix given IV x1 and Echocardiogram ordered when crackles noted on exam and pleural effusions on imaging. Echo showed: Summary 1. Complete two-dimensional, color flow and Doppler transthoracic echocardiogram is performed. 2. Left ventricular chamber dimension is normal. 3. Left ventricular systolic function is normal, estimated at 65-70%. 4. There is no increased left ventricular wall thickness. 5. The left ventricular diastolic function is grade I diastolic dysfunction. 6. Right ventricular chamber dimension is mildly enlarged. 7. Left atrial chamber dimension is mildly enlarged. 8. There is mild tricuspid valve regurgitation. 9. There is small pericardial effusion. 10. The pericardium appears increased echogenicity of the pericardium. - 09/09 Patient feeling better today, lungs diminished. (2) Anemia, macrocytic: Code(s): D53.9 - Nutritional anemia, unspecified Status: Acute Assessment and Plan: * history of iron deficiency anemia * 1 unit RBC transfused on 09/07 * monitor for bleeding * Hemoglobin 8.4 (3) Altered mental status: Code(s): R41.82 - Altered mental status, unspecified Status: Acute Assessment and Plan: * CT head no acute process * family patient has been getting more forgetful home, consult Neurology * UA negative for UTI * CT chest abdomen pelvis without any acute infectious process (4) Constipation: Code(s): K59.00 - Constipation, unspecified Status: Acute Assessment and Plan: * suppository as needed * MiraLax and senna as needed (5) Prostate cancer: Code(s): C61 - Malignant neoplasm of prostate Status: Acute Assessment and Plan: * consult oncology * continue home medication (6) Electrolyte abnormality: Code(s): E87.8 - Other disorders of electrolyte and fluid balance, not elsewhere classified Status: Acute Assessment and Plan: * Calcium remains low at 7.4 * Sodium decreased but stable at 136 * Daily labs ordered including Magnesium Plan VTE prophylaxis. SCDs; holding pharmacologic VTE Subjective Date/time seen: 09/09/24 12:09 Interval history: Patient sitting up in chair and son at bedside. Son reports that patient got up with therapy and walked to the bathroom. Patient denies pain or shortness of breath. Patient reports feeling better. Modified barium swallow recommendation Pureed with thin liquid. Review of Systems Review of Systems: All systems reviewed & are unremarkable except as noted in HPI and below Exam Const: General: comfortable and no acute distress Eyes: Sclera: sclerae normal Resp: Effort & Inspection: normal respiratory effort Auscultation: diminished lung sounds Cardio: Rate: regular rate Rhythm: regular rhythm GI: GI Palp: Yes Soft to palpation Auscultation: normal bowel sounds Skin: General skin exam: no rashes or lesions noted Neuro: Speech: normal speech Extrem: General: no pedal edema Psych: Affect: normal affect Other: Memory loss Objective Data Vital Signs Vital Signs: Vital Signs - 24 hr 09/08/24 13:41 09/08/24 21:29 09/08/24 20:00 Temperature 97.8 F 97.6 F Pulse Rate 95 92 Respiratory Rate 16 16 Blood Pressure 105/71 110/65 Pulse Oximetry 93 94 Oxygen Delivery Room Air 09/09/24 06:00 09/09/24 09:14 09/09/24 09:40 Temperature 97.4 F L Pulse Rate 92 Respiratory Rate 22 H Blood Pressure 109/66 Pulse Oximetry 96 Oxygen Delivery Room Air Room Air 09/09/24 11:26 Temperature Pulse Rate Respiratory Rate Blood Pressure Pulse Oximetry Oxygen Delivery Room Air Intake/Output Intake/Output: Intake & Output 09/06/24 09/07/24 09/08/24 09/09/24 23:59 23:59 23:59 23:59 Intake Total 1600 630 0 240 Output Total 500 350 Balance 1600 630 -500 -110 Meds/Results Medications: Active Medications Generic Name Dose Route Start Last Admin Trade Name Freq PRN Reason Stop Dose Admin Acetaminophen 650 mg 09/06/24 23:53 09/08/24 16:56 Acetaminophen 325 Mg Tablet PO 650 mg Q4H PRN Administration Mild Pain (1-3) or Fever Bicalutamide 50 mg 09/08/24 09:00 09/09/24 09:42 Bicalutamide (*Chemo) 50 Mg Tablet PO 50 mg DAILY MARK Administration Bisacodyl 10 mg 09/06/24 23:53 Bisacodyl 10 Mg Suppository RECTAL ONCE PRN Constipation Calcitriol 0.5 mcg 09/08/24 09:00 09/09/24 09:42 Calcitriol 0.25 Mcg Capsule PO 0.5 mcg DAILY MARK Administration Docusate Sodium 100 mg 09/07/24 17:00 09/09/24 09:43 Docusate Sodium 100 Mg Capsule PO 100 mg BID MARK Administration Famotidine 20 mg 09/07/24 17:00 09/09/24 09:42 Famotidine 20 Mg Tablet PO 20 mg BID MARK Administration Ferrous Sulfate 325 mg 09/08/24 09:00 09/09/24 09:43 Ferrous Sulfate [address] PO 325 mg DAILY MARK Administration Furosemide 20 mg 09/07/24 09:00 09/07/24 10:30 Furosemide 20 Mg Tablet PO 20 mg Q48H MARK Administration Meclizine HCl 25 mg 09/07/24 10:24 Meclizine Hcl 25 Mg Tablet PO TID PRN Dizziness Mirabegron 50 mg 09/08/24 09:00 09/09/24 09:43 Mirabegron 50 Mg Er Tablet PO 50 mg DAILY MARK Administration Nystatin 5 ml 09/09/24 13:00 09/09/24 12:01 Nystatin 100,000 Units/Ml Susp 5 Ml Oral.Susp PO 5 ml QID MARK Administration Paroxetine HCl 10 mg 09/08/24 09:00 09/09/24 09:43 Paroxetine 10 Mg Tablet PO 10 mg DAILY MARK Administration Perflutren Lipid Microsphere 0 ml 09/08/24 12:05 Perflutren Lipid Microspheres 1.5 Ml Vial Diluted To 10 Ml Total Volume IV PUSH 09/11/24 12:05 ONCE PRN adequate visualization Protocol Polyethylene Glycol 17 gm 09/08/24 09:00 09/09/24 09:44 Polyethylene Glycol 3350 17 Gm Powd.Pack PO 17 gm QAM MARK Administration Senna/Docusate Sodium 1 tab 09/07/24 21:00 09/08/24 20:13 Senna/Docusate Sodium Tablet PO Not Given HS MARK Tamsulosin HCl 0.4 mg 09/07/24 21:00 09/08/24 20:13 Tamsulosin Hcl 0.4 Mg Capsule PO Not Given HS MARK Tramadol HCl 50 mg 09/07/24 15:27 Tramadol Hcl (*Crx) 50 Mg Tablet PO Q6H PRN Moderate Pain Radiology Results: ITS Impressions Head CT 09/06/24 17:45 IMPRESSION: No acute intracranial process. Chest/Abdomen/Pelvis CT 09/06/24 18:01 IMPRESSION: Moderate right and small left pleural effusions. Mediastinal lymphadenopathy. Chronic bone lesions concerning for metastatic disease. Modified Barium Swallow 09/09/24 09:55 IMPRESSION: 1. No laryngeal penetration or aspiration. 2. Please refer to the speech therapy report for recommendations. Labs Labs: Laboratory Results - last 24 hr 09/08/24 09/08/24 09/08/24 06:11 12:22 20:58 WBC RBC Hgb Hct MCV MCH MCHC RDW Plt Count MPV Immature Gran % (Auto) Neut % (Auto) Lymph % (Auto) [place] % (Auto) Eos % (Auto) Baso % (Auto) Lymph # (Auto) [place] # (Auto) Eos # (Auto) Baso # (Auto) Abs Immat Gran (auto) Absolute Neuts (auto) Absolute Nucleated RBC Nucleated RBC % Platelet Estimate % Immature Plt Fraction Hypochromasia Anisocytosis Tear Drop Cells Ovalocytes Schistocytes Puncture Site Left radial ABG pH 7.485 H ABG pCO2 29.4 L ABG pO2 62.5 L ABG PO2/FiO2 Ratio 2.98 ABG HCO3 21.7 L ABG O2 Saturation 93.8 L ABG O2 Content 12.3 L ABG Base Excess -1.2 A-a Gradient 52.0 Oxyhemoglobin 91.5 Total Hemoglobin 9.5 L O2 Delivery Device Room air O2 Liters/Min Not Reportable FiO2 21 Sodium Potassium Chloride Carbon Dioxide Anion Gap BUN Creatinine Estim Creat Clear Calc Estimated GFR Glucose POC Capillary Glucose 112 H Calcium Magnesium Total Bilirubin AST ALT Alkaline Phosphatase NT-Pro-B Natriuret Pep 540 H Total Protein Albumin 09/09/24 06:31 WBC 3.3 L RBC 2.42 L Hgb 8.4 L Hct 25.8 L MCV 106.6 H MCH 34.7 H MCHC 32.6 RDW 22.8 H Plt Count 94 L MPV 9.0 Immature Gran % (Auto) 1.8 H Neut % (Auto) 59.7 Lymph % (Auto) 31.9 [place] % (Auto) 5.1 Eos % (Auto) 1.2 Baso % (Auto) 0.3 Lymph # (Auto) 1.06 [place] # (Auto) 0.2 Eos # (Auto) 0.0 Baso # (Auto) 0.0 Abs Immat Gran (auto) 0.06 H Absolute Neuts (auto) 2.0 Absolute Nucleated RBC 0.040 H Nucleated RBC % 1.2 H Platelet Estimate Decreased % Immature Plt Fraction 1.2 Hypochromasia 1+ Anisocytosis 2+ Tear Drop Cells 1+ Ovalocytes 1+ Schistocytes Rare Puncture Site ABG pH ABG pCO2 ABG pO2 ABG PO2/FiO2 Ratio ABG HCO3 ABG O2 Saturation ABG O2 Content ABG Base Excess A-a Gradient Oxyhemoglobin Total Hemoglobin O2 Delivery Device O2 Liters/Min FiO2 Sodium 136 L Potassium 3.5 Chloride 107 Carbon Dioxide 24 Anion Gap 5 BUN 18 Creatinine 1.30 Estim Creat Clear Calc Not Reportable Estimated GFR 53 L Glucose 75 POC Capillary Glucose Calcium 7.4 L Magnesium 1.9 Total Bilirubin 0.7 AST 31 ALT 12 Alkaline Phosphatase 56 NT-Pro-B Natriuret Pep Total Protein 6.0 L Albumin 3.0 L Quality VTE Prophylaxis VTE prophylaxis: mechanical ordered
[2024-09-09 14:00] VITALS: BP 118/55; PULSE 95; RESP 18; TEMP 36.2; O2SAT 91
[2024-09-09] MEDS: SENNA/DOCUSATE SODIUM TABLET 1 TAB PO (20:21)
[2024-09-09] MEDS: TAMSULOSIN HCL 0.4 MG CAPSULE PO (20:21)
[2024-09-09 21:05] VITALS: BP 126/51; PULSE 95; RESP 20; TEMP 36.2; O2SAT 93
[2024-09-10] VITALS (7 sets, daily range): BP systolic 82–122; BP diastolic 45–54; PULSE 92–103; RESP 16–20; TEMP 36.3–37.4; O2SAT 82–96
[2024-09-10 07:59] LABS: Hematocrit 27.3 % (42.0-52.0); Hemoglobin 9.1 g/dL (14.0-18.0); Immature Platelet Fraction Pct 1.2 % (0.9-11.2); Mean Corpuscular HGB Conc 33.3 g/dl (32-36); Mean Corpuscular Hemoglobin 35.7 pg (26-34); Mean Corpuscular Volume 107.1 fl (80-100); Mean Platelet Volume 8.8 fl (7.4-10.4); Platelet Count Result 89 k/mm3 (150-375); Red Blood Count 2.55 M/mm3 (4.6-6.20); Red Cell Distribution Width 22.3 % (11.5-14.5); White Blood Count 2.5 K/mm3 (4.5-10.0)
[2024-09-10 08:28] LABS: Alanine Aminotransferase 13 U/L (6-50); Albumin Level 2.9 g/dL (3.5-5.1); Alkaline Phosphatase 62 U/L (38-126); Anion Gap 5 mmol/L (4-12); Aspartate Amino Transferase 39 U/L (17-59); Bilirubin,Total 0.9 mg/dL (0.2-1.3); Blood Urea Nitrogen 17 mg/dL (9-20); Calcium 7.4 mg/dL (8.4-10.2); Carbon Dioxide 25 mmol/L (22-30); Chloride 107 mmol/L (98-107); Estimated Glomerular Filt Rate 45; Glucose 78 mg/dL (65-110); Magnesium 1.9 mg/dL (1.6-2.3); Potassium 3.4 mmol/L (3.4-5.0); Sodium 137 mmol/L (137-145)
[2024-09-10 09:21] LABS: Band Neutrophils Percent 44 % (0-6); Lymphocytes Absolute Manual 0.22 K/mm3 (1.1-4.5); Metamyelocytes Percent 2 %; Monocytes Absolute Manual 0.17 K/mm3 (0.1-0.90); Monocytes Percent Manual 7 % (3-9); Neutrophils Absolute Manual 2.05 K/mm3 (1.3-6.7); Neutrophils Percent Manual 38 % (46-73); Total Cells Counted 100
[2024-09-10 09:22] LABS: Anisocytosis 1+; Hypochromasia 1+; Nucleated Red Blood Cells 2 %; Platelet Estimate Decreased (Adequate); Schistocytes None Seen
[2024-09-10] MEDS: SODIUM CHLORIDE 0.9% IV 1,000 ML 75 ML IV CONT ×2 (12:05→17:17)
--- NOTE | 2024-09-10 12:50 | P.PNIM_ITS ---
Progress Note: A&P Assessment and Plan (1) Generalized weakness: Code(s): R53.1 - Weakness Status: Acute Assessment and Plan: * CT chest, abd, and pelvis showing Moderate right and small left pleural effusions. Mediastinal lymphadenopathy. Chronic bone lesions concerning for metastatic disease. Bone lesions shown on yates scan from 08/2022 * PT and OT eval and treat * Heme/Onc consulted with plan to defer to primary oncologist regarding further treatment. * 09/08: IV Fluids discontinued, Lasix given IV x1 and Echocardiogram ordered when crackles noted on exam and pleural effusions on imaging. Echo showed: Summary 1. Complete two-dimensional, color flow and Doppler transthoracic echocardiogram is performed. 2. Left ventricular chamber dimension is normal. 3. Left ventricular systolic function is normal, estimated at 65-70%. 4. There is no increased left ventricular wall thickness. 5. The left ventricular diastolic function is grade I diastolic dysfunction. 6. Right ventricular chamber dimension is mildly enlarged. 7. Left atrial chamber dimension is mildly enlarged. 8. There is mild tricuspid valve regurgitation. 9. There is small pericardial effusion. 10. The pericardium appears increased echogenicity of the pericardium. - 09/09 Patient feeling better today, lungs diminished. -09/10 drowsy. Started on NS @ 75 ml/hr. (2) Pleural effusion: Code(s): J90 - Pleural effusion, not elsewhere classified Status: Acute Assessment and Plan: * Patient requiring increased oxygen at 4 liters nasal cannula with Sa02 93% * Chest X-ray showed Moderate-sized right pleural effusion with nodular pleural thickening, consistent with metastatic disease. * US guided thoracentesis done. 1,000 ml of clear yellow fluid removed. Pleural fluid sent for further testing. (3) Anemia, macrocytic: Code(s): D53.9 - Nutritional anemia, unspecified Status: Acute Assessment and Plan: * history of iron deficiency anemia * 1 unit RBC transfused on 09/07 * monitor for bleeding * Hemoglobin 9.1 today (4) Altered mental status: Code(s): R41.82 - Altered mental status, unspecified Status: Acute Assessment and Plan: * CT head no acute process * family patient has been getting more forgetful home, consult Neurology * UA negative for UTI * CT chest abdomen pelvis without any acute infectious process * 09/10 drowsy today. Started on NS @ 75 ml/hr. (5) Constipation: Code(s): K59.00 - Constipation, unspecified Status: Acute Assessment and Plan: * KUB showed no dilated loops of bowel. There is a moderate volume of stool in the colon. Nonobstructive bowel gas pattern. * suppository as needed * MiraLax and senna as needed (6) Prostate cancer: Code(s): C61 - Malignant neoplasm of prostate Status: Acute Assessment and Plan: * consult oncology * continue home medication (7) Electrolyte abnormality: Code(s): E87.8 - Other disorders of electrolyte and fluid balance, not elsewhere classified Status: Acute Assessment and Plan: * Calcium remains low at 7.4 * Sodium decreased but stable at 137 * Daily labs ordered including Magnesium Plan VTE prophylaxis. SCDs; holding pharmacologic VTE Subjective Date/time seen: 09/10/24 12:50 Interval history: Family at bedside. Daughter Mellissa ([phone]) would like patient transferred to [facility] for further evaluation of metastatic cancer. Called bed placement and spoke with Margot Frost spoke to patients Oncologist Dr. Gipson and he agreed on admission but he is at the [facility]. Dr. Gipson agreed for patient to go to [facility] where he can view records, Oncologist category consultant at [facility] today Dr. Pelletier has accepted patient. Margot unsure when patient will get a bed, it may be a couple of days. Family concerned because patient more sleepy today. Daughter reports that sister stated that patient was restless overnight. Daughter and son report patient occasionally wakes up stating that his head hurts. Review of Systems Review of Systems: All systems reviewed & are unremarkable except as noted in HPI and below Exam Const: General: comfortable and no acute distress Eyes: Sclera: sclerae normal Resp: Auscultation: diminished lung sounds Cardio: Rate: regular rate Rhythm: regular rhythm GI: Inspection: distended GI Palp: Yes Soft to palpation Other: hypoactive bowel sounds. Skin: General skin exam: no rashes or lesions noted Neuro: Speech: normal speech Other: Drowsy. Awakes to verbal at times. Restless overnight per family. Extrem: General: no pedal edema Psych: Other: Memory loss. Objective Data Vital Signs Vital Signs: Vital Signs - 24 hr 09/09/24 14:00 09/09/24 21:05 09/09/24 20:00 Temperature 97.2 F L 97.2 F L Pulse Rate 95 95 Respiratory Rate 18 20 Blood Pressure 118/55 L 126/51 L Pulse Oximetry 91 93 Oxygen Delivery Room Air Oxygen Flow Rate 09/10/24 05:47 09/10/24 08:45 09/10/24 08:52 Temperature 97.4 F L Pulse Rate 92 Respiratory Rate 20 Blood Pressure 122/54 L Pulse Oximetry 94 82 L 93 Oxygen Delivery Room Air Nasal Cannula Oxygen Flow Rate 4 09/10/24 08:00 Temperature Pulse Rate 92 Respiratory Rate 20 Blood Pressure Pulse Oximetry 93 Oxygen Delivery Nasal Cannula Oxygen Flow Rate 4 Intake/Output Intake/Output: Intake & Output 09/07/24 09/08/24 09/09/24 09/10/24 23:59 23:59 23:59 23:59 Intake Total 630 0 720 240 Output Total 500 350 750 Balance 630 -500 370 -510 Meds/Results Medications: Active Medications Generic Name Dose Route Start Last Admin Trade Name Freq PRN Reason Stop Dose Admin Acetaminophen 650 mg 09/06/24 23:53 09/08/24 16:56 Acetaminophen 325 Mg Tablet PO 650 mg Q4H PRN Administration Mild Pain (1-3) or Fever Acetaminophen 650 mg 09/10/24 12:38 Acetaminophen 650 Mg Suppository RECTAL Q6H PRN Mild Pain (1-3) or Fever Bicalutamide 50 mg 09/08/24 09:00 09/10/24 09:56 Bicalutamide (*Chemo) 50 Mg Tablet PO Not Given DAILY MARK Bisacodyl 10 mg 09/06/24 23:53 Bisacodyl 10 Mg Suppository RECTAL ONCE PRN Constipation Calcitriol 0.5 mcg 09/08/24 09:00 09/10/24 09:57 Calcitriol 0.25 Mcg Capsule PO Not Given DAILY MARK Docusate Sodium 100 mg 09/07/24 17:00 09/10/24 09:57 Docusate Sodium 100 Mg Capsule PO Not Given BID MARK Famotidine 20 mg 09/07/24 17:00 09/10/24 09:57 Famotidine 20 Mg Tablet PO Not Given BID MARK Ferrous Sulfate 325 mg 09/08/24 09:00 09/10/24 09:57 Ferrous Sulfate [address] PO Not Given DAILY MARK Furosemide 20 mg 09/07/24 09:00 09/07/24 10:30 Furosemide 20 Mg Tablet PO 20 mg Q48H MARK Administration Sodium Chloride 1,000 mls @ 75 mls/hr 09/10/24 12:00 09/10/24 12:05 Normal Saline Iv IV CONT 75 mls/hr .[id number] MARK Administration Meclizine HCl 25 mg 09/07/24 10:24 Meclizine Hcl 25 Mg Tablet PO TID PRN Dizziness Mirabegron 50 mg 09/08/24 09:00 09/10/24 09:57 Mirabegron 50 Mg Er Tablet PO Not Given DAILY MARK Nystatin 5 ml 09/09/24 13:00 09/10/24 12:12 Nystatin 100,000 Units/Ml Susp 5 Ml Oral.Susp PO Not Given QID MARK Paroxetine HCl 10 mg 09/08/24 09:00 09/10/24 09:57 Paroxetine 10 Mg Tablet PO Not Given DAILY MARK Perflutren Lipid Microsphere 0 ml 09/08/24 12:05 Perflutren Lipid Microspheres 1.5 Ml Vial Diluted To 10 Ml Total Volume IV PUSH 09/11/24 12:05 ONCE PRN adequate visualization Protocol Polyethylene Glycol 17 gm 09/08/24 09:00 09/10/24 09:58 Polyethylene Glycol 3350 17 Gm Powd.Pack PO Not Given QAM MARK Senna/Docusate Sodium 1 tab 09/07/24 21:00 09/09/24 20:21 Senna/Docusate Sodium Tablet PO 1 tab HS MAKR Administration Tamsulosin HCl 0.4 mg 09/07/24 21:00 09/09/24 20:21 Tamsulosin Hcl 0.4 Mg Capsule PO 0.4 mg HS MARK Administration Tramadol HCl 50 mg 09/07/24 15:27 Tramadol Hcl (*Crx) 50 Mg Tablet PO Q6H PRN Moderate Pain Radiology Results: ITS Impressions Head CT 09/06/24 17:45 IMPRESSION: No acute intracranial process. Chest/Abdomen/Pelvis CT 09/06/24 18:01 IMPRESSION: Moderate right and small left pleural effusions. Mediastinal lymphadenopathy. Chronic bone lesions concerning for metastatic disease. Modified Barium Swallow 09/09/24 09:55 IMPRESSION: 1. No laryngeal penetration or aspiration. 2. Please refer to the speech therapy report for recommendations. Labs Labs: Laboratory Results - last 24 hr 09/10/24 07:18 WBC 2.5 L RBC 2.55 L Hgb 9.1 L Hct 27.3 L MCV 107.1 H MCH 35.7 H MCHC 33.3 RDW 22.3 H Plt Count 89 L MPV 8.8 Immature Gran % (Auto) Not Reportable Neut % (Auto) Not Reportable Lymph % (Auto) Not Reportable [place] % (Auto) Not Reportable Eos % (Auto) Not Reportable Baso % (Auto) Not Reportable Lymph # (Auto) Not Reportable [place] # (Auto) Not Reportable Eos # (Auto) Not Reportable Baso # (Auto) Not Reportable Abs Immat Gran (auto) Not Reportable Absolute Neuts (auto) Not Reportable Absolute Nucleated RBC Not Reportable Total Counted 100 Neutrophils % (Manual) 38 L Band Neutrophils % 44 H Lymphocytes % (Manual) 9.0 L Monocytes % (Manual) 7 Metamyelocytes % 2 Nucleated RBC % Not Reportable Abs Neuts (Manual) 2.05 Abs Lymphs (Manual) 0.22 L Abs Monocytes (Manual) 0.17 Nucleated RBCs 2 Platelet Estimate Decreased % Immature Plt Fraction 1.2 Hypochromasia 1+ Anisocytosis 1+ Schistocytes None seen Sodium 137 Potassium 3.4 Chloride 107 Carbon Dioxide 25 Anion Gap 5 BUN 17 Creatinine 1.50 H Estim Creat Clear Calc Not Reportable Estimated GFR 45 L Glucose 78 Calcium 7.4 L Magnesium 1.9 Total Bilirubin 0.9 AST 39 ALT 13 Alkaline Phosphatase 62 Total Protein 6.0 L Albumin 2.9 L Quality VTE Prophylaxis VTE prophylaxis: mechanical ordered
[2024-09-10] MEDS: ACETAMINOPHEN 650 MG SUPPOSITORY RECTAL ×2 (13:15→21:03)
[2024-09-10 13:26] LABS: Alveolar/Arterial O2 Gradient 159.8 mmHg; Base Excess ABG -3.1 mEq/l (+/-2.0); Fractional Inspired Oxygen 36 %; HCO3 ABG 19.8 mEq/l (22.0-26.0); Oxygen Content ABG 11.7 %vol (16.0-22.0); Oxygen Saturation ABG 94.2 % (95.0-100.0); Oxyhemoglobin 91.8 % THb (90.0-100.0); PCO2 ABG 27.8 mmHg (35.0-45.0); PO2 ABG 64.6 mmHg (80.0-100.0); PO2 FiO2 Ratio Arterial Blood 1.79 %; pH ABG 7.471 (7.350-7.450)
[2024-09-10 13:28] LABS: Device NASAL CANNULA; Site Drawn RIGHT RADIAL
[2024-09-10 15:21] LABS: INR 1.4; Prothrombin Time 17.9 Seconds (11.1-14.7)
[2024-09-10 15:24] LABS: Triglycerides 123 mg/dL (<150)
[2024-09-10 15:25] LABS: Albumin Level 2.9 g/dL (3.5-5.1); Amylase 52 U/L (30-110); Bilirubin,Total 0.9 mg/dL (0.2-1.3); Cholesterol 187 mg/dL (0-200); Glucose 73 mg/dL (65-110); Lactate Dehydrogenase 506 U/L (120-246)
--- NOTE | 2024-09-10 15:25 | PCPTNOTE ---
The patient treatment was not able to be completed due to patient out of room for procedure. Will plan to continue treatment per plan of care.
--- NOTE | 2024-09-10 15:39 | PCOTNOTE ---
Patient out of the room at this time. Patient down having a procedure
[2024-09-10 16:34] LABS: Pleural fluid source Pleural fluid
[2024-09-10 16:35] LABS: Appearance Pleural Fluid Hazy (Clear); Color Pleural Fluid Yellow (Colorless); Nucleated Cell Pleural Fluid 1138 /uL (0-1000)
[2024-09-10 16:36] LABS: Lymphocytes Pleural Fluid 13 %; Macrophages Pleural Fluid 2 %; Mesothelial Cells Pleural Flui 5 %; Monocytes Pleural Fluid 8 %; Neutrophils Pleural Fluid 72 % (0-25); RBC Pleural Fluid < 2000 /uL (0-10000)
[2024-09-10 17:15] LABS: pH Pleural Fluid > 7.500 (7.210-7.500)
[2024-09-10] MEDS: BISACODYL 10 MG SUPPOSITORY RECTAL ×2 (21:03)
[2024-09-11] VITALS (12 sets, daily range): BP systolic 55–101; BP diastolic 35–48; PULSE 101–108; RESP 20–30; TEMP 36.3–39.3; O2SAT 83–98; BMI 28.7
[2024-09-11 06:39] LABS: Hematocrit 25.2 % (42.0-52.0); Hemoglobin 8.4 g/dL (14.0-18.0); Immature Platelet Fraction Pct 1.2 % (0.9-11.2); Mean Corpuscular HGB Conc 33.3 g/dl (32-36); Mean Corpuscular Hemoglobin 35.9 pg (26-34); Mean Corpuscular Volume 107.7 fl (80-100); Mean Platelet Volume 8.8 fl (7.4-10.4); Platelet Count Result 79 k/mm3 (150-375); Red Blood Count 2.34 M/mm3 (4.6-6.20); Red Cell Distribution Width 22.5 % (11.5-14.5)
[2024-09-11 06:57] LABS: Alanine Aminotransferase 14 U/L (6-50); Albumin Level 2.7 g/dL (3.5-5.1); Alkaline Phosphatase 56 U/L (38-126); Anion Gap 8 mmol/L (4-12); Aspartate Amino Transferase 43 U/L (17-59); Bilirubin,Total 0.8 mg/dL (0.2-1.3); Blood Urea Nitrogen 26 mg/dL (9-20); Calcium 6.7 mg/dL (8.4-10.2); Carbon Dioxide 21 mmol/L (22-30); Chloride 111 mmol/L (98-107); Estimated Glomerular Filt Rate 30; Glucose 42 mg/dL (65-110); Magnesium 1.8 mg/dL (1.6-2.3); Potassium 3.6 mmol/L (3.4-5.0); Sodium 140 mmol/L (137-145)
[2024-09-11] MEDS: DEXTROSE 50% 25 GM/50 ML SYRINGE IV PUSH ×2 (07:01→13:41)
[2024-09-11 07:27] LABS: White Blood Count 0.8 K/mm3 (4.5-10.0)
[2024-09-11 07:32] LABS: Anisocytosis 1+; Band Neutrophils Percent 18 % (0-6); Hypochromasia 1+; Lymphocytes Percent Manual 13 % (18-44); Monocytes Absolute Manual 0.05 K/mm3 (0.1-0.90); Monocytes Percent Manual 7 % (3-9); Neutrophils Absolute Manual 0.24 K/mm3 (1.3-6.7); Neutrophils Percent Manual 12 % (46-73); Platelet Estimate Decreased (Adequate); Schistocytes None Seen; Total Cells Counted 50
[2024-09-11 07:41] LABS: Glucose Point of Care 45 mg/dl (65-105)
[2024-09-11 07:44] LABS: Glucose Point of Care 149 mg/dl (65-105)
[2024-09-11] MEDS: ACETAMINOPHEN 650 MG SUPPOSITORY RECTAL (08:57)
[2024-09-11] MEDS: FAMOTIDINE 20 MG TABLET PO (08:57)
[2024-09-11] MEDS: NYSTATIN 100,000 UNITS/ML SUSP 5 ML ORAL.SUSP PO (08:57)
[2024-09-11] MEDS: DOCUSATE SODIUM 100 MG CAPSULE PO (08:57)
[2024-09-11] MEDS: CALCIUM GLUC 1,000 MG/NS 50 ML 1,000 MG/50 ML BAG 100 MG IVPB (08:58)
--- NOTE | 2024-09-11 09:59 | P.PNIM_ITS ---
Progress Note: A&P Assessment and Plan (1) Sepsis due to pneumonia: Code(s): J18.9 - Pneumonia, unspecified organism; A41.9 - Sepsis, unspecified organism Status: Acute Assessment and Plan: * SIRS criteria met based on tachycardia and fever. * Chest X-ray showed: IMPRESSION: 1. Worsened airspace opacities in the mid and lower lung zones, consistent with atelectasis versus pneumonia. 2. Worsened small right pleural effusion. 3. Sclerotic lesions of bone, consistent with metastatic disease. * Blood cultures and urine culture sent. * Patient started on IV antibiotics Doxycycline, Zosyn, and Vancomycin. * Family this afternoon changed patient to comfort measures. (2) Hypotension: Code(s): I95.9 - Hypotension, unspecified Status: Acute Assessment and Plan: * Blood pressure dropped to 61/42 * Family did not want patient to be intubated and changed patient to comfort measures this afternoon. (3) Generalized weakness: Code(s): R53.1 - Weakness Status: Acute Assessment and Plan: * CT chest, abd, and pelvis showing Moderate right and small left pleural effusions. Mediastinal lymphadenopathy. Chronic bone lesions concerning for metastatic disease. Bone lesions shown on yates scan from 08/2022 * PT and OT eval and treat * Heme/Onc consulted with plan to defer to primary oncologist regarding further treatment. * 09/08: IV Fluids discontinued, Lasix given IV x1 and Echocardiogram ordered when crackles noted on exam and pleural effusions on imaging. Echo showed: Summary 1. Complete two-dimensional, color flow and Doppler transthoracic echocardiogram is performed. 2. Left ventricular chamber dimension is normal. 3. Left ventricular systolic function is normal, estimated at 65-70%. 4. There is no increased left ventricular wall thickness. 5. The left ventricular diastolic function is grade I diastolic dysfunction. 6. Right ventricular chamber dimension is mildly enlarged. 7. Left atrial chamber dimension is mildly enlarged. 8. There is mild tricuspid valve regurgitation. 9. There is small pericardial effusion. 10. The pericardium appears increased echogenicity of the pericardium. - 09/09 Patient feeling better today, lungs diminished. -09/10 drowsy. Started on NS @ 75 ml/hr. -09/11 changed to comfort measures. (4) Pleural effusion: Code(s): J90 - Pleural effusion, not elsewhere classified Status: Acute Assessment and Plan: * Patient requiring increased oxygen at 4 liters nasal cannula with Sa02 93% * Chest X-ray showed Moderate-sized right pleural effusion with nodular pleural thickening, consistent with metastatic disease. * 09/10 US guided thoracentesis done. 1,000 ml of clear yellow fluid removed. Pleural fluid sent for further testing. * -09/11 changed to comfort measures. (5) Anemia, macrocytic: Code(s): D53.9 - Nutritional anemia, unspecified Status: Acute Assessment and Plan: * history of iron deficiency anemia * 1 unit RBC transfused on 09/07 * monitor for bleeding * Hemoglobin 9.1 today * 09/11 changed to comfort measures. (6) Altered mental status: Code(s): R41.82 - Altered mental status, unspecified Status: Acute Assessment and Plan: * CT head no acute process * family patient has been getting more forgetful home, consult Neurology * UA negative for UTI * CT chest abdomen pelvis without any acute infectious process * 09/10 drowsy today. Started on NS @ 75 ml/hr. * -09/11 changed to comfort measures. See HPI above. (7) Constipation: Code(s): K59.00 - Constipation, unspecified Status: Acute Assessment and Plan: * KUB showed no dilated loops of bowel. There is a moderate volume of stool in the colon. Nonobstructive bowel gas pattern. * suppository as needed * MiraLax and senna as needed (8) Prostate cancer: Code(s): C61 - Malignant neoplasm of prostate Status: Acute Assessment and Plan: * consult oncology * continue home medication * 09/11 changed to comfort measures. (9) Electrolyte abnormality: Code(s): E87.8 - Other disorders of electrolyte and fluid balance, not elsewhere classified Status: Acute Assessment and Plan: * Calcium remains low at 6.7, received Calcium Gluconate 1 gram IVPB x1. * Sodium decreased but stable at 140. * 09/11 changed to comfort measures. Plan VTE prophylaxis. SCDs; holding pharmacologic VTE Subjective Date/time seen: 09/11/24 09:59 Interval history: Family at bedside and wanted all measures done this morning. Family continued to want patient transferred to [facility] [place] and was awaiting bed. Called [facility] and spoke to Collette, no beds available. WBC 0.8 and absolute neutrophils 0.24, patient is on reverse isolation. Patient spiked a fever today of 102.7 rectal. Blood cultures and urine culture done. Patient was started on IV antibiotics Doxycycline, Zosyn, and Vancomycin. Patient with blood sugars dipping to 42 this morning. Patient was given D50 with blood sugar improved to 149, blood sugar later dropped to 67. Patient given D50 with blood sugar increased to 145. Patient started on D10 @ 100 ml/hr. NG tube placed to start tube feeds and for medications. Martinez placed. Continued on 02@4LNC. Chest X-ray showed: IMPRESSION: 1. Worsened airspace opacities in the mid and lower lung zones, consistent with atelectasis versus pneumonia. 2. Worsened small right pleural effusion. 3. Sclerotic lesions of bone, consistent with metastatic disease. Lactic acid 1.8, Ammonia 16, MRSA PCR not detected. Patient transferred this afternoon to the IMU and shortly after arrival blood pressure was 61/42. Family at bedside. Family decided that they did not want patient to be intubated and that they would like patient to be comfort measures only. Comfort measures initiated. [employer] called and came to patient room. Review of Systems Review of Systems: All systems reviewed & are unremarkable except as noted in HPI and below Exam Resp: Auscultation: crackles bilateral at the base and diminished lung sounds Cardio: Rate: tachycardic GI: Inspection: distended GI Palp: Yes Soft to palpation Other: hypoactive Skin: General skin exam: no rashes or lesions noted Extrem: General: no pedal edema Psych: Other: Lethargic. Open eyes occasionally to verbal stimuli Objective Data Vital Signs Vital Signs: Vital Signs - 24 hr 09/10/24 17:00 09/10/24 20:07 09/10/24 20:00 Temperature 99.3 F 99.4 F Pulse Rate 103 H 95 Respiratory Rate 20 16 Blood Pressure 82/51 L 104/45 L Pulse Oximetry 96 94 94 Oxygen Delivery Nasal Cannula Oxygen Flow Rate 4 09/11/24 05:56 Temperature 98.2 F Pulse Rate 106 H Respiratory Rate 20 Blood Pressure 101/48 L Pulse Oximetry 98 Oxygen Delivery Oxygen Flow Rate Intake/Output Intake/Output: Intake & Output 09/08/24 09/09/24 09/10/24 09/11/24 23:59 23:59 23:59 23:59 Intake Total 0 720 630 550 Output Total 647 814 4653 Balance -500 370 -1320 550 Meds/Results Medications: Active Medications Generic Name Dose Route Start Last Admin Trade Name Freq PRN Reason Stop Dose Admin Acetaminophen 650 mg 09/06/24 23:53 09/08/24 16:56 Acetaminophen 325 Mg Tablet PO 650 mg Q4H PRN Administration Mild Pain (1-3) or Fever Acetaminophen 650 mg 09/10/24 12:38 09/11/24 08:57 Acetaminophen 650 Mg Suppository RECTAL 650 mg Q6H PRN Administration Mild Pain (1-3) or Fever Bicalutamide 50 mg 09/08/24 09:00 09/11/24 08:58 Bicalutamide (*Chemo) 50 Mg Tablet PO 50 mg DAILY MARK Administration Calcitriol 0.5 mcg 09/08/24 09:00 09/11/24 08:57 Calcitriol 0.25 Mcg Capsule PO 0.5 mcg DAILY MARK Administration Dextrose 12.5 gm 09/11/24 07:00 Dextrose 50% 25 Gm/50 Ml Syringe IV PUSH PRN PRN Hypoglycemia Protocol Docusate Sodium 100 mg 09/07/24 17:00 09/11/24 08:57 Docusate Sodium 100 Mg Capsule PO 100 mg BID MARK Administration Famotidine 20 mg 09/07/24 17:00 09/11/24 08:57 Famotidine 20 Mg Tablet PO 20 mg BID MARK Administration Ferrous Sulfate 325 mg 09/08/24 09:00 09/11/24 08:57 Ferrous Sulfate [address] PO 325 mg DAILY MARK Administration Furosemide 20 mg 09/07/24 09:00 09/07/24 10:30 Furosemide 20 Mg Tablet PO 20 mg Q48H MARK Administration Glucagon 1 mg 09/11/24 07:00 Glucagon For Inj 1 Mg Vial IM PRN PRN Hypoglycemia Protocol Glucose 15 gm 09/11/24 07:00 Glucose Oral Gel 15 Gm Of Glucse In 37.5 Gm Tube PO PRN PRN Hypoglycemia Protocol Sodium Chloride 1,000 mls @ 75 mls/hr 09/10/24 12:00 09/10/24 17:17 Normal Saline Iv IV CONT 75 mls/hr .[id number] MARK Administration Dextrose 1,000 mls @ 100 mls/hr 09/11/24 07:00 Dextrose 5% 1,000 Ml IVPB PRN PRN Hypoglycemia Protocol Meclizine HCl 25 mg 09/07/24 10:24 Meclizine Hcl 25 Mg Tablet PO TID PRN Dizziness Mirabegron 50 mg 09/08/24 09:00 09/11/24 08:58 Mirabegron 50 Mg Er Tablet PO 50 mg DAILY MARK Administration Nystatin 5 ml 09/09/24 13:00 09/11/24 08:57 Nystatin 100,000 Units/Ml Susp 5 Ml Oral.Susp PO 5 ml QID MARK Administration Paroxetine HCl 10 mg 09/08/24 09:00 09/11/24 08:58 Paroxetine 10 Mg Tablet PO 10 mg DAILY MARK Administration Perflutren Lipid Microsphere 0 ml 09/08/24 12:05 Perflutren Lipid Microspheres 1.5 Ml Vial Diluted To 10 Ml Total Volume IV PUSH 09/11/24 12:05 ONCE PRN adequate visualization Protocol Polyethylene Glycol 17 gm 09/08/24 09:00 09/11/24 08:57 Polyethylene Glycol 3350 17 Gm Powd.Pack PO 17 gm QAM MARK Administration Senna/Docusate Sodium 1 tab 09/07/24 21:00 09/10/24 21:03 Senna/Docusate Sodium Tablet PO Not Given HS MARK Tamsulosin HCl 0.4 mg 09/07/24 21:00 09/10/24 21:03 Tamsulosin Hcl 0.4 Mg Capsule PO Not Given HS MARK Tramadol HCl 50 mg 09/07/24 15:27 Tramadol Hcl (*Crx) 50 Mg Tablet PO Q6H PRN Moderate Pain Radiology Results: ITS Impressions Head CT 09/06/24 17:45 IMPRESSION: No acute intracranial process. Chest/Abdomen/Pelvis CT 09/06/24 18:01 IMPRESSION: Moderate right and small left pleural effusions. Mediastinal lymphadenopathy. Chronic bone lesions concerning for metastatic disease. Modified Barium Swallow 09/09/24 09:55 IMPRESSION: 1. No laryngeal penetration or aspiration. 2. Please refer to the speech therapy report for recommendations. Abdomen X-Ray 09/10/24 13:32 IMPRESSION: 1. Nonobstructive bowel gas pattern. 2. Sclerotic lesions of bone, consistent with metastatic disease. Chest X-Ray 09/10/24 15:51 IMPRESSION: 1. Airspace opacities in the perihilar regions and lower lung zones, consistent with atelectasis versus pneumonia. 2. Pleural thickening at right lung apex, consistent with metastatic disease. 3. Sclerotic lesions of bone, consistent with metastatic disease. Thoracentesis Ultrasound 09/10/24 15:58 IMPRESSION: 1. Successful ultrasound-guided thoracentesis yielding 1000 mL of clear, yellow fluid. Labs Labs: Laboratory Results - last 24 hr 09/10/24 09/10/24 09/10/24 12:40 14:51 15:24 WBC RBC Hgb Hct MCV MCH MCHC RDW Plt Count MPV Immature Gran % (Auto) Neut % (Auto) Lymph % (Auto) Noble % (Auto) Eos % (Auto) Baso % (Auto) Lymph # (Auto) Noble # (Auto) Eos # (Auto) Baso # (Auto) Abs Immat Gran (auto) Absolute Neuts (auto) Absolute Nucleated RBC Total Counted Neutrophils % (Manual) Band Neutrophils % Lymphocytes % (Manual) Monocytes % (Manual) Nucleated RBC % Abs Neuts (Manual) Abs Lymphs (Manual) Abs Monocytes (Manual) Platelet Estimate % Immature Plt Fraction Hypochromasia Anisocytosis Schistocytes PT 17.9 H D INR 1.4 Puncture Site Right radial ABG pH 7.471 H ABG pCO2 27.8 L ABG pO2 64.6 L ABG PO2/FiO2 Ratio 1.79 ABG HCO3 19.8 L ABG O2 Saturation 94.2 L ABG O2 Content 11.7 L ABG Base Excess -3.1 A-a Gradient 159.8 Oxyhemoglobin 91.8 Total Hemoglobin 9.0 L O2 Delivery Device Nasal cannula O2 Liters/Min 4.0 FiO2 36 Sodium Potassium Chloride Carbon Dioxide Anion Gap BUN Creatinine Estim Creat Clear Calc Estimated GFR Glucose 73 POC Capillary Glucose Calcium Magnesium Total Bilirubin 0.9 AST ALT Alkaline Phosphatase Lactate Dehydrogenase 506 H Total Protein 6.0 L Albumin 2.9 L Triglycerides 123 Cholesterol 187 Amylase 52 Pleural Fluid Source Pleural Color Pleural Appearance Pleural pH > 7.500 H Pleural RBC Pleural Nuc Cells Pleural Neutrophils Pleural Lymphocytes Pleural Monocytes Pleural Macrophages Pleural Mesothelial 09/10/24 09/11/24 09/11/24 15:45 06:23 07:00 WBC 0.8 L* RBC 2.34 L Hgb 8.4 L Hct 25.2 L MCV 107.7 H MCH 35.9 H MCHC 33.3 RDW 22.5 H Plt Count 79 L MPV 8.8 Immature Gran % (Auto) Not Reportable Neut % (Auto) Not Reportable Lymph % (Auto) Not Reportable Noble % (Auto) Not Reportable Eos % (Auto) Not Reportable Baso % (Auto) Not Reportable Lymph # (Auto) Not Reportable Noble # (Auto) Not Reportable Eos # (Auto) Not Reportable Baso # (Auto) Not Reportable Abs Immat Gran (auto) Not Reportable Absolute Neuts (auto) Not Reportable Absolute Nucleated RBC Not Reportable Total Counted 50 Neutrophils % (Manual) 12 L Band Neutrophils % 18 H Lymphocytes % (Manual) 13 L Monocytes % (Manual) 7 Nucleated RBC % Not Reportable Abs Neuts (Manual) 0.24 L Abs Lymphs (Manual) 0.10 L Abs Monocytes (Manual) 0.05 L Platelet Estimate Decreased % Immature Plt Fraction 1.2 Hypochromasia 1+ Anisocytosis 1+ Schistocytes None seen PT INR Puncture Site ABG pH ABG pCO2 ABG pO2 ABG PO2/FiO2 Ratio ABG HCO3 ABG O2 Saturation ABG O2 Content ABG Base Excess A-a Gradient Oxyhemoglobin Total Hemoglobin O2 Delivery Device O2 Liters/Min FiO2 Sodium 140 Potassium 3.6 Chloride 111 H Carbon Dioxide 21 L Anion Gap 8 BUN 26 H Creatinine 2.10 H Estim Creat Clear Calc Not Reportable Estimated GFR 30 L Glucose 42 L* POC Capillary Glucose 45 L* Calcium 6.7 L Magnesium 1.8 Total Bilirubin 0.8 AST 43 ALT 14 Alkaline Phosphatase 56 Lactate Dehydrogenase Total Protein 5.0 L Albumin 2.7 L Triglycerides Cholesterol Amylase Pleural Fluid Source Pleural fluid Pleural Color Yellow Pleural Appearance Hazy Pleural pH Pleural RBC < 2000 Pleural Nuc Cells 1138 H Pleural Neutrophils 72 H Pleural Lymphocytes 13 Pleural Monocytes 8 Pleural Macrophages 2 Pleural Mesothelial 5 09/11/24 07:37 WBC RBC Hgb Hct MCV MCH MCHC RDW Plt Count MPV Immature Gran % (Auto) Neut % (Auto) Lymph % (Auto) Noble % (Auto) Eos % (Auto) Baso % (Auto) Lymph # (Auto) Noble # (Auto) Eos # (Auto) Baso # (Auto) Abs Immat Gran (auto) Absolute Neuts (auto) Absolute Nucleated RBC Total Counted Neutrophils % (Manual) Band Neutrophils % Lymphocytes % (Manual) Monocytes % (Manual) Nucleated RBC % Abs Neuts (Manual) Abs Lymphs (Manual) Abs Monocytes (Manual) Platelet Estimate % Immature Plt Fraction Hypochromasia Anisocytosis Schistocytes PT INR Puncture Site ABG pH ABG pCO2 ABG pO2 ABG PO2/FiO2 Ratio ABG HCO3 ABG O2 Saturation ABG O2 Content ABG Base Excess A-a Gradient Oxyhemoglobin Total Hemoglobin O2 Delivery Device O2 Liters/Min FiO2 Sodium Potassium Chloride Carbon Dioxide Anion Gap BUN Creatinine Estim Creat Clear Calc Estimated GFR Glucose POC Capillary Glucose 149 H Calcium Magnesium Total Bilirubin AST ALT Alkaline Phosphatase Lactate Dehydrogenase Total Protein Albumin Triglycerides Cholesterol Amylase Pleural Fluid Source Pleural Color Pleural Appearance Pleural pH Pleural RBC Pleural Nuc Cells Pleural Neutrophils Pleural Lymphocytes Pleural Monocytes Pleural Macrophages Pleural Mesothelial Quality VTE Prophylaxis VTE prophylaxis: mechanical ordered
[2024-09-11 10:32] LABS: Ammonia 16 umol/L (9-30)
--- NOTE | 2024-09-11 11:04 | PCOTNOTE ---
Per RN, Patient is unable to participate in therapy services. Patient has a decline in status and being closely monitored.
[2024-09-11] MEDS: IBUPROFEN IV 400 MG in SODIUM CHLORIDE 0.9% IV 100 ML 208 MG IVPB (11:40)
[2024-09-11 11:57] LABS: Glucose Point of Care 67 mg/dl (65-105)
[2024-09-11 12:13] LABS: Soluble Transferrin Receptor 1.17 mg/L (0.76-1.76)
[2024-09-11] MEDS: PIPERACILLN/TAZ 3.375GM/NS50ML 3.375 GM/50 ML BAG IVPB (12:20)
[2024-09-11 12:32] LABS: Lactic Acid Reflex 1.8 mmol/L (0.7-2.0)
[2024-09-11 12:58] LABS: Glucose Point of Care 145 mg/dl (65-105)
[2024-09-11] MEDS: DOXYCYCLINE 100 MG/NS 100 ML 100 MG/100 ML BAG IVPB (13:30)
--- NOTE | 2024-09-11 14:25 | PC.NURSE ---
Received report from shift mechanic that pt unable to swallow pills. On assessment, pt found to be jaundiced, responding to painful stimuli only. Critical labs called off of AM draws were glucose of 42 and WBC 0.8. Provider made aware. Code status talk with family by this RN. Family wants pt to remain full code. Provider made aware. Pt unable to take morning meds. Used sponge to try to coat tongue to help with mouth sores. Martinez placed. Order in for NG placement, requested fluoroscopy from provider due to pt platelet count and drowsiness. Report called to Roxi. Pt taken to 204 from radiology.
--- NOTE | 2024-09-11 14:29 | PCPTNOTE ---
Patient transferred to IMU from medical floor due to change in medical status. Will wait orders to resume PT or Discharge from PT.
--- NOTE | 2024-09-11 14:30 | PC.NURSE ---
Patient to new room. Monitor applied. RN to bedside to assess patient as charted. PCT took vitals. Blood pressure and oxygen saturation's low as charted. ICU/IMU charge nurse and Kaila [employer] CRM DEVELOPER to bedside to assess patient. graduate recruiter asked family/poa if they wanted the patient intubated/moved to ICU, Family/poa stated that patient would not want that with all his health issues. Kaila RASHID placed comfort measure orders and DNR status.
[2024-09-11 14:48] LABS: MRSA (PCR) NOT DETECTED (NOT DETECTE)
[2024-09-11 14:58] LABS: Methylmalonic Acid 144 nmol/L (85-423)
[2024-09-11] MEDS: LORazepam INJ (*CRX) 2 MG/ML VIAL IV PUSH (15:22)
[2024-09-11] MEDS: MORPHINE SULFATE (*CRX) 2 MG/ML INJ IV PUSH (15:22)
--- NOTE | 2024-09-11 22:01 | PC.NURSE ---
This patient, Balaji Alonzo, was transferred to [[id number] ] on 09/11/24 at 2201. Personal belongings sent with patient. Report given to [Tamara velez ]. Appropriate documentation sent with patient.
--- NOTE | 2024-09-11 22:07 | ADMGEN ---
This patient, Balaji Alonzo, was admitted to [facility] S[facility] Room 327-01. Patient/family oriented to hospital policies and general routines including ID bracelet, bed and alarms, visiting hours, pain management, procedures, bathroom and other care routines, personal items, smoking policy, room service/diet, and visiting hours. Information on how to activate the Rapid Response Team has been discussed. Patient/Family are encouraged to report perceived risks to care and to ask questions if they do not understand what they are told or what they should do.
--- NOTE | 2024-09-12 05:27 | PC.NURSE ---
Pt on this date at 0505. Dr Antoine notified at 0511.
--- NOTE | 2024-09-12 08:59 | PM.DDS ---
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 Family wanted patient a full code. Work-up findings: Lab work shows no leukocytosis. Hemoglobin 7.5, MCV elevated at 109. Most recent hemoglobin in 2021 was 9.7. Platelets are also low at 101. ABG reveals a low hemoglobin at 7. BUN of 26 and a creatinine of 1. Lactic acid 1.2. CK normal at 150. TSH within normal limits. EKG shows sinus rhythm with frequent supraventricular premature complexes, no ischemic changes. CT brain shows no acute intracranial process. CT chest abdomen pelvis shows a moderate right and small left pleural effusions. mediastinal lymphadenopathy and chronic bone lesions concerning for metastatic disease. Transfused 1U PRBC in the ED, He was admitted to be evaluated and managed for symptomatic anemia 09/08 Echocardiogram: Summary 1. Complete two-dimensional, color flow and Doppler transthoracic echocardiogram is performed. 2. Left ventricular chamber dimension is normal. 3. Left ventricular systolic function is normal, estimated at 65-70%. 4. There is no increased left ventricular wall thickness. 5. The left ventricular diastolic function is grade I diastolic dysfunction. 6. Right ventricular chamber dimension is mildly enlarged. 7. Left atrial chamber dimension is mildly enlarged. 8. There is mild tricuspid valve regurgitation. 9. There is small pericardial effusion. 10. The pericardium appears increased echogenicity of the pericardium. Oncology consulted Neurology consulted 09/10 daughter Mellissa wanted patient transferred to [facility]. Patients Oncologist Dr. Gipson agreeable. Dr. Pelletier accepted patient but was awaiting bed. 09/10 Chest X-ray showed a moderate sized pleural effusion. Ultrasound guided thoracentesis done- Successful ultrasound-guided thoracentesis yielding 1000 mL of clear, yellow fluid. Abdominal X-ray showed nonobstructive gas pattern and sclerotic lesions of bone, consistent with metastatic disease. 09/11 patient more lethargic. Family wanted patient to remain a Full Code. [facility] did not have a bed available. Renal US showed normal left kidney and severe atrophy of left kidney. WBC 0.8 and absolute neutrophils 0.24, patient is on reverse isolation. Patient spiked a fever today of 102.7 rectal. Blood cultures and urine culture done. Blood culture grew gram negative bacilli. Urine culture was negative. Patient was started on IV antibiotics Doxycycline, Zosyn, and Vancomycin. Chest X-rayshowed worsening airspace opacities in the mid and lower lung zones, consistent with atelectasis versus pneumonia. Patient with blood sugars dipping to 42 this morning. Patient was given D50 with blood sugar improved to 149, blood sugar later dropped to 67. Patient given D50 with blood sugar increased to 145. Patient started on D10 @ 100 ml/hr. NG tube placed to start tube feeds and for medications. Martinez placed. Continued on 02@4LNC. Patient tranferred to IMU and shortly after blood pressure dropped to 61/42. Family did not want patient to be intubated and changed patient to comfort measures this afternoon. 09/12 patient and pronounced at 5:05 Additional Data Confirmation of as documented by pronouncing clinician: Pupillary Reflex, Palpable Pulses, Response to Stimuli, Heart Tones and Breath Sounds Family: at bedside Name of Provider Notified: Dr. Antoine Time Provider Notified: 05:11 Was code activated?: No Provider Requests Autopsy: No Family Requests Autopsy: No Director Client Services Notified: Yes (notified 5:25- Asif Apodaca) Date [facility] Notified of : 09/12/24 (spoke to [place]) Time [facility] Notified of : 05:15 Hospice patient?: No
--- NOTE | 2024-09-12 15:30 | PC.NURSE ---
Daughter called back and gave [facility]. Security and [facility] called.
[2024-09-22 08:58] LABS: Amylase, Pleural Fluid 20 U/L; Glucose Pleural Fluid 68 mg/dL; LDH Pleural Fluid 203 U/L; Total Protein Pleural Fluid 3.4 g/dL
== END 2024-09-12 05:05 | disposition expired | DRG 542 ==
LOC: ANHED 22:51 → ANH3MEDSUR 09-07 → ANHIMU 09-14 13:44
PROVIDERS: Internal Medicine Hematology & Oncology; Nurse Practitioner; Nurse Practitioner Gerontology; Admitting Provider Internal Medicine; Emergency Provider Physician Assistant; PCP Internal Medicine Infectious Disease; Visit Provider Nurse Practitioner Family
DX: C79.51 Secondary malignant neoplasm of bone (principal); A41.9 Sepsis, unspecified organism; J18.9 Pneumonia, unspecified organism; J90 Pleural effusion, not elsewhere classified; C61 Malignant neoplasm of prostate; I95.9 Hypotension, unspecified; E87.6 Hypokalemia; E83.51 Hypocalcemia; D63.0 Anemia in neoplastic disease; D53.9 Nutritional anemia, unspecified; E78.5 Hyperlipidemia, unspecified; E78.00 Pure hypercholesterolemia, unspecified; K21.9 Gastro-esophageal reflux disease without esophagitis; R41.82 Altered mental status, unspecified; F32.A Depression, unspecified; Z20.822 Contact with and (suspected) exposure to COVID-19
CPT/HCPCS: 32555; 36415; 36430; 36600; 70450; 71045; 71260; 74018; 74177; 76775; 80053; 81001; 82040; 82042; 82140; 82150; 82247; 82465; 82550; 82607; 82728; 82746; 82805; 82945; 82947; 82948; 83540; 83550; 83605; 83615; 83735; 83880; 83921; 83986; 84155; 84157; 84238; 84311; 84443; 84478; 84484; 85018; 85025; 85055; 85610; 85730; 86850; 86900; 86901; 86920; 87015; 87040; 87086; 87102; 87116; 87186; 87206; 87637; 87641; 88108; 88305; 89051; 92611; 93005; 93306; 96360; 96361; 97161; 97166; 99285; A9270; G0378; J0612; J1741; J1940; J2060; J2270; J2543; J7030; J7050; P9016; Q9967